=== PATIENT | female | born 1945 | race Caucasian/White ===

== ENCOUNTER 2017-04-23 03:10 | Inpatient (IN) | payer MEDICARE, OTHER ==
[2017-04-23] MEDS ORDERED: Ondansetron 4 MG/2 ML SDV IVPUSH ONE (03:39)
[2017-04-23] MEDS ORDERED: Sodium Chloride 0.9% 10 ML Syringe FLUSH PRN (03:39)
[2017-04-23] MEDS ORDERED: methylPREDNISolone Sodium Succinate 125 MG/2 ML SDV IVPUSH ONE (03:40)
[2017-04-23] MEDS ORDERED: Albuterol/Ipratropium 3.0-0.5 MG/3 ML Neb Soln NEB ONE ×2 (03:40→05:22)
[2017-04-23] MEDS ORDERED: Sodium Chloride 0.9% 1,000 ML IV SCH ×2 (03:45→08:15)
--- NOTE | 2017-04-23 03:45 | EDM.PDOC ---
ED HPI GENERAL MEDICAL PROBLEM - General Chief Complaint: Respiratory Problem Stated Complaint: [facility] Time Seen by Provider: 04/23/17 03:30 Source of Information: Reports: Patient, EMS History Limitations: Reports: No Limitations - History of Present Illness INITIAL COMMENTS - FREE TEXT/NARRATIVE: The patient presents by ambulance for shortness of breath and cough. This has been going on for over a week. She got sick with an upper respiratory infection back in February and then she had some RUQ abdominal pain. She has cholilithiasis. She was going to have surgery but she needed to be medically cleared and they found she had A-fib. She had an echocardiogram and stress test and that all looked good. She has no fever or chills today. She has no sore throat, chest pain, abdominal pain, nausea or vomiting. She had to sleep in a chair last night. She does have COPD. Onset: Gradual Duration: Week(s): (1) Severity: Moderate Improves with: Reports: None Worsens with: Reports: None Associated Symptoms: Reports: Cough, Shortness of Breath. Denies: Chest Pain, Fever/Chills, Nausea/Vomiting - Related Data Allergies Allergy/AdvReac Type Severity Reaction Status Date / Time aspirin AdvReac Nausea Verified 04/23/17 03:16 Home Meds: Home Meds Albuterol [Ventolin HFA] 2 puff INH Q4HR PRN 04/23/17 [History] Aspirin [Low Dose Aspirin EC] 81 mg PO DAILY 04/23/17 [History] B2/Vit A,C & E/Lut/Zeaxanth/Mn [Icaps] 2 tab PO DAILY 04/23/17 [History] Diltiazem HCl [Diltiazem 24Hr ER] 240 mg PO DAILY 04/23/17 [History] LORazepam 0.5 mg PO BID PRN 04/23/17 [History] Metoprolol Succinate [Toprol Xl] 25 mg PO DAILY 04/23/17 [History] [place]-3 Fatty Acids/Fish Oil [Fish Oil 1,200 mg Softgel] 1 each PO DAILY [History] Pravastatin Sodium [Pravastatin Sodium] 20 mg PO DAILY 04/23/17 [History] Psyllium Husk [Psyllium Fiber] 1 tab PO DAILY 04/23/17 [History] Rivaroxaban [Xarelto] 20 mg PO DAILY 04/23/17 [History] Tiotropium [Spiriva Handihaler] 1 cap INH DAILY 04/23/17 [History] Valsartan [Valsartan] 40 mg PO DAILY 04/23/17 [History] Past Medical History Cardiovascular History: Reports: High Cholesterol, Hypertension, [place], SOB on Exertion Respiratory History: Reports: COPD Gastrointestinal History: Reports: Cholelithiasis, Hemorrhoids - Past Surgical History GI Surgical History: Reports: Appendectomy Social & Family History - Tobacco Use Smoking Status *Q: Former Smoker Used Tobacco, but Quit: Yes Month Tobacco Last Used: 2018 ED ROS GENERAL - Review of Systems Review Of Systems: See Below Constitutional: Reports: No Symptoms HEENT: Reports: No Symptoms Respiratory: Reports: Shortness of Breath, Cough Cardiovascular: Reports: No Symptoms Endocrine: Reports: No Symptoms GI/Abdominal: Reports: No Symptoms : Reports: No Symptoms Musculoskeletal: Reports: No Symptoms Skin: Reports: No Symptoms Neurological: Reports: No Symptoms ED EXAM, GENERAL - Physical Exam Exam: See Below Exam Limited By: No Limitations General Appearance: Alert, No Apparent Distress Ears: Normal External Exam Nose: Normal Inspection Head: Atraumatic, Normocephalic Neck: Normal Inspection Respiratory/Chest: No Respiratory Distress, Lungs Clear, Normal Breath Sounds Cardiovascular: No Edema, No Murmur, Irregularly Irregular GI/Abdominal: Soft, Non-Tender, No Organomegaly, No Mass Back Exam: Normal Inspection Extremities: Normal Inspection EKG INTERPRETATION EKG Date: 04/23/17 Time: 03:21 Rhythm: A-Fib Rate (Beats/Min): 101 [place]: Normal QRS: Normal ST-T: Normal QT: Normal EKG Interpretation Comments: PVC Course - Vital Signs Last Recorded V/S: Last Vital Signs Temp 97.5 F 04/23/17 03:16 Pulse 111 H 04/23/17 05:04 Resp 20 04/23/17 05:04 BP 155/92 H 04/23/17 05:03 Pulse Ox 96 04/23/17 05:30 - Orders/Labs/Meds Orders: Active Orders 24 hr Category Date Time Status Cardiac Monitoring [RC] . DIRECTED Care 04/23/17 03:39 Active EKG Documentation Completion [RC] STAT Care 04/23/17 03:40 Active Oxygen Therapy [RC] PRN Care 04/23/17 03:39 Active Peripheral IV Care [RC] . DIRECTED Care 04/23/17 03:40 Active RT Aerosol Therapy [RC] ASDIRECTED Care 04/23/17 03:40 Active RT Aerosol Therapy [RC] ASDIRECTED Care 04/23/17 05:22 Active Chest 1V Frontal [CR] Stat Exams 04/23/17 03:40 Taken Sodium Chloride 0.9% [Normal Saline] 1,000 ml Med 04/23/17 03:45 Active IV ASDIRECTED Sodium Chloride 0.9% [Saline Flush] Med 04/23/17 03:39 Active 10 ml FLUSH ASDIRECTED PRN ED Antiemetic Medication Reflex [OM.PC] Stat Oth 04/23/17 03:39 Ordered Peripheral IV Insertion Adult [OM.PC] Stat Oth 04/23/17 03:39 Ordered Medication Orders Sodium Chloride (Normal Saline) 1,000 mls @ 125 mls/hr IV ASDIRECTED REX Last Admin: 04/23/17 03:50 Dose: 125 mls/hr Sodium Chloride (Saline Flush) 10 ml FLUSH ASDIRECTED PRN PRN Reason: Keep Vein Open Last Admin: 04/23/17 03:53 Dose: 10 ml Labs: Laboratory Tests 04/23/17 04/23/17 04/23/17 Range/Units 03:33 03:33 03:33 WBC 8.72 (3.98-10.04) K/mm3 RBC 4.36 (3.98-5.22) M/mm3 Hgb 12.7 (11.2-15.7) gm/L Hct 38.7 (34.1-44.9) % MCV 88.8 (79.4-94.8) fl MCH 29.1 (25.6-32.2) pg MCHC 32.8 (32.2-35.5) g/dl RDW Std Deviation 46.9 H (36.4-46.3) fL Plt Count 245 (182-369) K/mm3 MPV 10.0 (9.4-12.3) fl Neut % (Auto) 69.5 (34.0-71.1) % Lymph % (Auto) 17.9 L (19.3-51.7) % [place] % (Auto) 7.8 (4.7-12.5) % Eos % (Auto) 4.2 (0.7-5.8) Baso % (Auto) 0.5 (0.1-1.2) % Neut # (Auto) 6.06 (1.56-6.13) K/mm3 Lymph # (Auto) 1.56 (1.18-3.74) K/mm3 [place] # (Auto) 0.68 H (0.24-0.36) K/mm3 Eos # (Auto) 0.37 H (0.04-0.36) K/mm3 Baso # (Auto) 0.04 (0.01-0.08) K/mm3 Sodium 133 L (136-145) mEq/L Potassium 4.2 (3.5-5.1) mEq/L Chloride 96 L (98-107) mEq/L Carbon Dioxide 31 (21-32) mEq/L Anion Gap 10.2 (5-15) BUN 14 (7-18) mg/dL Creatinine 0.7 (0.55-1.02) mg/dL Est Cr Clr Drug Dosing 57.46 mL/min Estimated GFR (MDRD) > 60 (>60) mL/min BUN/Creatinine Ratio 20.0 H (14-18) Glucose 111 (83-115) mg/dL Calcium 8.7 (8.5-10.1) mg/dL Total Bilirubin 0.2 (0.2-1.0) mg/dL AST 45 H (15-37) U/L ALT 74 H (14-59) U/L Alkaline Phosphatase 77 (46-116) U/L Troponin I < 0.017 (0.00-0.056) ng/mL NT-Pro-B Natriuret Pep 1512 H (0-125) pg/mL Total Protein 7.2 (6.4-8.2) g/dl Albumin 3.8 (3.4-5.0) g/dl Globulin 3.4 gm/dL Albumin/Globulin Ratio 1.1 (1-2) Meds: Medications Generic Name Dose Route Start Last Admin Trade Name Freq PRN Reason Stop Dose Admin Sodium Chloride 1,000 mls @ 125 mls/hr 04/23/17 03:45 04/23/17 03:50 Normal Saline IV 125 mls/hr ASDIRECTED REX Administration Sodium Chloride 10 ml 04/23/17 03:39 04/23/17 03:53 Saline Flush FLUSH 10 ml ASDIRECTED PRN Administration Keep Vein Open Discontinued Medications Generic Name Dose Route Start Last Admin Trade Name Mary PRN Reason Stop Dose Admin Albuterol/Ipratropium 3 ml 04/23/17 03:40 04/23/17 03:56 Duoneb 3.0-0.5 Mg/3 Ml NEB 04/23/17 03:41 3 ml ONETIME ONE Administration Albuterol/Ipratropium 3 ml 04/23/17 05:22 04/23/17 05:30 Duoneb 3.0-0.5 Mg/3 Ml NEB 04/23/17 05:23 3 ml ONETIME ONE Administration Methylprednisolone Sodium Succinate 125 mg 04/23/17 03:40 04/23/17 03:53 Solu-Medrol IVPUSH 04/23/17 03:41 125 mg ONETIME ONE Administration Ondansetron HCl 4 mg 04/23/17 03:39 04/23/17 03:51 Zofran IVPUSH 04/23/17 03:40 4 mg ONETIME ONE Administration Ondansetron HCl Confirm 04/23/17 03:53 04/23/17 03:55 Zofran Administered 04/23/17 03:54 Not Given Dose 4 mg .ROUTE .STK-MED ONE - Re-Assessments/Exams Free Text/Narrative Re-Assessment/Exam: 04/23/17 03:47 She was 87% on room air when she arrived. I ordered oxygen, labs, CXR, IV NS at 125mL/hr, duoneb, Solu-medrol 125mg IV and zofran 4mg IV because she said prednisone made her sick. 04/23/17 05:25 Her EKG shows atrial fib with no acute changes. Her CXR shows emphysema but no infiltrates and no congestive changes. Her CBC looks good. Her Na was a little low at 133. Her AST was elevated at 45 and ALT is elevated at 74. Her troponin is negative. Her BNP is elevated at 1512 but her CXR looks good and she has no edema in her legs. She feels much better and she sounds better. She still has some wheezing. I ordered another duoneb and I took her off her oxygen and she went down to 89%. 04/23/17 06:09 After the 2nd treatment I took her off the oxygen and her oxygen saturations dipped down to 79%. I put her back on the oxygen. She feels better but with the low oxygen saturations I cannot send her home. I called Gill Silverio from our hospitalist service and she accepted the patient. Departure - Departure Time of Disposition: 06:10 Disposition: Admitted As Inpatient 65 Condition: Fair Clinical Impression: COPD exacerbation, Hypoxia, Elevated brain natriuretic peptide (BNP) level - Discharge Information Referrals: Alfa Reid MD [Primary Care Provider] - Forms: ED Department Discharge - My Orders Last 24 Hours: My Active Orders 04/23/17 03:39 Cardiac Monitoring [RC] . DIRECTED Oxygen Therapy [RC] PRN Sodium Chloride 0.9% [Saline Flush] 10 ml FLUSH ASDIRECTED PRN ED Antiemetic Medication Reflex [OM.PC] Stat Peripheral IV Insertion Adult [OM.PC] Stat 04/23/17 03:40 EKG Documentation Completion [RC] STAT Peripheral IV Care [RC] . DIRECTED RT Aerosol Therapy [RC] ASDIRECTED Chest 1V Frontal [CR] Stat 04/23/17 03:45 Sodium Chloride 0.9% [Normal Saline] 1,000 ml IV ASDIRECTED 04/23/17 05:22 RT Aerosol Therapy [RC] ASDIRECTED - Assessment/Plan Last 24 Hours: My Active Orders 04/23/17 03:39 Cardiac Monitoring [RC] . DIRECTED Oxygen Therapy [RC] PRN Sodium Chloride 0.9% [Saline Flush] 10 ml FLUSH ASDIRECTED PRN ED Antiemetic Medication Reflex [OM.PC] Stat Peripheral IV Insertion Adult [OM.PC] Stat 04/23/17 03:40 EKG Documentation Completion [RC] STAT Peripheral IV Care [RC] . DIRECTED RT Aerosol Therapy [RC] ASDIRECTED Chest 1V Frontal [CR] Stat 04/23/17 03:45 Sodium Chloride 0.9% [Normal Saline] 1,000 ml IV ASDIRECTED 04/23/17 05:22 RT Aerosol Therapy [RC] ASDIRECTED
[2017-04-23] MEDS ORDERED: Ondansetron 4 MG/2 ML SDV ONE (03:53)
--- NOTE | 2017-04-23 07:32 | CR ---
Chest: Portable view of the chest was obtained. Comparison: No prior chest x-ray. Heart size and mediastinum are normal. Lungs are clear. Bony structures are grossly intact. Impression: 1. Nothing acute is seen on portable chest x-ray. Diagnostic code #1
[2017-04-23] MEDS ORDERED: Diltiazem 25 MG/5 ML SDV IVPUSH ONE (08:08)
[2017-04-23] MEDS ORDERED: Morphine 2 MG/ML Syringe IVPUSH PRN (08:17)
[2017-04-23] MEDS ORDERED: Ondansetron 4 MG/2 ML SDV IVPUSH PRN (08:17)
[2017-04-23] MEDS ORDERED: Ondansetron 4 MG Tab.DIS PO PRN (08:17)
--- NOTE | 2017-04-23 08:20 | PCM.HP ---
H&P History of Present Illness - General Date of Service: 04/23/17 Admit Problem/Dx: Admission Diagnosis/Problem Admission Diagnosis/Problem COPD, Moderate chronic obstructive pulmonary disease Source of Information: Patient, Other (ED notes) History Limitations: Reports: No Limitations - History of Present Illness Initial Comments - Free Text/Narative: Sade is a pleasant, talkative 71yo female admitted early this morning with COPD exacerbation and hypoxia- oxygen saturations at 79% on RA, atrial fibrillation newly diagnosed 2 weeks ago now in RVR. She presented to ED last night with SOB on exertion while at [employer]. She was unable to catch her breath and felt racing heart beats. Denied any c/o CP or dizziness at that time just unable to catch her breath. She gives me a history of not feeling right since early February after a "bad cold". She went into her PCP, Dr. Reid around 3 weeks after developing cough and congestion, was placed on abx, then on "prednisone". Since that time she has not felt good. She also developed RUQ abdominal pain, was found to have gallstones. In preparation for cholecystectomy, EKG was performed and she was found to be in new onset afib , this was around 2 weeks ago. She was started on cardizem then toprol was added for further rate control. She had echocardiogram and stress testing evaluation both which patient states were "normal". Echo results have been requested for review. PMH includes COPD (quit smoking 8 years ago), Hx of AMI at age 49 (angiogram but no intervention or stenting per patient report), HTN, HLD, hemorrhoids, gallstones, anxiety. Patient is Full Code status. PCP is Dr. Reid with [facility] in [place]. - Related Data Allergies/Adverse Reactions: Allergies Allergy/AdvReac Type Severity Reaction Status Date / Time nicotine [From Nicoderm CQ] AdvReac Mild Rash Verified 04/23/17 10:43 metals Allergy Rash Uncoded 04/23/17 08:04 Home Medications: Home Meds Albuterol [Ventolin HFA] 2 puff INH Q4HR PRN 04/23/17 [History] Aspirin [Low Dose Aspirin EC] 81 mg PO DAILY 04/23/17 [History] B2/Vit A,C & E/Lut/Zeaxanth/Mn [Icaps] 2 tab PO DAILY 04/23/17 [History] Diltiazem HCl [Diltiazem 24Hr ER] 240 mg PO DAILY 04/23/17 [History] LORazepam 0.5 mg PO BID PRN 04/23/17 [History] Metoprolol Succinate [Toprol Xl] 25 mg PO DAILY 04/23/17 [History] Nicotine Polacrilex [Nicotine Lozenge] 2 mg BUCCAL DAILY PRN 04/23/17 [History] [place]-3 Fatty Acids/Fish Oil [Fish Oil 1,200 mg Softgel] 1 cap PO DAILY [History] Pravastatin Sodium [Pravastatin Sodium] 20 mg PO DAILY 04/23/17 [History] Psyllium Husk [Psyllium Fiber] 1 cap PO DAILY 04/23/17 [History] Rivaroxaban [Xarelto] 20 mg PO DAILY 04/23/17 [History] Tiotropium [Spiriva Handihaler] 1 cap INH DAILY 04/23/17 [History] Valsartan [Valsartan] 40 mg PO DAILY 04/23/17 [History] Past Medical History Cardiovascular History: Reports: High Cholesterol, Hypertension, [place], SOB on Exertion Respiratory History: Reports: COPD Gastrointestinal History: Reports: Cholelithiasis, Hemorrhoids - Past Surgical History GI Surgical History: Reports: Appendectomy Social & Family History - Tobacco Use Smoking Status *Q: Former Smoker Used Tobacco, but Quit: Yes Month Tobacco Last Used: 2009 - Caffeine Use Caffeine Use: Reports: Other Other Caffeine Use: drinks decaffinated coffee - Recreational Drug Use Recreational Drug Use: No H&P Review of Systems - Review of Systems: Review Of Systems: See Below General: Reports: Malaise, Fatigue. Denies: Fever, Chills, Weakness HEENT: Reports: No Symptoms. Denies: Headaches Pulmonary: Reports: Shortness of Breath, Wheezing, Cough. Denies: Sputum, Hemoptysis Cardiovascular: Reports: Palpitations, Dyspnea on Exertion, Orthopnea, Lightheadedness. Denies: Chest Pain, Edema, Syncope Gastrointestinal: Reports: No Symptoms Genitourinary: Reports: No Symptoms Musculoskeletal: Reports: No Symptoms Psychiatric: Reports: Other (situational depression with multiple losses of family and friends (9 deaths in the past 6 months); states she is handling this "pretty well") Neurological: Reports: No Symptoms. Denies: Confusion, Headache, Numbness, Tingling Hematologic/Lymphatic: Denies: Anemia Exam - Exam Exam: See Below - Vital Signs Vital Signs: Last Vital Signs Temp 97.5 F 04/23/17 03:16 Pulse 111 H 04/23/17 05:04 Resp 20 04/23/17 05:04 BP 155/92 H 04/23/17 05:03 Pulse Ox 96 04/23/17 05:30 Weight: 144 lb 11.2 oz - Exam Quality Assessment: Supplemental Oxygen General: Alert, Oriented, Cooperative, Other (pleasant and talkative) HEENT: Conjunctiva Clear, EOMI, Hearing Intact, Mucosa Moist & [place], Pupils Equal, Pupils Reactive, PERRLA Neck: Supple Lungs: Normal Respiratory Effort, Decreased Breath Sounds, Rhonchi, Wheezing Cardiovascular: Tachycardia GI/Abdominal Exam: Normal Bowel Sounds, Soft, Non-Tender (Female) Exam: Deferred Rectal (Female) Exam: Deferred Back Exam: Normal Inspection Extremities: Normal Inspection, No Pedal Edema, Normal Capillary Refill Peripheral Pulses: 2+: Dorsalis Pedis (L), Dorsalis Pedis (R) Skin: Warm, Dry, Intact Neurological: Cranial Nerves Intact Neuro Extensive - Mental Status: Alert, Oriented x3, Normal Mood/Affect, Normal Cognition, Memory Intact Psychiatric: Alert, Normal Affect - Patient Data Result Diagrams: 04/23/17 03:33 04/23/17 08:23 EKG INTERPRETATION EKG Date: 04/23/17 (822 this morning) Rhythm: A-Fib (with RVR- rate of 150) P-Wave: Absent QRS: Normal EKG Interpretation Comments: A-fib with RVR rate 150's *Q Meaningful Use (ADM) - VTE *Q VTE Criteria *Q: - Stroke *Q Stroke Criteria *Q: - AMI *Q AMI Criteria *Q: - Problem List (1) Atrial fibrillation with RVR SNOMED Code(s): 555535316792718 ICD Code: I48.91 - UNSPECIFIED ATRIAL FIBRILLATION Status: Acute Priority : High Current Visit: Yes (2) COPD exacerbation SNOMED Code(s): 572811932 ICD Code: J44.1 - CHRONIC OBSTRUCTIVE PULMONARY DISEASE W (ACUTE) EXACERBATION Status: Acute Priority: High Current Visit: Yes (3) Elevated brain natriuretic peptide (BNP) level SNOMED Code(s): 604668089 ICD Code: R79.89 - OTHER SPECIFIED ABNORMAL FINDINGS OF BLOOD CHEMISTRY Status: Acute Priority: High Current Visit: Yes (4) Hypoxia SNOMED Code(s): 978096631 ICD Code: R09.02 - HYPOXEMIA Status: Acute Priority: High Current Visit : Yes Problem List Initiated/Reviewed/Updated: Yes Orders Last 24hrs: Active Orders 24 hr Category Date Time Status EKG Documentation Completion [RC] STAT Care 04/23/17 08:09 Ordered RT Incentive Spirometry [RC] Q2HWA Care 04/23/17 08:10 Ordered Smoking Cessation Education [RC] DAILY Care 04/23/17 08:14 Ordered BASIC METABOLIC PANEL,BMP [CHEM] Routine Lab 04/23/17 08:11 Ordered C-REACTIVE PROTEIN [CHEM] Routine Lab 04/23/17 08:11 Ordered MAGNESIUM [CHEM] Routine Lab 04/23/17 08:11 Ordered MYCOPLASMA PNEUMONIAE IGM AB [CHEM] Routine Lab 04/23/17 08:12 Ordered RESPIRATORY PANEL BY PCR [MREF] Routine Lab 04/23/17 08:13 Ordered STREP PNEUMONIAE ANTIGEN [MREF] Routine Lab 04/23/17 08:12 Ordered TROPONIN I [CHEM] Routine Lab 04/23/17 08:11 Ordered Aspirin [Halfprin] Med 04/23/17 09:00 Ordered 81 mg PO DAILY Azithromycin [Zithromax] 500 mg Med 04/23/17 08:15 Ordered Sodium Chloride 0.9% [Normal Saline] 250 ml IV Q24H Diltiazem HCl Med 04/23/17 09:00 Ordered 240 mg PO DAILY Famotidine [Pepcid] Med 04/23/17 09:00 Ordered 20 mg PO BID Metoprolol Succinate [Toprol XL] Med 04/23/17 09:00 Ordered 25 mg PO DAILY Morphine Med 04/23/17 08:17 Ordered 2 mg IVPUSH Q2H PRN Nicotine [Habitrol] Med 04/23/17 09:00 Ordered 21 mg TRDERM DAILY Ondansetron [Zofran ODT] Med 04/23/17 08:17 Ordered 4 mg PO Q4H PRN Ondansetron [Zofran] Med 04/23/17 08:17 Ordered 4 mg IVPUSH Q6H PRN Pravastatin Sodium Med 04/23/17 09:00 Ordered 20 mg PO DAILY Rivaroxaban [Xarelto] Med 04/23/17 09:00 Ordered 20 mg PO DAILY Sodium Chloride 0.9% @ 75 MLS/HR(1000ml Bag) Med 04/23/17 08:15 Ordered Sodium Chloride 0.9% [Normal Saline] 1,000 ml IV ASDIRECTED Tiotropium Med 04/23/17 09:00 Ordered 1 cap INH DAILY Valsartan [Valsartan] Med 04/23/17 09:00 Ordered 40 mg PO DAILY RT Flutter Valve Therapy [RT Acapella] [RESPCARE] Oth 04/23/17 08:10 Ordered Routine Medication Orders Aspirin (Halfprin) 81 mg PO DAILY REX Diltiazem HCl (Dilacor Xr) 240 mg PO DAILY REX Sodium Chloride (Normal Saline) 1,000 mls @ 75 mls/hr IV ASDIRECTED REX Azithromycin 500 mg/ Sodium (Chloride) 250 mls @ 250 mls/hr IV Q24H REX Losartan Potassium (Cozaar) 25 mg PO DAILY REX Metoprolol Succinate (Toprol Xl) 25 mg PO DAILY REX Nicotine (Habitrol) 21 mg TRDERM DAILY [facility] Non-Formulary Medication (Pravastatin Sodium) 20 mg PO DAILY REX Non-Formulary Medication (Rivaroxaban [Xarelto]) 20 mg PO DAILY REX Sodium Chloride (Saline Flush) 10 ml FLUSH ASDIRECTED PRN PRN Reason: Keep Vein Open Last Admin: 04/23/17 03:53 Dose: 10 ml Tiotropium [place] (Spiriva Handihaler) 18 mcg INH DAILY [facility] Assessment/Plan Comment:: I/P: Acute COPD exacerbation with hypoxia -Hx of COPD, remote smoking hx -CXR unremarkable for acute findings in ED-Repeat CXR in am -Influenza negative, obtain resp viral panel, mycoplasma and strep pneumo antigen today -Supplemental oxygen to keep saturations >90% -Solumedrol IVP -Zithromax for antiinflammatory -RT/Nebs/IS/FV Afib with RVR -Newly dx afib 2 weeks ago, was placed on cardizem then added toprol per PCP -Has had workup with echo (requested record) and stress test, both WNL per patient report -Cont xarelto, cardizem---increased toprol dose to 50mg and changed to HS -PRN cardizem IVP for tachycardia- see orders -Obtained repeat EKG this am, confirms afib RVR rate 150's. -Repeat troponin negative -Query sleep apnea- recommend sleep study after discharge/as outpatient Chronic: Anxiety- cont ativan PRN, ? reactive/situational depression with multiple losses in her life over the past 6 months---spiritual care consult. HTN- stable, cont home meds HLD- cont home meds Other: GI prophylax- pepcid DVT prophylax- cont xarelto [employer] consult- heart healthy diet/new onset afib Ambulate, watch HR RT Consult as above Daily labs DC plan: likely DC in 2-3 days pending rate control and weaning from supplemental oxygen Patient is Full Code status PCP is Dr. Reid with [facility]
[2017-04-23] MEDS: Azithromycin 500 MG in Sodium Chloride 0.9% 250 ML IV SCH (08:57)
[2017-04-23] MEDS ORDERED: Metoprolol Succinate 25 MG Tab.ER PO SCH (09:00)
[2017-04-23] MEDS: Rivaroxaban 10 MG Tab PO SCH (09:00)
[2017-04-23] MEDS: Diltiazem 240 MG Cap.ER PO SCH (09:00)
[2017-04-23] MEDS ORDERED: Nicotine 21 MG/24 Hr Patch TRDERM SCH (09:00)
[2017-04-23] MEDS: Losartan 25 MG Tab PO SCH (09:01)
[2017-04-23] MEDS: Aspirin 81 MG Tab.EC PO SCH (09:01)
[2017-04-23] MEDS: Famotidine 20 MG Tab PO SCH ×2 (09:01→20:30)
[2017-04-23] MEDS: Tiotropium Inhaler 18 MCG Inhalation Powder Cap Kit of 5 INH SCH (09:22)
[2017-04-23] MEDS ORDERED: Morphine 4 MG/ML Syringe IVPUSH PRN (13:02)
[2017-04-23] MEDS ORDERED: Nicotine Polacrilex 2 MG Gum BUCCAL PRN (13:07)
[2017-04-23] MEDS ORDERED: Albuterol 0.083% 2.5 MG/3 ML Neb Soln NEB PRN (13:09)
[2017-04-23] MEDS ORDERED: Diltiazem 25 MG/5 ML SDV IVPUSH PRN (13:12)
[2017-04-23] MEDS ORDERED: Docusate Sodium 100 MG Cap PO PRN (13:52)
[2017-04-23] MEDS ORDERED: Magnesium Hydroxide 400 MG/5 ML Susp 30 ML Cup PO PRN (13:52)
[2017-04-23] MEDS ORDERED: Ibuprofen 400 MG Tab PO PRN (13:52)
[2017-04-23] MEDS: Acetaminophen 325 MG Tab PO PRN (13:54)
[2017-04-23] MEDS: Magnesium Oxide 400 MG Tab PO SCH (13:55)
[2017-04-23] MEDS: Albuterol/Ipratropium 3.0-0.5 MG/3 ML Neb Soln NEB SCH ×2 (14:48→20:11)
[2017-04-23] MEDS: Simvastatin 10 MG Tab PO SCH (20:30)
[2017-04-23] MEDS: Metoprolol Succinate 50 MG Tab.ER PO SCH (20:30)
[2017-04-23] MEDS: LORazepam 1 MG Tab PO PRN (22:01)
[2017-04-24] MEDS: Albuterol/Ipratropium 3.0-0.5 MG/3 ML Neb Soln NEB SCH ×4 (03:12→20:57)
--- NOTE | 2017-04-24 08:08 | PCM.PN ---
- General Info Date of Service: 04/24/17 Admission Dx/Problem (Free Text): Admission Diagnosis/Problem Admission Diagnosis/Problem COPD, Moderate chronic obstructive pulmonary disease Doing much better, less SOB. Still coughing, minimal production. Still on 2L/NC supplemental O2. slept well. Functional Status: Reports: Pain Controlled, Tolerating Diet, Ambulating, Urinating, Incentive Spirometry. Denies: New Symptoms - Review of Systems General: Denies: Fever HEENT: Reports: No Symptoms Pulmonary: Reports: Shortness of Breath, Cough. Denies: Pleuritic Chest Pain, Sputum, Hemoptysis, Wheezing Cardiovascular: Reports: Dyspnea on Exertion (chronic). Denies: Chest Pain, Palpitations, Orthopnea, Edema, Lightheadedness Gastrointestinal: Reports: No Symptoms Genitourinary: Reports: No Symptoms Neurological: Reports: No Symptoms - Patient Data Vitals - Most Recent: Last Vital Signs Temp 98.2 F 04/23/17 20:00 Pulse 101 H 04/24/17 03:21 Resp 24 H 04/24/17 03:21 BP 147/78 H 04/24/17 03:21 Pulse Ox 94 L 04/24/17 04:00 Weight - Most Recent: 144 lb 11.2 oz I&O - Last 24 Hours: Intake & Output 04/23/17 04/24/17 04/24/17 22:59 06:59 14:59 Intake Total 2700 1054 Output Total 650 1000 Balance 2050 54 Lab Results Last 24 Hours: Laboratory Results - last 24 hr 04/23/17 04/23/17 04/24/17 Range/Units 08:23 09:50 06:45 WBC 10.62 H (3.98-10.04) K/mm3 RBC 4.14 (3.98-5.22) M/mm3 Hgb 11.7 (11.2-15.7) gm/L Hct 37.9 (34.1-44.9) % MCV 91.5 (79.4-94.8) fl MCH 28.3 (25.6-32.2) pg MCHC 30.9 L (32.2-35.5) g/dl RDW Std Deviation 49.0 H (36.4-46.3) fL Plt Count 246 (182-369) K/mm3 MPV 10.2 (9.4-12.3) fl Neut % (Auto) 82.6 H (34.0-71.1) % Lymph % (Auto) 10.8 L (19.3-51.7) % [place] % (Auto) 6.5 (4.7-12.5) % Eos % (Auto) 0 L (0.7-5.8) Baso % (Auto) 0.0 L (0.1-1.2) % Neut # (Auto) 8.77 H (1.56-6.13) K/mm3 Lymph # (Auto) 1.15 L (1.18-3.74) K/mm3 [place] # (Auto) 0.69 H (0.24-0.36) K/mm3 Eos # (Auto) 0.00 L (0.04-0.36) K/mm3 Baso # (Auto) 0.00 L (0.01-0.08) K/mm3 Sodium 133 L (136-145) mEq/L Potassium 4.2 (3.5-5.1) mEq/L Chloride 96 L (98-107) mEq/L Carbon Dioxide 30 (21-32) mEq/L Anion Gap 11.2 (5-15) BUN 12 (7-18) mg/dL Creatinine 0.8 (0.55-1.02) mg/dL Est Cr Clr Drug Dosing 50.27 mL/min Estimated GFR (MDRD) > 60 (>60) mL/min BUN/Creatinine Ratio 15.0 (14-18) Glucose 144 H (83-115) mg/dL Calcium 8.3 L (8.5-10.1) mg/dL Magnesium 1.7 L (1.8-2.4) mg/dl Troponin I < 0.017 (0.00-0.056) ng/mL C-Reactive Protein 0.7 (<1.0) mg/dL Urine Color Yellow (Yellow) Urine Appearance Clear (Clear) Urine pH 6.0 (5.0-8.0) Ur Specific [place] 1.025 (1.005-1.030) Urine Protein 1+ H (Negative) Urine Glucose (UA) Negative (Negative) Urine Ketones Negative (Negative) Urine Occult Blood Negative (Negative) Urine Nitrite Negative (Negative) Urine Bilirubin Negative (Negative) Urine Urobilinogen 0.2 (0.2-1.0) Ur Leukocyte Esterase Negative (Negative) Urine RBC Not seen (0-5) /hpf Urine WBC 0-5 (0-5) /hpf Ur Epithelial Cells 0-5 (0-5) /hpf Urine Bacteria Not seen (FEW) /hpf Urine Mucus Few (FEW) /hpf Mycoplasma pneumon IgM Negative (NEGATIVE) 04/24/17 Range/Units 06:45 WBC (3.98-10.04) K/mm3 RBC (3.98-5.22) M/mm3 Hgb (11.2-15.7) gm/L Hct (34.1-44.9) % MCV (79.4-94.8) fl MCH (25.6-32.2) pg MCHC (32.2-35.5) g/dl RDW Std Deviation (36.4-46.3) fL Plt Count (182-369) K/mm3 MPV (9.4-12.3) fl Neut % (Auto) (34.0-71.1) % Lymph % (Auto) (19.3-51.7) % [place] % (Auto) (4.7-12.5) % Eos % (Auto) (0.7-5.8) Baso % (Auto) (0.1-1.2) % Neut # (Auto) (1.56-6.13) K/mm3 Lymph # (Auto) (1.18-3.74) K/mm3 [place] # (Auto) (0.24-0.36) K/mm3 Eos # (Auto) (0.04-0.36) K/mm3 Baso # (Auto) (0.01-0.08) K/mm3 Sodium 133 L (136-145) mEq/L Potassium 4.9 (3.5-5.1) mEq/L Chloride 99 (98-107) mEq/L Carbon Dioxide 29 (21-32) mEq/L Anion Gap 9.9 (5-15) BUN 14 (7-18) mg/dL Creatinine 0.8 (0.55-1.02) mg/dL Est Cr Clr Drug Dosing 50.27 mL/min Estimated GFR (MDRD) > 60 (>60) mL/min BUN/Creatinine Ratio 17.5 (14-18) Glucose 124 H (83-115) mg/dL Calcium 8.7 (8.5-10.1) mg/dL Magnesium 2.0 (1.8-2.4) mg/dl Troponin I (0.00-0.056) ng/mL C-Reactive Protein < 0.2 (<1.0) mg/dL Urine Color (Yellow) Urine Appearance (Clear) Urine pH (5.0-8.0) Ur Specific [place] (1.005-1.030) Urine Protein (Negative) Urine Glucose (UA) (Negative) Urine Ketones (Negative) Urine Occult Blood (Negative) Urine Nitrite (Negative) Urine Bilirubin (Negative) Urine Urobilinogen (0.2-1.0) Ur Leukocyte Esterase (Negative) Urine RBC (0-5) /hpf Urine WBC (0-5) /hpf Ur Epithelial Cells (0-5) /hpf Urine Bacteria (FEW) /hpf Urine Mucus (FEW) /hpf Mycoplasma pneumon IgM (NEGATIVE) Med Orders - Current: Current Medications Acetaminophen (Tylenol) 650 mg PO Q4H PRN PRN Reason: Pain Last Admin: 04/23/17 13:54 Dose: 650 mg Albuterol (Proventil Neb Soln) 2.5 mg NEB Q2H PRN PRN Reason: SOB/Wheezing Albuterol/Ipratropium (Duoneb 3.0-0.5 Mg/3 Ml) 3 ml NEB Q6HRRT [facility] Last Admin: 04/24/17 03:12 Dose: 3 ml Aspirin (Halfprin) 81 mg PO DAILY [facility] Last Admin: 04/23/17 09:01 Dose: 81 mg Diltiazem HCl (Dilacor Xr) 240 mg PO DAILY [facility] Last Admin: 04/23/17 09:00 Dose: 240 mg Diltiazem HCl (Diltiazem) 20 mg IVPUSH Q4H PRN PRN Reason: HR >140bpm Last Admin: 04/23/17 17:49 Dose: 20 mg Docusate Sodium (Colace) 100 mg PO BID PRN PRN Reason: Constipation Famotidine (Pepcid) 20 mg PO BID [facility] Last Admin: 04/23/17 20:30 Dose: 20 mg Furosemide (Lasix) 20 mg PO DAILY [facility] Azithromycin 500 mg/ Sodium (Chloride) 250 mls @ 250 mls/hr IV Q24H [facility] Last Admin: 04/23/17 08:57 Dose: 250 mls/hr Ibuprofen (Motrin) 400 mg PO Q6H PRN PRN Reason: Pain (mild 1-3) Lorazepam (Ativan) 0.5 mg PO BID PRN PRN Reason: Anxiety Last Admin: 04/23/17 22:01 Dose: 0.5 mg Losartan Potassium (Cozaar) 25 mg PO DAILY [facility] Last Admin: 04/23/17 09:01 Dose: 25 mg Magnesium Hydroxide (Milk Of Magnesia) 30 ml PO Q12H PRN PRN Reason: Constipation Magnesium Oxide (Magnesium Oxide) 400 mg PO DAILY [facility] Last Admin: 04/23/17 13:55 Dose: 400 mg Methylprednisolone Sodium Succinate (Solu-Medrol) 80 mg IVPUSH Q12H [facility] Metoprolol Succinate (Toprol Xl) 50 mg PO BEDTIME [facility] Last Admin: 04/23/17 20:30 Dose: 50 mg Morphine Sulfate (Morphine) 2 mg IVPUSH Q2H PRN PRN Reason: pain/SOB Nicotine Polacrilex (Nicorelief) 2 mg BUCCAL DAILY PRN PRN Reason: Withdrawal Symptoms Ondansetron HCl (Zofran Odt) 4 mg PO Q4H PRN PRN Reason: Nausea/Vomiting Ondansetron HCl (Zofran) 4 mg IVPUSH Q6H PRN PRN Reason: Nausea Psyllium Husk (Metamucil Sugar Free) 1 packet PO DAILY [facility] Rivaroxaban (Xarelto) 20 mg PO DAILY [facility] Last Admin: 04/23/17 09:00 Dose: 20 mg Simvastatin (Zocor) 10 mg PO BEDTIME [facility] Last Admin: 04/23/17 20:30 Dose: 10 mg Sodium Chloride (Saline Flush) 10 ml FLUSH ASDIRECTED PRN PRN Reason: Keep Vein Open Last Admin: 04/23/17 03:53 Dose: 10 ml Tiotropium Nicasio (Spiriva Handihaler) 18 mcg INH DAILY [facility] Last Admin: 04/23/17 09:22 Dose: 1 cap Discontinued Medications Albuterol/Ipratropium (Duoneb 3.0-0.5 Mg/3 Ml) 3 ml NEB ONETIME ONE Stop: 04/23/17 03:41 Last Admin: 04/23/17 03:56 Dose: 3 ml Albuterol/Ipratropium (Duoneb 3.0-0.5 Mg/3 Ml) 3 ml NEB ONETIME ONE Stop: 04/23/17 05:23 Last Admin: 04/23/17 05:30 Dose: 3 ml Diltiazem HCl (Diltiazem) 20 mg IVPUSH ONETIME ONE Stop: 04/23/17 08:09 Last Admin: 04/23/17 08:52 Dose: 20 mg Sodium Chloride (Normal Saline) 1,000 mls @ 125 mls/hr IV ASDIRECTED [facility] Last Admin: 04/23/17 03:50 Dose: 125 mls/hr Sodium Chloride (Normal Saline) 1,000 mls @ 75 mls/hr IV ASDIRECTED [facility] Stop: 04/24/17 03:15 Last Admin: 04/23/17 13:55 Dose: 75 mls/hr Methylprednisolone Sodium Succinate (Solu-Medrol) 125 mg IVPUSH ONETIME ONE Stop: 04/23/17 03:41 Last Admin: 04/23/17 03:53 Dose: 125 mg Metoprolol Succinate (Toprol Xl) 25 mg PO DAILY [facility] Last Admin: 04/23/17 09:01 Dose: 25 mg Miscellaneous Information (Remove Patch) 1 ea TRDERM DAILY [facility] Morphine Sulfate (Morphine) 2 mg IVPUSH Q2H PRN PRN Reason: pain/SOB Nicotine (Habitrol) 21 mg TRDERM DAILY [facility] Last Admin: 04/23/17 09:04 Dose: Not Given Ondansetron HCl (Zofran) 4 mg IVPUSH ONETIME ONE Stop: 04/23/17 03:40 Last Admin: 04/23/17 03:51 Dose: 4 mg Ondansetron HCl (Zofran) Confirm Administered Dose 4 mg .ROUTE .STK-MED ONE Stop: 04/23/17 03:54 Last Admin: 04/23/17 03:55 Dose: Not Given - Exam Quality Assessment: Supplemental Oxygen, DVT Prophylaxis General: Alert, Oriented, Cooperative, No Acute Distress HEENT: Pupils Equal, EOMI, Mucous Membr. Moist/[place] Neck: Supple Lungs: Normal Respiratory Effort, Decreased Breath Sounds, Rhonchi (improved from yesterday) Cardiovascular: Irregular Rhythm GI/Abdominal Exam: Normal Bowel Sounds, Soft, Non-Tender (Female) Exam: Deferred Back Exam: Normal Inspection Extremities: No Pedal Edema, Normal Capillary Refill Peripheral Pulses: 1+: Dorsalis Pedis (L), Dorsalis Pedis (R) Neurological: No New Focal Deficit Psy/Mental Status: Alert, Normal Affect, Normal Mood - Problem List & Annotations (1) Atrial fibrillation with RVR SNOMED Code(s): 684127504254825 Code(s): I48.91 - UNSPECIFIED ATRIAL FIBRILLATION Status: Acute Priority : High Current Visit: Yes (2) COPD exacerbation SNOMED Code(s): 620625404 Code(s): J44.1 - CHRONIC OBSTRUCTIVE PULMONARY DISEASE W (ACUTE) EXACERBATION Status: Acute Priority: High Current Visit: Yes (3) Elevated brain natriuretic peptide (BNP) level SNOMED Code(s): 707257197 Code(s): R79.89 - OTHER SPECIFIED ABNORMAL FINDINGS OF BLOOD CHEMISTRY Status: Acute Priority: High Current Visit: Yes (4) Hypoxia SNOMED Code(s): 406388323 Code(s): R09.02 - HYPOXEMIA Status: Acute Priority: High Current Visit : Yes - Problem List Review Problem List Initiated/Reviewed/Updated: Yes - My Orders Last 24 Hours: My Active Orders 04/23/17 08:10 RT Incentive Spirometry [RC] Q2HWA RT Flutter Valve Therapy [RT Acapella] [RESPCARE] Routine 04/23/17 08:14 Smoking Cessation Education [RC] DAILY 04/23/17 08:17 Ondansetron [Zofran ODT] 4 mg PO Q4H PRN Ondansetron [Zofran] 4 mg IVPUSH Q6H PRN 04/23/17 08:30 Azithromycin [Zithromax] 500 mg Sodium Chloride 0.9% [Normal Saline] 250 ml IV Q24H 04/23/17 09:00 Aspirin [Halfprin] 81 mg PO DAILY Diltiazem [Dilacor XR] 240 mg PO DAILY Famotidine [Pepcid] 20 mg PO BID Losartan [Cozaar] 25 mg PO DAILY Rivaroxaban [Xarelto] 20 mg PO DAILY Tiotropium [Spiriva HandiHaler] 18 mcg INH DAILY 04/23/17 09:46 RESPIRATORY PANEL BY PCR [MREF] Routine 04/23/17 09:50 STREP PNEUMONIAE ANTIGEN [MREF] Routine 04/23/17 13:02 Morphine 2 mg IVPUSH Q2H PRN 04/23/17 13:07 LORazepam [Ativan] 0.5 mg PO BID PRN Nicotine Polacrilex [Nicorelief] 2 mg BUCCAL DAILY PRN 04/23/17 13:09 Albuterol [Proventil Neb Soln] 2.5 mg NEB Q2H PRN 04/23/17 13:10 RT Aerosol Therapy [RC] ASDIRECTED 04/23/17 13:11 Ambulate [RC] QID 04/23/17 13:12 Diltiazem 20 mg IVPUSH Q4H PRN 04/23/17 13:15 Magnesium Oxide 400 mg PO DAILY 04/23/17 13:16 Consult to Marine Pipe[employer] [CONS] Routine 04/23/17 13:45 Acetaminophen [Tylenol] 650 mg PO Q4H PRN 04/23/17 13:52 Patient Status [ADT] Routine Height and Weight [RC] DAILY Oxygen Therapy [RC] PRN Up to Chair [RC] ASDIRECTED VTE/DVT Education [RC] PER UNIT ROUTINE Vital Signs [RC] Q4H Consult to Spiritual Care [CONS] Routine Docusate Sodium [Colace] 100 mg PO BID PRN Ibuprofen [Motrin] 400 mg PO Q6H PRN Magnesium Hydroxide [Milk of Magnesia] 30 ml PO Q12H PRN 04/23/17 13:53 Intake and Output [RC] 04,16 04/23/17 15:00 Albuterol/Ipratropium [DuoNeb 3.0-0.5 MG/3 ML] 3 ml NEB Q6HRRT 04/23/17 21:00 Metoprolol Succinate [Toprol XL] 50 mg PO BEDTIME Simvastatin [Zocor] 10 mg PO BEDTIME 04/24/17 05:11 Chest 2V [CR] AM 04/24/17 08:00 methylPREDNISolone Sod Succ [Solu-MEDROL] 80 mg IVPUSH Q12H 04/24/17 08:04 A1C [GLYCOSYLATED HEMOGLOBIN,HGBA1C] [CHEM] Routine 04/24/17 09:00 Furosemide [Lasix] 20 mg PO DAILY Psyllium Husk/Aspartame [Metamucil Sugar Free] 1 packet PO DAILY 04/25/17 05:11 BASIC METABOLIC PANEL,BMP [CHEM] AM C-REACTIVE PROTEIN [CHEM] AM CBC WITH AUTO DIFF [HEME] AM MAGNESIUM [CHEM] AM 04/26/17 05:11 BASIC METABOLIC PANEL,BMP [CHEM] AM C-REACTIVE PROTEIN [CHEM] AM CBC WITH AUTO DIFF [HEME] AM MAGNESIUM [CHEM] AM 04/27/17 05:11 BASIC METABOLIC PANEL,BMP [CHEM] AM C-REACTIVE PROTEIN [CHEM] AM CBC WITH AUTO DIFF [HEME] AM MAGNESIUM [CHEM] AM - Plan Plan:: I/P: Acute COPD exacerbation with hypoxia -Hx of COPD, remote smoking hx -CXR unremarkable for acute findings in ED-Repeat CXR this morning unchanged by my review---await radilogist final interp. -Influenza negative, obtain resp viral panel, mycoplasma and strep pneumo antigen today---negative mycoplasma and flu, awaiting other results. -Supplemental oxygen to keep saturations >90% -Solumedrol IVP -Zithromax for antiinflammatory -RT/Nebs/IS/FV Afib with RVR--rate controlled now at 100 or less. -Newly dx afib 2 weeks ago, was placed on cardizem then added toprol per PCP -Has had workup with echo (requested record) and stress test, both WNL per patient report---echo with 55-60% EF records rec'd and reviewed -Cont xarelmaia cardizem---increased toprol dose to 50mg and changed to HS -PRN cardizem IVP for tachycardia- see orders -Obtained repeat EKG, confirms afib RVR rate 150's upon arrival to floor from ED---rates now 100 or less -Repeat troponin negative -Query sleep apnea- recommend sleep study after discharge/as outpatient Chronic: Anxiety- cont ativan PRN, ? reactive/situational depression with multiple losses in her life over the past 6 months---spiritual care consult. HTN- stable, cont home meds HLD- cont home meds Other: GI prophylax- pepcid DVT prophylax- cont xarelto [employer] P[employer] consult- heart healthy diet/new onset afib Ambulate, watch HR RT Consult as above Daily labs Blood sugars mildly elevated--suspect from IV steroids, will check A1C-- 5.9 DC plan: likely DC in 1-2 days pending rate control and weaning from supplemental oxygen Patient is Full Code status PCP is Dr. Reid with [facility]
[2017-04-24] MEDS: Tiotropium Inhaler 18 MCG Inhalation Powder Cap Kit of 5 INH SCH (08:29)
--- NOTE | 2017-04-24 08:35 | CR ---
Chest: Two views of the chest are obtained. Comparison: Prior chest x-ray of 04/23/17. Heart size at the upper limits of normal. Tortuous thoracic aorta is seen. Lungs are hyperinflated compatible with emphysematous change. No acute parenchymal densities are seen. Questionable upper lobe pulmonary vascular redistribution is present. Bony structures are unremarkable for the patient's age. Impression: 1. Heart size at the upper limits of normal. 2. Questionable upper lobe pulmonary vascular redistribution. 3. Emphysematous change. Diagnostic code #3
[2017-04-24] MEDS: methylPREDNISolone Sodium Succinate 40 MG/1 ML SDV IVPUSH SCH ×2 (08:58→19:54)
[2017-04-24] MEDS: Azithromycin 500 MG in Sodium Chloride 0.9% 250 ML IV SCH (09:02)
[2017-04-24] MEDS: Magnesium Oxide 400 MG Tab PO SCH (09:04)
[2017-04-24] MEDS: Rivaroxaban 10 MG Tab PO SCH (09:04)
[2017-04-24] MEDS: Famotidine 20 MG Tab PO SCH ×3 (09:05→20:08)
[2017-04-24] MEDS: Aspirin 81 MG Tab.EC PO SCH (09:05)
[2017-04-24] MEDS: Diltiazem 240 MG Cap.ER PO SCH (09:05)
[2017-04-24] MEDS: Losartan 25 MG Tab PO SCH (09:05)
[2017-04-24] MEDS: Furosemide 20 MG Tab PO SCH (09:05)
[2017-04-24] MEDS: Psyllium Husk Powder Sugar Free 3.4 GM Packet PO SCH (09:18)
[2017-04-24] MEDS ORDERED: Metoprolol Tartrate 5 MG/5 ML SDV IVPUSH PRN (19:43)
[2017-04-24] MEDS: Metoprolol Succinate 50 MG Tab.ER PO SCH ×2 (19:55→20:08)
[2017-04-24] MEDS: Simvastatin 10 MG Tab PO SCH (19:59)
[2017-04-24] MEDS: LORazepam 1 MG Tab PO PRN (23:12)
[2017-04-25] MEDS: Albuterol/Ipratropium 3.0-0.5 MG/3 ML Neb Soln NEB SCH ×4 (02:00→22:23)
[2017-04-25] MEDS: Azithromycin 500 MG in Sodium Chloride 0.9% 250 ML IV SCH (08:03)
[2017-04-25] MEDS: methylPREDNISolone Sodium Succinate 40 MG/1 ML SDV IVPUSH SCH (08:03)
[2017-04-25] MEDS: Aspirin 81 MG Tab.EC PO SCH (08:07)
[2017-04-25] MEDS: Diltiazem 240 MG Cap.ER PO SCH (08:07)
[2017-04-25] MEDS: Rivaroxaban 10 MG Tab PO SCH (08:08)
[2017-04-25] MEDS: Losartan 25 MG Tab PO SCH (08:08)
[2017-04-25] MEDS: Psyllium Husk Powder Sugar Free 3.4 GM Packet PO SCH (08:09)
[2017-04-25] MEDS: Furosemide 20 MG Tab PO SCH (08:09)
[2017-04-25] MEDS: Magnesium Oxide 400 MG Tab PO SCH (08:09)
[2017-04-25] MEDS: Famotidine 20 MG Tab PO SCH ×2 (08:09→20:54)
[2017-04-25] MEDS: LORazepam 1 MG Tab PO PRN ×2 (08:19→22:41)
[2017-04-25] MEDS: Tiotropium Inhaler 18 MCG Inhalation Powder Cap Kit of 5 INH SCH (09:33)
[2017-04-25] MEDS: Metoprolol Tartrate 50 MG Tab PO SCH ×2 (12:13→20:56)
[2017-04-25] MEDS ORDERED: Metoprolol Tartrate 25 MG Tab PO SCH (13:00)
[2017-04-25] MEDS: Acetaminophen 325 MG Tab PO PRN (16:42)
--- NOTE | 2017-04-25 17:17 | PCM.PN ---
- General Info Date of Service: 04/25/17 Subjective Update: Continues to have anxiety, but improving; will DC 24-48 hours. Functional Status: Reports: Tolerating Diet, Ambulating, Urinating - Review of Systems General: Reports: No Symptoms HEENT: Reports: No Symptoms Pulmonary: Reports: Shortness of Breath Cardiovascular: Reports: No Symptoms Gastrointestinal: Reports: No Symptoms Genitourinary: Reports: No Symptoms Musculoskeletal: Reports: No Symptoms Skin: Reports: No Symptoms Neurological: Reports: No Symptoms Psychiatric: Reports: No Symptoms - Patient Data Vitals - Most Recent: Last Vital Signs Temp 37.0 C 04/25/17 07:43 Pulse 90 04/25/17 15:54 Resp 20 04/25/17 15:54 BP 152/93 H 04/25/17 15:54 Pulse Ox 95 04/25/17 15:54 Weight - Most Recent: 67.721 kg I&O - Last 24 Hours: Intake & Output 04/25/17 04/25/17 04/25/17 06:59 14:59 22:59 Intake Total 600 1505 Output Total 800 700 Balance -200 805 Lab Results Last 24 Hours: Laboratory Results - last 24 hr 04/25/17 04/25/17 Range/Units 06:04 06:04 WBC 13.06 H (3.98-10.04) K/mm3 RBC 4.31 (3.98-5.22) M/mm3 Hgb 12.4 (11.2-15.7) gm/L Hct 38.8 (34.1-44.9) % MCV 90.0 (79.4-94.8) fl MCH 28.8 (25.6-32.2) pg MCHC 32.0 L (32.2-35.5) g/dl RDW Std Deviation 48.2 H (36.4-46.3) fL Plt Count 258 (182-369) K/mm3 MPV 10.5 (9.4-12.3) fl Neut % (Auto) 90.0 H (34.0-71.1) % Lymph % (Auto) 7.7 L (19.3-51.7) % [place] % (Auto) 2.1 L (4.7-12.5) % Eos % (Auto) 0 L (0.7-5.8) Baso % (Auto) 0.0 L (0.1-1.2) % Neut # (Auto) 11.77 H (1.56-6.13) K/mm3 Lymph # (Auto) 1.00 L (1.18-3.74) K/mm3 [place] # (Auto) 0.27 (0.24-0.36) K/mm3 Eos # (Auto) 0.00 L (0.04-0.36) K/mm3 Baso # (Auto) 0.00 L (0.01-0.08) K/mm3 Manual Slide Review Normal smear Sodium 132 L (136-145) mEq/L Potassium 4.5 (3.5-5.1) mEq/L Chloride 95 L (98-107) mEq/L Carbon Dioxide 30 (21-32) mEq/L Anion Gap 11.5 (5-15) BUN 17 (7-18) mg/dL Creatinine 0.7 (0.55-1.02) mg/dL Est Cr Clr Drug Dosing 57.46 mL/min Estimated GFR (MDRD) > 60 (>60) mL/min BUN/Creatinine Ratio 24.3 H (14-18) Glucose 143 H (83-115) mg/dL Calcium 8.8 (8.5-10.1) mg/dL Magnesium 2.1 (1.8-2.4) mg/dl C-Reactive Protein < 0.2 (<1.0) mg/dL Med Orders - Current: Current Medications Acetaminophen (Tylenol) 650 mg PO Q4H PRN PRN Reason: Pain Last Admin: 04/25/17 16:42 Dose: 325 mg Albuterol (Proventil Neb Soln) 2.5 mg NEB Q2H PRN PRN Reason: SOB/Wheezing Albuterol/Ipratropium (Duoneb 3.0-0.5 Mg/3 Ml) 3 ml NEB Q6HRRT [facility] Last Admin: 04/25/17 15:35 Dose: 3 ml Aspirin (Halfprin) 81 mg PO DAILY [facility] Last Admin: 04/25/17 08:07 Dose: 81 mg Diltiazem HCl (Dilacor Xr) 240 mg PO DAILY [facility] Last Admin: 04/25/17 08:07 Dose: 240 mg Diltiazem HCl (Diltiazem) 20 mg IVPUSH Q4H PRN PRN Reason: HR >140bpm Last Admin: 04/23/17 17:49 Dose: 20 mg Docusate Sodium (Colace) 100 mg PO BID PRN PRN Reason: Constipation Famotidine (Pepcid) 20 mg PO BID [facility] Last Admin: 04/25/17 08:09 Dose: 20 mg Furosemide (Lasix) 20 mg PO DAILY [facility] Last Admin: 04/25/17 08:09 Dose: 20 mg Azithromycin 500 mg/ Sodium (Chloride) 250 mls @ 250 mls/hr IV Q24H [facility] Last Admin: 04/25/17 08:03 Dose: 250 mls/hr Ibuprofen (Motrin) 400 mg PO Q6H PRN PRN Reason: Pain (mild 1-3) Lorazepam (Ativan) 0.5 mg PO BID PRN PRN Reason: Anxiety Last Admin: 04/25/17 08:19 Dose: 0.5 mg Losartan Potassium (Cozaar) 25 mg PO DAILY [facility] Last Admin: 04/25/17 08:08 Dose: 25 mg Magnesium Hydroxide (Milk Of Magnesia) 30 ml PO Q12H PRN PRN Reason: Constipation Magnesium Oxide (Magnesium Oxide) 400 mg PO DAILY [facility] Last Admin: 04/25/17 08:09 Dose: 400 mg Methylprednisolone Sodium Succinate (Solu-Medrol) 40 mg IVPUSH Q12H [facility] Metoprolol Tartrate (Lopressor) 5 mg IVPUSH Q6H PRN PRN Reason: HR>120 Last Admin: 04/24/17 20:25 Dose: 5 mg Metoprolol Tartrate (Lopressor) 50 mg PO Q12HR [facility] Last Admin: 04/25/17 12:13 Dose: 50 mg Morphine Sulfate (Morphine) 2 mg IVPUSH Q2H PRN PRN Reason: pain/SOB Nicotine Polacrilex (Nicorelief) 2 mg BUCCAL DAILY PRN PRN Reason: Withdrawal Symptoms Ondansetron HCl (Zofran Odt) 4 mg PO Q4H PRN PRN Reason: Nausea/Vomiting Ondansetron HCl (Zofran) 4 mg IVPUSH Q6H PRN PRN Reason: Nausea Psyllium Husk (Metamucil Sugar Free) 1 packet PO DAILY [facility] Last Admin: 04/25/17 08:09 Dose: 1 packet Rivaroxaban (Xarelto) 20 mg PO DAILY [facility] Last Admin: 04/25/17 08:08 Dose: 20 mg Simvastatin (Zocor) 10 mg PO BEDTIME [facility] Last Admin: 04/24/17 19:59 Dose: 10 mg Sodium Chloride (Saline Flush) 10 ml FLUSH ASDIRECTED PRN PRN Reason: Keep Vein Open Last Admin: 04/23/17 03:53 Dose: 10 ml Tiotropium [place] (Spiriva Handihaler) 18 mcg INH DAILY [facility] Last Admin: 04/25/17 09:33 Dose: 1 cap Discontinued Medications Albuterol/Ipratropium (Duoneb 3.0-0.5 Mg/3 Ml) 3 ml NEB ONETIME ONE Stop: 04/23/17 03:41 Last Admin: 04/23/17 03:56 Dose: 3 ml Albuterol/Ipratropium (Duoneb 3.0-0.5 Mg/3 Ml) 3 ml NEB ONETIME ONE Stop: 04/23/17 05:23 Last Admin: 04/23/17 05:30 Dose: 3 ml Diltiazem HCl (Diltiazem) 20 mg IVPUSH ONETIME ONE Stop: 04/23/17 08:09 Last Admin: 04/23/17 08:52 Dose: 20 mg Sodium Chloride (Normal Saline) 1,000 mls @ 125 mls/hr IV ASDIRECTED [facility] Last Admin: 04/23/17 03:50 Dose: 125 mls/hr Sodium Chloride (Normal Saline) 1,000 mls @ 75 mls/hr IV ASDIRECTED [facility] Stop: 04/24/17 03:15 Last Admin: 04/23/17 13:55 Dose: 75 mls/hr Methylprednisolone Sodium Succinate (Solu-Medrol) 125 mg IVPUSH ONETIME ONE Stop: 04/23/17 03:41 Last Admin: 04/23/17 03:53 Dose: 125 mg Methylprednisolone Sodium Succinate (Solu-Medrol) 80 mg IVPUSH Q12H [facility] Last Admin: 04/25/17 08:03 Dose: 80 mg Metoprolol Succinate (Toprol Xl) 25 mg PO DAILY [facility] Last Admin: 04/23/17 09:01 Dose: 25 mg Metoprolol Succinate (Toprol Xl) 50 mg PO BEDTIME [facility] Last Admin: 04/24/17 20:08 Dose: Not Given Metoprolol Tartrate (Lopressor) 25 mg PO Q12HR [facility] Miscellaneous Information (Remove Patch) 1 ea TRDERM DAILY [facility] Morphine Sulfate (Morphine) 2 mg IVPUSH Q2H PRN PRN Reason: pain/SOB Nicotine (Habitrol) 21 mg TRDERM DAILY [facility] Last Admin: 04/23/17 09:04 Dose: Not Given Ondansetron HCl (Zofran) 4 mg IVPUSH ONETIME ONE Stop: 04/23/17 03:40 Last Admin: 04/23/17 03:51 Dose: 4 mg Ondansetron HCl (Zofran) Confirm Administered Dose 4 mg .ROUTE .STK-MED ONE Stop: 04/23/17 03:54 Last Admin: 04/23/17 03:55 Dose: Not Given - Exam Quality Assessment: Supplemental Oxygen, DVT Prophylaxis General: Alert, Oriented, Cooperative, No Acute Distress HEENT: Pupils Equal, Pupils Reactive, EOMI Neck: Supple, Trachea Midline, No JVD Lungs: Normal Respiratory Effort, Decreased Breath Sounds Cardiovascular: Regular Rate, Regular Rhythm GI/Abdominal Exam: Normal Bowel Sounds, Soft, Non-Tender, No Organomegaly, No Distention (Female) Exam: Deferred Back Exam: Normal Inspection Extremities: Normal Inspection, Normal Range of Motion, Non-Tender Skin: Warm Neurological: No New Focal Deficit, Normal Gait, Normal Speech Psy/Mental Status: Alert, Normal Affect, Normal Mood - Problem List Review Problem List Initiated/Reviewed/Updated: Yes - My Orders Last 24 Hours: My Active Orders 04/24/17 19:43 Metoprolol Tartrate [Lopressor] 5 mg IVPUSH Q6H PRN 04/25/17 11:33 Metoprolol Tartrate [Lopressor] 50 mg PO Q12HR 04/25/17 20:00 methylPREDNISolone Sod Succ [Solu-MEDROL] 40 mg IVPUSH Q12H - Plan Plan:: I/P: Acute COPD exacerbation with hypoxia -Hx of COPD, remote smoking hx -CXR unremarkable for acute findings in ED-Repeat CXR this morning unchanged by my review---await radilogist final interp. -Influenza negative, obtain resp viral panel, mycoplasma and strep pneumo antigen today---negative mycoplasma and flu, awaiting other results. -Supplemental oxygen to keep saturations >90% -Solumedrol--->prednisone -Zithromax for antiinflammatory -RT/Nebs/IS/FV Afib with RVR--rate controlled now at 100 or less. -Newly dx afib 2 weeks ago, was placed on cardizem then added toprol per PCP -Has had workup with echo (requested record) and stress test, both WNL per patient report---echo with 55-60% EF records rec'd and reviewed -Cont xarelto, cardizem---increased toprol dose to 50mg and changed to HS -PRN cardizem IVP for tachycardia- see orders -Obtained repeat EKG, confirms afib RVR rate 150's upon arrival to floor from ED---rates now 100 or less -Repeat troponin negative -Query sleep apnea- recommend sleep study after discharge/as outpatient Chronic: Anxiety- cont ativan PRN, ? reactive/situational depression with multiple losses in her life over the past 6 months---spiritual care consult. HTN- stable, cont home meds HLD- cont home meds Other: GI prophylax- pepcid DVT prophylax- cont xarelto [employer] consult- heart healthy diet/new onset afib Ambulate, watch HR RT Consult as above Daily labs Blood sugars mildly elevated--suspect from IV steroids, will check A1C-- 5.9 DC plan: likely DC in 1-2 days pending rate control and weaning from supplemental oxygen Patient is Full Code status PCP is Dr. Reid with [facility]
[2017-04-25] MEDS ORDERED: methylPREDNISolone Sodium Succinate 40 MG/1 ML SDV IVPUSH SCH (20:00)
[2017-04-25] MEDS: Simvastatin 10 MG Tab PO SCH (20:55)
[2017-04-26] MEDS: Albuterol/Ipratropium 3.0-0.5 MG/3 ML Neb Soln NEB SCH ×4 (03:50→20:56)
[2017-04-26] MEDS: Psyllium Husk Powder Sugar Free 3.4 GM Packet PO SCH (08:46)
[2017-04-26] MEDS: Magnesium Oxide 400 MG Tab PO SCH (08:46)
[2017-04-26] MEDS: predniSONE 20 MG Tab PO SCH (08:46)
[2017-04-26] MEDS: Losartan 25 MG Tab PO SCH (08:46)
[2017-04-26] MEDS: Rivaroxaban 10 MG Tab PO SCH (08:47)
[2017-04-26] MEDS: Famotidine 20 MG Tab PO SCH ×2 (08:47→20:09)
[2017-04-26] MEDS: Aspirin 81 MG Tab.EC PO SCH (08:47)
[2017-04-26] MEDS: Furosemide 20 MG Tab PO SCH (08:47)
[2017-04-26] MEDS: Metoprolol Tartrate 50 MG Tab PO SCH ×2 (08:47→20:08)
[2017-04-26] MEDS: Diltiazem 240 MG Cap.ER PO SCH (08:47)
[2017-04-26] MEDS: Azithromycin 500 MG in Sodium Chloride 0.9% 250 ML IV SCH (08:48)
[2017-04-26] MEDS: Tiotropium Inhaler 18 MCG Inhalation Powder Cap Kit of 5 INH SCH (10:24)
--- NOTE | 2017-04-26 15:51 | PCM.PN ---
- General Info Date of Service: 04/26/17 Functional Status: Reports: Tolerating Diet, Ambulating, Urinating - Review of Systems General: Reports: No Symptoms HEENT: Reports: No Symptoms Pulmonary: Reports: No Symptoms Cardiovascular: Reports: No Symptoms Gastrointestinal: Reports: No Symptoms Genitourinary: Reports: No Symptoms Musculoskeletal: Reports: No Symptoms Skin: Reports: No Symptoms Neurological: Reports: No Symptoms Psychiatric: Reports: No Symptoms - Patient Data Vitals - Most Recent: Last Vital Signs Temp 36.7 C 04/26/17 14:44 Pulse 91 04/26/17 14:44 Resp 24 H 04/26/17 14:44 BP 122/73 04/26/17 14:44 Pulse Ox 86 L 04/26/17 14:44 Weight - Most Recent: 67.903 kg I&O - Last 24 Hours: Intake & Output 04/26/17 04/26/17 04/26/17 06:59 14:59 22:59 Intake Total 300 650 Output Total 1600 Balance 300 -950 Lab Results Last 24 Hours: Laboratory Results - last 24 hr 04/26/17 04/26/17 Range/Units 06:03 06:03 WBC 11.53 H (3.98-10.04) K/mm3 RBC 4.28 (3.98-5.22) M/mm3 Hgb 12.3 (11.2-15.7) gm/L Hct 38.3 (34.1-44.9) % MCV 89.5 (79.4-94.8) fl MCH 28.7 (25.6-32.2) pg MCHC 32.1 L (32.2-35.5) g/dl RDW Std Deviation 48.2 H (36.4-46.3) fL Plt Count 256 (182-369) K/mm3 MPV 10.1 (9.4-12.3) fl Neut % (Auto) 89.2 H (34.0-71.1) % Lymph % (Auto) 8.2 L (19.3-51.7) % [place] % (Auto) 2.4 L (4.7-12.5) % Eos % (Auto) 0 L (0.7-5.8) Baso % (Auto) 0.0 L (0.1-1.2) % Neut # (Auto) 10.29 H (1.56-6.13) K/mm3 Lymph # (Auto) 0.94 L (1.18-3.74) K/mm3 [place] # (Auto) 0.28 (0.24-0.36) K/mm3 Eos # (Auto) 0.00 L (0.04-0.36) K/mm3 Baso # (Auto) 0.00 L (0.01-0.08) K/mm3 Manual Slide Review Normal smear Sodium 132 L (136-145) mEq/L Potassium 4.4 (3.5-5.1) mEq/L Chloride 94 L (98-107) mEq/L Carbon Dioxide 34 H (21-32) mEq/L Anion Gap 8.4 (5-15) BUN 17 (7-18) mg/dL Creatinine 0.8 (0.55-1.02) mg/dL Est Cr Clr Drug Dosing 50.27 mL/min Estimated GFR (MDRD) > 60 (>60) mL/min BUN/Creatinine Ratio 21.3 H (14-18) Glucose 135 H (83-115) mg/dL Calcium 8.7 (8.5-10.1) mg/dL Magnesium 2.3 (1.8-2.4) mg/dl C-Reactive Protein < 0.2 (<1.0) mg/dL Med Orders - Current: Current Medications Acetaminophen (Tylenol) 650 mg PO Q4H PRN PRN Reason: Pain Last Admin: 04/25/17 16:42 Dose: 325 mg Albuterol (Proventil Neb Soln) 2.5 mg NEB Q2H PRN PRN Reason: SOB/Wheezing Last Admin: 04/26/17 06:24 Dose: 2.5 mg Albuterol/Ipratropium (Duoneb 3.0-0.5 Mg/3 Ml) 3 ml NEB Q6HRRT [facility] Last Admin: 04/26/17 10:24 Dose: 3 ml Aspirin (Halfprin) 81 mg PO DAILY [facility] Last Admin: 04/26/17 08:47 Dose: 81 mg Diltiazem HCl (Dilacor Xr) 240 mg PO DAILY [facility] Last Admin: 04/26/17 08:47 Dose: 240 mg Diltiazem HCl (Diltiazem) 20 mg IVPUSH Q4H PRN PRN Reason: HR >140bpm Last Admin: 04/23/17 17:49 Dose: 20 mg Docusate Sodium (Colace) 100 mg PO BID PRN PRN Reason: Constipation Famotidine (Pepcid) 20 mg PO BID [facility] Last Admin: 04/26/17 08:47 Dose: 20 mg Furosemide (Lasix) 20 mg PO DAILY [facility] Last Admin: 04/26/17 08:47 Dose: 20 mg Azithromycin 500 mg/ Sodium (Chloride) 250 mls @ 250 mls/hr IV Q24H [facility] Last Admin: 04/26/17 08:48 Dose: 250 mls/hr Ibuprofen (Motrin) 400 mg PO Q6H PRN PRN Reason: Pain (mild 1-3) Lorazepam (Ativan) 0.5 mg PO BID PRN PRN Reason: Anxiety Last Admin: 04/25/17 22:41 Dose: 0.5 mg Losartan Potassium (Cozaar) 25 mg PO DAILY [facility] Last Admin: 04/26/17 08:46 Dose: 25 mg Magnesium Hydroxide (Milk Of Magnesia) 30 ml PO Q12H PRN PRN Reason: Constipation Magnesium Oxide (Magnesium Oxide) 400 mg PO DAILY [facility] Last Admin: 04/26/17 08:46 Dose: 400 mg Metoprolol Tartrate (Lopressor) 5 mg IVPUSH Q6H PRN PRN Reason: HR>120 Last Admin: 04/24/17 20:25 Dose: 5 mg Metoprolol Tartrate (Lopressor) 50 mg PO Q12HR [facility] Last Admin: 04/26/17 08:47 Dose: 50 mg Morphine Sulfate (Morphine) 2 mg IVPUSH Q2H PRN PRN Reason: pain/SOB Nicotine Polacrilex (Nicorelief) 2 mg BUCCAL DAILY PRN PRN Reason: Withdrawal Symptoms Ondansetron HCl (Zofran Odt) 4 mg PO Q4H PRN PRN Reason: Nausea/Vomiting Ondansetron HCl (Zofran) 4 mg IVPUSH Q6H PRN PRN Reason: Nausea Prednisone (Prednisone) 40 mg PO DAILY [facility] Stop: 04/28/17 09:01 Last Admin: 04/26/17 08:46 Dose: 40 mg Prednisone (Prednisone) 30 mg PO DAILY [facility] Stop: 05/01/17 09:01 Prednisone (Prednisone) 20 mg PO DAILY [facility] Stop: 05/04/17 09:01 Prednisone (Prednisone) 10 mg PO DAILY [facility] Stop: 05/07/17 09:01 Psyllium Husk (Metamucil Sugar Free) 1 packet PO DAILY [facility] Last Admin: 04/26/17 08:46 Dose: Not Given Rivaroxaban (Xarelto) 20 mg PO DAILY [facility] Last Admin: 04/26/17 08:47 Dose: 20 mg Simvastatin (Zocor) 10 mg PO BEDTIME [facility] Last Admin: 04/25/17 20:55 Dose: 10 mg Sodium Chloride (Saline Flush) 10 ml FLUSH ASDIRECTED PRN PRN Reason: Keep Vein Open Last Admin: 04/23/17 03:53 Dose: 10 ml Tiotropium [place] (Spiriva Handihaler) 18 mcg INH DAILY [facility] Last Admin: 04/26/17 10:24 Dose: 1 cap Discontinued Medications Albuterol/Ipratropium (Duoneb 3.0-0.5 Mg/3 Ml) 3 ml NEB ONETIME ONE Stop: 04/23/17 03:41 Last Admin: 04/23/17 03:56 Dose: 3 ml Albuterol/Ipratropium (Duoneb 3.0-0.5 Mg/3 Ml) 3 ml NEB ONETIME ONE Stop: 04/23/17 05:23 Last Admin: 04/23/17 05:30 Dose: 3 ml Diltiazem HCl (Diltiazem) 20 mg IVPUSH ONETIME ONE Stop: 04/23/17 08:09 Last Admin: 04/23/17 08:52 Dose: 20 mg Sodium Chloride (Normal Saline) 1,000 mls @ 125 mls/hr IV ASDIRECTED [facility] Last Admin: 04/23/17 03:50 Dose: 125 mls/hr Sodium Chloride (Normal Saline) 1,000 mls @ 75 mls/hr IV ASDIRECTED [facility] Stop: 04/24/17 03:15 Last Admin: 04/23/17 13:55 Dose: 75 mls/hr Methylprednisolone Sodium Succinate (Solu-Medrol) 125 mg IVPUSH ONETIME ONE Stop: 04/23/17 03:41 Last Admin: 04/23/17 03:53 Dose: 125 mg Methylprednisolone Sodium Succinate (Solu-Medrol) 80 mg IVPUSH Q12H [facility] Last Admin: 04/25/17 08:03 Dose: 80 mg Methylprednisolone Sodium Succinate (Solu-Medrol) 40 mg IVPUSH Q12H [facility] Stop: 04/25/17 20:01 Last Admin: 04/25/17 20:54 Dose: 40 mg Metoprolol Succinate (Toprol Xl) 25 mg PO DAILY [facility] Last Admin: 04/23/17 09:01 Dose: 25 mg Metoprolol Succinate (Toprol Xl) 50 mg PO BEDTIME [facility] Last Admin: 04/24/17 20:08 Dose: Not Given Metoprolol Tartrate (Lopressor) 25 mg PO Q12HR [facility] Miscellaneous Information (Remove Patch) 1 ea TRDERM DAILY [facility] Morphine Sulfate (Morphine) 2 mg IVPUSH Q2H PRN PRN Reason: pain/SOB Nicotine (Habitrol) 21 mg TRDERM DAILY [facility] Last Admin: 04/23/17 09:04 Dose: Not Given Ondansetron HCl (Zofran) 4 mg IVPUSH ONETIME ONE Stop: 04/23/17 03:40 Last Admin: 04/23/17 03:51 Dose: 4 mg Ondansetron HCl (Zofran) Confirm Administered Dose 4 mg .ROUTE .STK-MED ONE Stop: 04/23/17 03:54 Last Admin: 04/23/17 03:55 Dose: Not Given - Exam Quality Assessment: Supplemental Oxygen, DVT Prophylaxis General: Alert, Oriented, Cooperative, No Acute Distress HEENT: Pupils Equal, Pupils Reactive, EOMI Neck: Trachea Midline, No JVD Lungs: Normal Respiratory Effort Cardiovascular: Regular Rate, Regular Rhythm GI/Abdominal Exam: Normal Bowel Sounds, Soft, Non-Tender, No Organomegaly, No Distention (Female) Exam: Deferred Back Exam: Normal Inspection Extremities: Normal Inspection Skin: Warm Neurological: No New Focal Deficit Psy/Mental Status: Alert, Normal Affect, Normal Mood - Problem List Review Problem List Initiated/Reviewed/Updated: Yes - My Orders Last 24 Hours: My Active Orders 04/26/17 09:00 predniSONE 40 mg PO DAILY 04/29/17 09:00 predniSONE 30 mg PO DAILY 05/02/17 09:00 predniSONE 20 mg PO DAILY 05/05/17 09:00 predniSONE 10 mg PO DAILY - Plan Plan:: I/P: Acute COPD exacerbation with hypoxia (clarify O2 need pre DC) -Hx of COPD, remote smoking hx -CXR unremarkable for acute findings in ED-Repeat CXR this morning unchanged by my review---await radilogist final interp. -Influenza negative, obtain resp viral panel, mycoplasma and strep pneumo antigen today---negative mycoplasma and flu, awaiting other results. -Supplemental oxygen to keep saturations >90% -Solumedrol--->prednisone taper -Zithromax for antiinflammatory -RT/Nebs/IS/FV Afib with RVR--rate controlled now at 100 or less. -Newly dx afib 2 weeks ago, was placed on cardizem then added toprol per PCP -Has had workup with echo (requested record) and stress test, both WNL per patient report---echo with 55-60% EF records rec'd and reviewed -Cont xarelto, cardizem---increased toprol dose to 50mg and changed to HS -PRN cardizem IVP for tachycardia- see orders -Obtained repeat EKG, confirms afib RVR rate 150's upon arrival to floor from ED---rates now 100 or less -Repeat troponin negative -Query sleep apnea- recommend sleep study after discharge/as outpatient Chronic: Anxiety- cont ativan PRN, ? reactive/situational depression with multiple losses in her life over the past 6 months---spiritual care consult. HTN- stable, cont home meds HLD- cont home meds Other: GI prophylax- pepcid DVT prophylax- cont xarelto [employer] consult- heart healthy diet/new onset afib Ambulate, watch HR RT Consult as above Daily labs Blood sugars mildly elevated--suspect from IV steroids, will check A1C-- 5.9 DC plan: likely DC in 1-2 days pending rate control and weaning from supplemental oxygen; LOS>96 hours as COPD/A Fib needs are addressed. Patient is Full Code status PCP is Dr. Reid with [facility]
[2017-04-26] MEDS: LORazepam 1 MG Tab PO PRN (16:31)
[2017-04-26] MEDS: Simvastatin 10 MG Tab PO SCH (20:09)
[2017-04-27] MEDS: LORazepam 1 MG Tab PO PRN (03:04)
[2017-04-27] MEDS: Albuterol/Ipratropium 3.0-0.5 MG/3 ML Neb Soln NEB SCH ×2 (03:16→08:52)
[2017-04-27] MEDS: Rivaroxaban 10 MG Tab PO SCH (08:41)
[2017-04-27] MEDS: Diltiazem 240 MG Cap.ER PO SCH (08:41)
[2017-04-27] MEDS: predniSONE 20 MG Tab PO SCH (08:41)
[2017-04-27] MEDS: Famotidine 20 MG Tab PO SCH (08:41)
[2017-04-27] MEDS: Azithromycin 500 MG in Sodium Chloride 0.9% 250 ML IV SCH (08:41)
[2017-04-27] MEDS: Magnesium Oxide 400 MG Tab PO SCH (08:41)
[2017-04-27] MEDS: Furosemide 20 MG Tab PO SCH (08:41)
[2017-04-27] MEDS: Aspirin 81 MG Tab.EC PO SCH (08:42)
[2017-04-27] MEDS: Losartan 25 MG Tab PO SCH (08:42)
[2017-04-27] MEDS: Metoprolol Tartrate 50 MG Tab PO SCH (08:48)
[2017-04-27] MEDS: Psyllium Husk Powder Sugar Free 3.4 GM Packet PO SCH (08:50)
[2017-04-27] MEDS: Tiotropium Inhaler 18 MCG Inhalation Powder Cap Kit of 5 INH SCH (08:53)
[2017-04-27] MEDS ORDERED: Furosemide 40 MG/4 ML VIAL IVPUSH ONE (09:00)
[2017-04-27] MEDS ORDERED: Benzocaine/Cetylpyridinium/Menthol Lozenge MUCMEM PRN (09:01)
--- NOTE | 2017-04-27 09:04 | PCM.PN ---
- General Info Date of Service: 04/27/17 Admission Dx/Problem (Free Text): Admission Diagnosis/Problem Admission Diagnosis/Problem COPD, Moderate chronic obstructive pulmonary disease Functional Status: Reports: Pain Controlled, Tolerating Diet, Ambulating, Urinating, Incentive Spirometry - Review of Systems General: Denies: Weakness, Fatigue HEENT: Reports: No Symptoms Pulmonary: Reports: Shortness of Breath, Cough, Sputum Cardiovascular: Reports: No Symptoms. Denies: Chest Pain, Palpitations, Dyspnea on Exertion Gastrointestinal: Reports: No Symptoms Genitourinary: Reports: No Symptoms Neurological: Reports: No Symptoms Psychiatric: Reports: Anxiety - Patient Data Vitals - Most Recent: Last Vital Signs Temp 98.1 F 04/27/17 05:21 Pulse 97 04/27/17 08:48 Resp 14 04/27/17 05:21 BP 179/92 H 04/27/17 08:48 Pulse Ox 93 L 04/27/17 08:53 Weight - Most Recent: 150 lb 8 oz I&O - Last 24 Hours: Intake & Output 04/26/17 04/27/17 04/27/17 22:59 06:59 14:59 Intake Total 890 400 Output Total 1600 400 Balance -710 0 Lab Results Last 24 Hours: Laboratory Results - last 24 hr 04/27/17 04/27/17 Range/Units 06:50 06:50 WBC 14.01 H (3.98-10.04) K/mm3 RBC 4.40 (3.98-5.22) M/mm3 Hgb 12.6 (11.2-15.7) gm/L Hct 38.7 (34.1-44.9) % MCV 88.0 (79.4-94.8) fl MCH 28.6 (25.6-32.2) pg MCHC 32.6 (32.2-35.5) g/dl RDW Std Deviation 46.9 H (36.4-46.3) fL Plt Count 254 (182-369) K/mm3 MPV 10.0 (9.4-12.3) fl Neut % (Auto) 75.4 H (34.0-71.1) % Lymph % (Auto) 16.6 L (19.3-51.7) % [place] % (Auto) 7.8 (4.7-12.5) % Eos % (Auto) 0 L (0.7-5.8) Baso % (Auto) 0.0 L (0.1-1.2) % Neut # (Auto) 10.57 H (1.56-6.13) K/mm3 Lymph # (Auto) 2.32 (1.18-3.74) K/mm3 [place] # (Auto) 1.09 H (0.24-0.36) K/mm3 Eos # (Auto) 0.00 L (0.04-0.36) K/mm3 Baso # (Auto) 0.00 L (0.01-0.08) K/mm3 Sodium 133 L (136-145) mEq/L Potassium 3.7 (3.5-5.1) mEq/L Chloride 94 L (98-107) mEq/L Carbon Dioxide 33 H (21-32) mEq/L Anion Gap 9.7 (5-15) BUN 21 H (7-18) mg/dL Creatinine 0.9 (0.55-1.02) mg/dL Est Cr Clr Drug Dosing 44.69 mL/min Estimated GFR (MDRD) > 60 (>60) mL/min BUN/Creatinine Ratio 23.3 H (14-18) Glucose 103 (83-115) mg/dL Calcium 8.3 L (8.5-10.1) mg/dL Magnesium 2.3 (1.8-2.4) mg/dl C-Reactive Protein < 0.2 (<1.0) mg/dL Med Orders - Current: Current Medications Acetaminophen (Tylenol) 650 mg PO Q4H PRN PRN Reason: Pain Last Admin: 04/25/17 16:42 Dose: 325 mg Albuterol (Proventil Neb Soln) 2.5 mg NEB Q2H PRN PRN Reason: SOB/Wheezing Last Admin: 04/26/17 06:24 Dose: 2.5 mg Albuterol/Ipratropium (Duoneb 3.0-0.5 Mg/3 Ml) 3 ml NEB Q6HRRT [facility] Last Admin: 04/27/17 08:52 Dose: 3 ml Aspirin (Halfprin) 81 mg PO DAILY [facility] Last Admin: 04/27/17 08:42 Dose: 81 mg Diltiazem HCl (Dilacor Xr) 240 mg PO DAILY [facility] Last Admin: 04/27/17 08:41 Dose: 240 mg Diltiazem HCl (Diltiazem) 20 mg IVPUSH Q4H PRN PRN Reason: HR >140bpm Last Admin: 04/23/17 17:49 Dose: 20 mg Docusate Sodium (Colace) 100 mg PO BID PRN PRN Reason: Constipation Famotidine (Pepcid) 20 mg PO BID [facility] Last Admin: 04/27/17 08:41 Dose: 20 mg Furosemide (Lasix) 20 mg PO DAILY [facility] Last Admin: 04/27/17 08:41 Dose: 20 mg Furosemide (Lasix) 40 mg IVPUSH NOW ONE Stop: 04/27/17 09:01 Guaifenesin (Mucinex) 1,200 mg PO BID [facility] Azithromycin 500 mg/ Sodium (Chloride) 250 mls @ 250 mls/hr IV Q24H [facility] Last Admin: 04/27/17 08:41 Dose: 250 mls/hr Ibuprofen (Motrin) 400 mg PO Q6H PRN PRN Reason: Pain (mild 1-3) Lorazepam (Ativan) 0.5 mg PO BID PRN PRN Reason: Anxiety Last Admin: 04/27/17 03:04 Dose: 0.5 mg Losartan Potassium (Cozaar) 25 mg PO DAILY [facility] Last Admin: 04/27/17 08:42 Dose: 25 mg Magnesium Hydroxide (Milk Of Magnesia) 30 ml PO Q12H PRN PRN Reason: Constipation Magnesium Oxide (Magnesium Oxide) 400 mg PO DAILY [facility] Last Admin: 04/27/17 08:41 Dose: 400 mg Metoprolol Tartrate (Lopressor) 5 mg IVPUSH Q6H PRN PRN Reason: HR>120 Last Admin: 04/24/17 20:25 Dose: 5 mg Metoprolol Tartrate (Lopressor) 50 mg PO Q12HR [facility] Last Admin: 04/27/17 08:48 Dose: 50 mg Morphine Sulfate (Morphine) 2 mg IVPUSH Q2H PRN PRN Reason: pain/SOB Nicotine Polacrilex (Nicorelief) 2 mg BUCCAL DAILY PRN PRN Reason: Withdrawal Symptoms Ondansetron HCl (Zofran Odt) 4 mg PO Q4H PRN PRN Reason: Nausea/Vomiting Ondansetron HCl (Zofran) 4 mg IVPUSH Q6H PRN PRN Reason: Nausea Prednisone (Prednisone) 40 mg PO DAILY [facility] Stop: 04/28/17 09:01 Last Admin: 04/27/17 08:41 Dose: 40 mg Prednisone (Prednisone) 30 mg PO DAILY [facility] Stop: 05/01/17 09:01 Prednisone (Prednisone) 20 mg PO DAILY [facility] Stop: 05/04/17 09:01 Prednisone (Prednisone) 10 mg PO DAILY [facility] Stop: 05/07/17 09:01 Psyllium Husk (Metamucil Sugar Free) 1 packet PO DAILY [facility] Last Admin: 04/27/17 08:50 Dose: Not Given Rivaroxaban (Xarelto) 20 mg PO DAILY [facility] Last Admin: 04/27/17 08:41 Dose: 20 mg Simvastatin (Zocor) 10 mg PO BEDTIME [facility] Last Admin: 04/26/17 20:09 Dose: 10 mg Sodium Chloride (Saline Flush) 10 ml FLUSH ASDIRECTED PRN PRN Reason: Keep Vein Open Last Admin: 04/23/17 03:53 Dose: 10 ml Tiotropium [place] (Spiriva Handihaler) 18 mcg INH DAILY [facility] Last Admin: 04/27/17 08:53 Dose: 1 cap Discontinued Medications Albuterol/Ipratropium (Duoneb 3.0-0.5 Mg/3 Ml) 3 ml NEB ONETIME ONE Stop: 04/23/17 03:41 Last Admin: 04/23/17 03:56 Dose: 3 ml Albuterol/Ipratropium (Duoneb 3.0-0.5 Mg/3 Ml) 3 ml NEB ONETIME ONE Stop: 04/23/17 05:23 Last Admin: 04/23/17 05:30 Dose: 3 ml Diltiazem HCl (Diltiazem) 20 mg IVPUSH ONETIME ONE Stop: 04/23/17 08:09 Last Admin: 04/23/17 08:52 Dose: 20 mg Sodium Chloride (Normal Saline) 1,000 mls @ 125 mls/hr IV ASDIRECTED [facility] Last Admin: 04/23/17 03:50 Dose: 125 mls/hr Sodium Chloride (Normal Saline) 1,000 mls @ 75 mls/hr IV ASDIRECTED [facility] Stop: 04/24/17 03:15 Last Admin: 04/23/17 13:55 Dose: 75 mls/hr Methylprednisolone Sodium Succinate (Solu-Medrol) 125 mg IVPUSH ONETIME ONE Stop: 04/23/17 03:41 Last Admin: 04/23/17 03:53 Dose: 125 mg Methylprednisolone Sodium Succinate (Solu-Medrol) 80 mg IVPUSH Q12H [facility] Last Admin: 04/25/17 08:03 Dose: 80 mg Methylprednisolone Sodium Succinate (Solu-Medrol) 40 mg IVPUSH Q12H [facility] Stop: 04/25/17 20:01 Last Admin: 04/25/17 20:54 Dose: 40 mg Metoprolol Succinate (Toprol Xl) 25 mg PO DAILY [facility] Last Admin: 04/23/17 09:01 Dose: 25 mg Metoprolol Succinate (Toprol Xl) 50 mg PO BEDTIME [facility] Last Admin: 04/24/17 20:08 Dose: Not Given Metoprolol Tartrate (Lopressor) 25 mg PO Q12HR [facility] Miscellaneous Information (Remove Patch) 1 ea TRDERM DAILY [facility] Morphine Sulfate (Morphine) 2 mg IVPUSH Q2H PRN PRN Reason: pain/SOB Nicotine (Habitrol) 21 mg TRDERM DAILY [facility] Last Admin: 04/23/17 09:04 Dose: Not Given Ondansetron HCl (Zofran) 4 mg IVPUSH ONETIME ONE Stop: 04/23/17 03:40 Last Admin: 04/23/17 03:51 Dose: 4 mg Ondansetron HCl (Zofran) Confirm Administered Dose 4 mg .ROUTE .STK-MED ONE Stop: 04/23/17 03:54 Last Admin: 04/23/17 03:55 Dose: Not Given - Exam Quality Assessment: Supplemental Oxygen, DVT Prophylaxis General: Alert, Oriented, Cooperative, No Acute Distress HEENT: Pupils Equal, EOMI, Mucous Membr. Moist/[place] Neck: Supple Lungs: Normal Respiratory Effort, Decreased Breath Sounds, Wheezing Cardiovascular: Irregular Rhythm GI/Abdominal Exam: Normal Bowel Sounds, Soft, Non-Tender (Female) Exam: Deferred Extremities: Normal Capillary Refill, Pedal Edema (trace to 1+ to LE bilat ) Peripheral Pulses: 2+: Dorsalis Pedis (L), Dorsalis Pedis (R) Neurological: No New Focal Deficit Psy/Mental Status: Alert, Normal Mood, Anxious - Problem List & Annotations (1) Atrial fibrillation with RVR SNOMED Code(s): 867940170151457 Code(s): I48.91 - UNSPECIFIED ATRIAL FIBRILLATION Status: Acute Priority : High Current Visit: Yes (2) COPD exacerbation SNOMED Code(s): 217943837 Code(s): J44.1 - CHRONIC OBSTRUCTIVE PULMONARY DISEASE W (ACUTE) EXACERBATION Status: Acute Priority: High Current Visit: Yes (3) Elevated brain natriuretic peptide (BNP) level SNOMED Code(s): 096112695 Code(s): R79.89 - OTHER SPECIFIED ABNORMAL FINDINGS OF BLOOD CHEMISTRY Status: Acute Priority: High Current Visit: Yes (4) Hypoxia SNOMED Code(s): 826140730 Code(s): R09.02 - HYPOXEMIA Status: Acute Priority: High Current Visit : Yes - Problem List Review Problem List Initiated/Reviewed/Updated: Yes - My Orders Last 24 Hours: My Active Orders 04/27/17 09:00 Furosemide [Lasix] 40 mg IVPUSH NOW ONE 04/27/17 09:01 Benzocaine/Cetylpyrd/Menthol [Cepacol Sore Throat] 1 lozenge MUCMEM Q4HR PRN 04/27/17 09:15 guaiFENesin [Mucinex] 1,200 mg PO BID - Plan Plan:: I/P: Acute COPD exacerbation with hypoxia (clarify O2 need pre DC) -Hx of COPD, remote smoking hx -CXR unremarkable for acute findings in ED-Repeat CXR this morning unchanged by my review---await radilogist final interp. -Influenza negative, obtain resp viral panel, mycoplasma and strep pneumo antigen today---negative mycoplasma and flu, awaiting other results. -Supplemental oxygen to keep saturations >90% -Solumedrol--->prednisone taper -Zithromax for antiinflammatory -RT/Nebs/IS/FV Afib with RVR--rate controlled now at 100 or less. -Newly dx afib 2 weeks ago, was placed on cardizem then added toprol per PCP -Has had workup with echo (requested record) and stress test, both WNL per patient report---echo with 55-60% EF records rec'd and reviewed -Cont xarelto, cardizem---increased toprol dose to 50mg and changed to HS -PRN cardizem IVP for tachycardia- see orders -Obtained repeat EKG, confirms afib RVR rate 150's upon arrival to floor from ED---rates now 100 or less -Repeat troponin negative -Query sleep apnea- recommend sleep study after discharge/as outpatient Chronic: Anxiety- cont ativan PRN, ? reactive/situational depression with multiple losses in her life over the past 6 months---spiritual care consult. 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 Patient is Full Code status PCP is Dr. Reid with [facility]
[2017-04-27] MEDS ORDERED: guaiFENesin 600 MG Tab.ER PO SCH (09:15)
[2017-04-27] MEDS ORDERED: Citalopram 10 MG Tab PO SCH (11:30)
--- NOTE | 2017-04-27 11:46 | PCM.DCSUM1 ---
Discharge Summary - Hospital Course Free Text/Narrative:: Sade is a pleasant, talkative 71yo female admitted early this morning with COPD exacerbation and hypoxia- oxygen saturations at 79% on RA, atrial fibrillation newly diagnosed 2 weeks ago now in RVR. She presented to ED last night with SOB on exertion while at [employer]. She was unable to catch her breath and felt racing heart beats. Denied any c/o CP or dizziness at that time just unable to catch her breath. She gives me a history of not feeling right since early February after a "bad cold". She went into her PCP, Dr. Reid around 3 weeks after developing cough and congestion, was placed on abx, then on "prednisone". Since that time she has not felt good. She also developed RUQ abdominal pain, was found to have gallstones. In preparation for cholecystectomy, EKG was performed and she was found to be in new onset afib , this was around 2 weeks ago. She was started on cardizem then toprol was added for further rate control. She had echocardiogram and stress testing evaluation both which patient states were "normal". Echo results have been requested for review. PMH includes COPD (quit smoking 8 years ago), Hx of AMI at age 49 (angiogram but no intervention or stenting per patient report), HTN, HLD, hemorrhoids, gallstones, anxiety. Patient is Full Code status. PCP is Dr. Reid with [facility] in [place]. - Discharge Data Discharge Date: 04/27/17 (admit date 04/23/17) Discharge Disposition: Home, Self-Care 01 Condition: Good - Discharge Diagnosis/Problem(s) (1) Atrial fibrillation with RVR SNOMED Code(s): 062471728748930 ICD Code: I48.91 - UNSPECIFIED ATRIAL FIBRILLATION Status: Resolved Priority: High Current Visit: Yes (2) COPD exacerbation SNOMED Code(s): 717681375 ICD Code: J44.1 - CHRONIC OBSTRUCTIVE PULMONARY DISEASE W (ACUTE) EXACERBATION Status: Acute Priority: High Current Visit: Yes (3) Elevated brain natriuretic peptide (BNP) level SNOMED Code(s): 404718231 ICD Code: R79.89 - OTHER SPECIFIED ABNORMAL FINDINGS OF BLOOD CHEMISTRY Status: Acute Priority: High Current Visit: Yes (4) Hypoxia SNOMED Code(s): 704980755 ICD Code: R09.02 - HYPOXEMIA Status: Acute Priority: High Current Visit : Yes (5) Anxiety and depression SNOMED Code(s): 591553455 ICD Code: F41.8 - OTHER SPECIFIED ANXIETY DISORDERS Status: Chronic Priority: Medium Current Visit: Yes - Patient Summary/Data Operative Procedure(s) Performed: None Complications: None Consults: Consultations 04/23/17 13:16 Consult to Faculty Research Assistant [CONS] Routine 04/23/17 13:52 Consult to Spiritual Care [CONS] Routine 04/27/17 11:22 Consult to Pulmonary Rehabilitation [CONS] Routine Labs Pending at D/C: None Recommended Follow-up Testing/Procedures: Referral to Outpatient to Pulmonary Rehabilitation Home oxygen at 1-2L/NC Ambulate 3 times daily Follow up with Cardiology as scheduled next week Follow up with Dr. Reid, PCP within 5-7 days -COPD exacerbation, A-Fib with RVR- medications adjusted -Started Citalopram for anxiety/depression also Consider Pulmonology Consult Planned Operative Procedure(s) after DC: None Hospital Course: I/P: Acute COPD exacerbation with hypoxia ---Will need home O2 at discharge -Hx of COPD, remote smoking hx -CXR unremarkable for acute findings in ED-Repeat CXR unchanged and without acute findings. -Influenza, resp viral panel, mycoplasma and s.pneumo all negative. -Supplemental oxygen to keep saturations >90% -Solumedrol--->prednisone taper- PO on DC -Zithromax for antiinflammatory--completed 5 day course during hospital stay -RT/Nebs/IS/FV Afib with RVR--rate controlled now at 100 or less. -Newly dx afib 2 weeks ago, was placed on cardizem then added toprol per PCP -Has had workup with echo (requested record) and stress test, both WNL per patient report---echo with 55-60% EF records rec'd and reviewed -Cont xarelto, cardizem---increased metoprolol to 50mg BID now with rate controlled -PRN cardizem IVP for tachycardia- see orders -Obtained repeat EKG, confirms afib RVR rate 150's upon arrival to floor from ED---rates now 100 or less -Repeat troponin negative -Query sleep apnea- recommend sleep study after discharge/as outpatient Chronic: Anxiety- cont ativan PRN, ? reactive/situational depression with multiple losses in her life over the past 6 months---spiritual care consult. Did start on citalopram will recommend recheck at hospital follow up HTN- stable, cont home meds HLD- cont home meds Other: GI prophylax- pepcid DVT prophylax- cont xarelto Faculty Research Assistant consult- heart healthy diet/new onset afib Ambulate, watch HR RT Consult as above Daily labs Blood sugars mildly elevated--suspect from IV steroids, will check A1C-- 5.9 DC plan: likely DC in 1-2 days pending rate control and weaning from supplemental oxygen; LOS>96 hours as COPD/A Fib needs are addressed. Patient is Full Code status PCP is Dr. Reid with [facility] - Patient Instructions Diet: Heart Healthy Diet Activity: As Tolerated Showering/Bathing: May Shower Notify Provider of: Fever, Increased Pain, Swelling and Redness, Nausea and/or Vomiting - Discharge Plan Prescriptions/Med Rec: Metoprolol Tartrate [Lopressor] 50 mg PO Q12HR #60 tablet Albuterol [IJD: Albuterol] 2.5 mg NEB Q2H PRN #1 box PRN Reason: SOB/Wheezing Albuterol/Ipratropium [DuoNeb 3.0-0.5 MG/3 ML] 3 ml NEB QID #1 box Famotidine [Pepcid] 20 mg PO DAILY #30 tablet guaiFENesin [Mucinex] 1,200 mg PO BID #60 tab.er LORazepam [Ativan] 0.5 mg PO TID PRN #60 tablet PRN Reason: Anxiety Magnesium Oxide 400 mg PO DAILY #30 tablet Prednisone [IJD: predniSONE] 20 mg PO DAILY #3 tablet predniSONE 10 mg PO DAILY #3 tablet Home Medications: Home Meds Albuterol [Ventolin HFA] 2 puff INH Q4HR PRN 04/23/17 [History] Aspirin [Low Dose Aspirin EC] 81 mg PO DAILY 04/23/17 [History] B2/Vit A,C & E/Lut/Zeaxanth/Mn [Icaps] 2 tab PO DAILY 04/23/17 [History] Diltiazem HCl [Diltiazem 24Hr ER] 240 mg PO DAILY 04/23/17 [History] LORazepam 0.5 mg PO BID PRN 04/23/17 [History] Nicotine Polacrilex [Nicotine Lozenge] 2 mg BUCCAL DAILY PRN 04/23/17 [History] [place]-3 Fatty Acids/Fish Oil [Fish Oil 1,200 mg Softgel] 1 cap PO DAILY [History] Pravastatin Sodium 20 mg PO DAILY 04/23/17 [History] Psyllium Husk [Psyllium Fiber] 1 cap PO DAILY 04/23/17 [History] Rivaroxaban [Xarelto] 20 mg PO DAILY 04/23/17 [History] Tiotropium [Spiriva Handihaler] 1 cap INH DAILY 04/23/17 [History] Valsartan 40 mg PO DAILY 04/23/17 [History] Albuterol [IJD: Albuterol] 2.5 mg NEB Q2H PRN #1 box 04/27/17 [Rx] Albuterol/Ipratropium [DuoNeb 3.0-0.5 MG/3 ML] 3 ml NEB QID #1 box 04/27/17 [Rx] Famotidine [Pepcid] 20 mg PO DAILY #30 tablet 04/27/17 [Rx] LORazepam [Ativan] 0.5 mg PO TID PRN #60 tablet 04/27/17 [Rx] Magnesium Oxide 400 mg PO DAILY #30 tablet 04/27/17 [Rx] Metoprolol Tartrate [Lopressor] 50 mg PO Q12HR #60 tablet 04/27/17 [Rx] Prednisone [IJD: predniSONE] 20 mg PO DAILY #3 tablet 04/27/17 [Rx] guaiFENesin [Mucinex] 1,200 mg PO BID #60 tab.er 04/27/17 [Rx] predniSONE 10 mg PO DAILY #3 tablet 04/27/17 [Rx] Patient Handouts: Chronic Obstructive Pulmonary Disease, Rivaroxaban oral tablets, Panic Attacks, [id number], Atrial Fibrillation, [id number] Referrals: Alfa Reid MD [Primary Care Provider] - - Discharge Summary/Plan Comment DC Time >30 min.: Yes (40min) - General Info Date of Service: 04/27/17 Admission Dx/Problem (Free Text: Admission Diagnosis/Problem Admission Diagnosis/Problem COPD, Moderate chronic obstructive pulmonary disease Doing well, breathing easier. Did have "panic attack" this morning as she couldn 't get mucous plug up while doing FV- will add mucinex. Was off of supplemental O2 for a period last night but back on this am as saturations in the mid 80's. Is anxious and ready for DC home today with home oxygen. Feels anxious at times. Discussed adding daily antianxiety/antidepressant and she is in agreement to this- will start Lexapro once daily. She has edema to LE that is bothering her/causing increased anxiety. She is on lasix 20mg here- increase to 40mg today only. She is concerned about discharge on diuretic. Recommend cont x 1 wk and f/up with PCP to determine if needs diuretic daily or can be dc'd. She will be dc'd on prednisone also. Is in agreement to Pulmonary Rehab as outpatient, is not fond of idea of seeing Pulmonology- will defer to PCP for now. Functional Status: Reports: Pain Controlled, Tolerating Diet, Ambulating, Urinating, Incentive Spirometry. Denies: New Symptoms - Review of Systems General: Reports: No Symptoms. Denies: Weakness (resolved), Fatigue (resolved) HEENT: Reports: No Symptoms Pulmonary: Reports: Shortness of Breath (improved), Cough (improved), Sputum ( unable to cough up), Wheezing Cardiovascular: Reports: No Symptoms. Denies: Chest Pain, Palpitations Gastrointestinal: Reports: No Symptoms Genitourinary: Reports: No Symptoms Neurological: Reports: No Symptoms Psychiatric: Reports: No Symptoms - Patient Data Vitals - Most Recent: Last Vital Signs Temp 97.7 F 04/27/17 08:45 Pulse 97 04/27/17 08:48 Resp 20 04/27/17 08:45 BP 119/62 04/27/17 09:00 Pulse Ox 93 L 04/27/17 08:53 Weight - Most Recent: 150 lb 8 oz I&O - Last 24 hours: Intake & Output 04/26/17 04/27/17 04/27/17 22:59 06:59 14:59 Intake Total 890 400 180 Output Total 1600 400 Balance -710 0 180 Lab Results - Last 24 hrs: Laboratory Results - last 24 hr 04/27/17 04/27/17 04/27/17 Range/Units 06:50 06:50 06:50 WBC 14.01 H (3.98-10.04) K/mm3 RBC 4.40 (3.98-5.22) M/mm3 Hgb 12.6 (11.2-15.7) gm/L Hct 38.7 (34.1-44.9) % MCV 88.0 (79.4-94.8) fl MCH 28.6 (25.6-32.2) pg MCHC 32.6 (32.2-35.5) g/dl RDW Std Deviation 46.9 H (36.4-46.3) fL Plt Count 254 (182-369) K/mm3 MPV 10.0 (9.4-12.3) fl Neut % (Auto) 75.4 H (34.0-71.1) % Lymph % (Auto) 16.6 L (19.3-51.7) % [place] % (Auto) 7.8 (4.7-12.5) % Eos % (Auto) 0 L (0.7-5.8) Baso % (Auto) 0.0 L (0.1-1.2) % Neut # (Auto) 10.57 H (1.56-6.13) K/mm3 Lymph # (Auto) 2.32 (1.18-3.74) K/mm3 [place] # (Auto) 1.09 H (0.24-0.36) K/mm3 Eos # (Auto) 0.00 L (0.04-0.36) K/mm3 Baso # (Auto) 0.00 L (0.01-0.08) K/mm3 Sodium 133 L (136-145) mEq/L Potassium 3.7 (3.5-5.1) mEq/L Chloride 94 L (98-107) mEq/L Carbon Dioxide 33 H (21-32) mEq/L Anion Gap 9.7 (5-15) BUN 21 H (7-18) mg/dL Creatinine 0.9 (0.55-1.02) mg/dL Est Cr Clr Drug Dosing 44.69 mL/min Estimated GFR (MDRD) > 60 (>60) mL/min BUN/Creatinine Ratio 23.3 H (14-18) Glucose 103 (83-115) mg/dL Calcium 8.3 L (8.5-10.1) mg/dL Magnesium 2.3 (1.8-2.4) mg/dl C-Reactive Protein < 0.2 (<1.0) mg/dL NT-Pro-B Natriuret Pep 3128 H (0-125) pg/mL Med Orders - Current: Current Medications Acetaminophen (Tylenol) 650 mg PO Q4H PRN PRN Reason: Pain Last Admin: 04/25/17 16:42 Dose: 325 mg Albuterol (Proventil Neb Soln) 2.5 mg NEB Q2H PRN PRN Reason: SOB/Wheezing Last Admin: 04/26/17 06:24 Dose: 2.5 mg Albuterol/Ipratropium (Duoneb 3.0-0.5 Mg/3 Ml) 3 ml NEB Q6HRRT [facility] Last Admin: 04/27/17 08:52 Dose: 3 ml Aspirin (Halfprin) 81 mg PO DAILY [facility] Last Admin: 04/27/17 08:42 Dose: 81 mg Benzocaine/Menthol (Cepacol Sore Throat) 1 lozenge MUCMEM Q4H PRN PRN Reason: Sore Throat Last Admin: 04/27/17 09:25 Dose: 1 lozenge Citalopram Hydrobromide (Celexa) 10 mg PO DAILY [facility] Diltiazem HCl (Dilacor Xr) 240 mg PO DAILY [facility] Last Admin: 04/27/17 08:41 Dose: 240 mg Diltiazem HCl (Diltiazem) 20 mg IVPUSH Q4H PRN PRN Reason: HR >140bpm Last Admin: 04/23/17 17:49 Dose: 20 mg Docusate Sodium (Colace) 100 mg PO BID PRN PRN Reason: Constipation Famotidine (Pepcid) 20 mg PO BID [facility] Last Admin: 04/27/17 08:41 Dose: 20 mg Furosemide (Lasix) 20 mg PO DAILY [facility] Last Admin: 04/27/17 08:41 Dose: 20 mg Guaifenesin (Mucinex) 1,200 mg PO BID [facility] Last Admin: 04/27/17 09:24 Dose: 1,200 mg Azithromycin 500 mg/ Sodium (Chloride) 250 mls @ 250 mls/hr IV Q24H [facility] Last Admin: 04/27/17 08:41 Dose: 250 mls/hr Ibuprofen (Motrin) 400 mg PO Q6H PRN PRN Reason: Pain (mild 1-3) Lorazepam (Ativan) 0.5 mg PO BID PRN PRN Reason: Anxiety Last Admin: 04/27/17 03:04 Dose: 0.5 mg Losartan Potassium (Cozaar) 25 mg PO DAILY [facility] Last Admin: 04/27/17 08:42 Dose: 25 mg Magnesium Hydroxide (Milk Of Magnesia) 30 ml PO Q12H PRN PRN Reason: Constipation Magnesium Oxide (Magnesium Oxide) 400 mg PO DAILY [facility] Last Admin: 04/27/17 08:41 Dose: 400 mg Metoprolol Tartrate (Lopressor) 5 mg IVPUSH Q6H PRN PRN Reason: HR>120 Last Admin: 04/24/17 20:25 Dose: 5 mg Metoprolol Tartrate (Lopressor) 50 mg PO Q12HR [facility] Last Admin: 04/27/17 08:48 Dose: 50 mg Morphine Sulfate (Morphine) 2 mg IVPUSH Q2H PRN PRN Reason: pain/SOB Nicotine Polacrilex (Nicorelief) 2 mg BUCCAL DAILY PRN PRN Reason: Withdrawal Symptoms Ondansetron HCl (Zofran Odt) 4 mg PO Q4H PRN PRN Reason: Nausea/Vomiting Ondansetron HCl (Zofran) 4 mg IVPUSH Q6H PRN PRN Reason: Nausea Prednisone (Prednisone) 40 mg PO DAILY [facility] Stop: 04/28/17 09:01 Last Admin: 04/27/17 08:41 Dose: 40 mg Prednisone (Prednisone) 30 mg PO DAILY [facility] Stop: 05/01/17 09:01 Prednisone (Prednisone) 20 mg PO DAILY [facility] Stop: 05/04/17 09:01 Prednisone (Prednisone) 10 mg PO DAILY [facility] Stop: 05/07/17 09:01 Psyllium Husk (Metamucil Sugar Free) 1 packet PO DAILY [facility] Last Admin: 04/27/17 08:50 Dose: Not Given Rivaroxaban (Xarelto) 20 mg PO DAILY [facility] Last Admin: 04/27/17 08:41 Dose: 20 mg Simvastatin (Zocor) 10 mg PO BEDTIME [facility] Last Admin: 04/26/17 20:09 Dose: 10 mg Sodium Chloride (Saline Flush) 10 ml FLUSH ASDIRECTED PRN PRN Reason: Keep Vein Open Last Admin: 04/23/17 03:53 Dose: 10 ml Tiotropium [place] (Spiriva Handihaler) 18 mcg INH DAILY [facility] Last Admin: 04/27/17 08:53 Dose: 1 cap Discontinued Medications Albuterol/Ipratropium (Duoneb 3.0-0.5 Mg/3 Ml) 3 ml NEB ONETIME ONE Stop: 04/23/17 03:41 Last Admin: 04/23/17 03:56 Dose: 3 ml Albuterol/Ipratropium (Duoneb 3.0-0.5 Mg/3 Ml) 3 ml NEB ONETIME ONE Stop: 04/23/17 05:23 Last Admin: 04/23/17 05:30 Dose: 3 ml Diltiazem HCl (Diltiazem) 20 mg IVPUSH ONETIME ONE Stop: 04/23/17 08:09 Last Admin: 04/23/17 08:52 Dose: 20 mg Furosemide (Lasix) 40 mg IVPUSH NOW ONE Stop: 04/27/17 09:01 Last Admin: 04/27/17 09:25 Dose: 40 mg Sodium Chloride (Normal Saline) 1,000 mls @ 125 mls/hr IV ASDIRECTED [facility] Last Admin: 04/23/17 03:50 Dose: 125 mls/hr Sodium Chloride (Normal Saline) 1,000 mls @ 75 mls/hr IV ASDIRECTED [facility] Stop: 04/24/17 03:15 Last Admin: 04/23/17 13:55 Dose: 75 mls/hr Methylprednisolone Sodium Succinate (Solu-Medrol) 125 mg IVPUSH ONETIME ONE Stop: 04/23/17 03:41 Last Admin: 04/23/17 03:53 Dose: 125 mg Methylprednisolone Sodium Succinate (Solu-Medrol) 80 mg IVPUSH Q12H [facility] Last Admin: 04/25/17 08:03 Dose: 80 mg Methylprednisolone Sodium Succinate (Solu-Medrol) 40 mg IVPUSH Q12H [facility] Stop: 04/25/17 20:01 Last Admin: 04/25/17 20:54 Dose: 40 mg Metoprolol Succinate (Toprol Xl) 25 mg PO DAILY [facility] Last Admin: 04/23/17 09:01 Dose: 25 mg Metoprolol Succinate (Toprol Xl) 50 mg PO BEDTIME [facility] Last Admin: 04/24/17 20:08 Dose: Not Given Metoprolol Tartrate (Lopressor) 25 mg PO Q12HR [facility] Miscellaneous Information (Remove Patch) 1 ea TRDERM DAILY [facility] Morphine Sulfate (Morphine) 2 mg IVPUSH Q2H PRN PRN Reason: pain/SOB Nicotine (Habitrol) 21 mg TRDERM DAILY [facility] Last Admin: 04/23/17 09:04 Dose: Not Given Ondansetron HCl (Zofran) 4 mg IVPUSH ONETIME ONE Stop: 04/23/17 03:40 Last Admin: 04/23/17 03:51 Dose: 4 mg Ondansetron HCl (Zofran) Confirm Administered Dose 4 mg .ROUTE .STK-MED ONE Stop: 04/23/17 03:54 Last Admin: 04/23/17 03:55 Dose: Not Given - Exam Quality Assessment: Reports: Supplemental Oxygen (1L/NC), DVT Prophylaxis General: Reports: Alert, Oriented, Cooperative, No Acute Distress HEENT: Reports: Pupils Equal, EOMI, Mucous Membr. Moist/[place] Neck: Reports: Supple Lungs: Reports: Normal Respiratory Effort, Decreased Breath Sounds, Wheezing Cardiovascular: Reports: Irregular Rhythm GI/Abdominal Exam: Normal Bowel Sounds, Soft, Non-Tender (Female) Exam: Deferred Rectal (Female) Exam: Deferred Back Exam: Reports: Normal Inspection Extremities: Normal Capillary Refill, Pedal Edema (trace to 1+ bilat to ankles today) Neurological: Reports: No New Focal Deficit Psy/Mental Status: Reports: Alert, Normal Affect, Normal Mood *Q Meaningful Use (DIS) - VTE *Q VTE Criteria *Q: - Stroke *Q Stroke Criteria *Q: - AMI *Q AMI Criteria *Q:
[2017-04-29] MEDS ORDERED: predniSONE 10 MG Tab PO SCH (09:00)
[2017-05-02] MEDS ORDERED: predniSONE 20 MG Tab PO SCH (09:00)
[2017-05-05] MEDS ORDERED: predniSONE 10 MG Tab PO SCH (09:00)
== END 2017-04-27 14:55 | disposition home or self-care (01) | DRG 192 ==
LOC: JD.ED 03:10 → SUPCPDRO 03:10 → JD.MS 06:48
PROVIDERS: ADMIT Internal Medicine Cardiovascular Disease; ATTEND Internal Medicine Cardiovascular Disease
DX: J44.1 Chronic obstructive pulmonary disease with (acute) exacerbation (principal); R09.02 Hypoxemia; Z87.891 Personal history of nicotine dependence; I48.91 Unspecified atrial fibrillation; I25.2 Old myocardial infarction; K80.20 Calculus of gallbladder without cholecystitis without obstruction; E78.5 Hyperlipidemia, unspecified; E78.00 Pure hypercholesterolemia, unspecified; F41.9 Anxiety disorder, unspecified; I10 Essential (primary) hypertension; R79.89 Other specified abnormal findings of blood chemistry; Z88.8 Allergy status to other drugs, medicaments and biological substances; Z79.82 Long term (current) use of aspirin; Z79.899 Other long term (current) drug therapy
CPT/HCPCS: 36415; 71045; 80053; 83880; 84484; 85025; 87804 ×2; 93005; 94640 ×2; 96361; 96374; 96375; 99285; J2405; J2930; J7040; J7050; 71046; 71046-26; 80048; 81001; 83036; 83735; 86140; 86738; 87486; 87581; 87633; 87798; 87899; 93010; 94664; 94667; 94668; 94761; A9270; A9270-GY; J0456; J1940; J2920; J3490

== ENCOUNTER 2017-05-24 11:41 | Emergency (ER) | payer MEDICARE, OTHER ==
[2017-05-24] MEDS ORDERED: Sodium Chloride 0.9% 10 ML Syringe FLUSH PRN (12:17)
[2017-05-24] MEDS ORDERED: Albuterol/Ipratropium 3.0-0.5 MG/3 ML Neb Soln NEB ONE (12:17)
[2017-05-24] MEDS ORDERED: methylPREDNISolone Sodium Succinate 125 MG/2 ML SDV IVPUSH ONE (12:18)
[2017-05-24] MEDS ORDERED: Ondansetron 4 MG/2 ML SDV IVPUSH ONE (12:19)
--- NOTE | 2017-05-24 12:27 | EDM.PDOC ---
ED HPI GENERAL MEDICAL PROBLEM - General Chief Complaint: Cardiovascular Problem Stated Complaint: SOB Time Seen by Provider: 05/24/17 12:21 Source of Information: Reports: Patient, Old Records (recent hospitalization) History Limitations: Reports: No Limitations - History of Present Illness INITIAL COMMENTS - FREE TEXT/NARRATIVE: 71-year-old female presents for evaluation and treatment of cough and shortness of breath. Patient reports her symptoms worsened on Thursday. She has a history of COPD. Since Thursday she has been having to use oxygen that she has at home. She reports a productive cough and sputum production. She also admits to shortness of breath and orthopnea. She is also preceded worsening edema in her lower legs. No chest pain, fevers, chills, nausea or vomiting. She has also appreciated a sore throat and some right ear discomfort. She has been taking Coricidin which is helped with the cough. Primary care provider is Dr. Bryson. She contacted him this week and he instructed to increase her Lasix to 20 mg twice a day, she is not appreciating any difference in her edema with this increase in Lasix. Patient's records show that she was hospitalized beginning of April for COPD exacerbation. She had a stress test and an echocardiogram done which were unremarkable. Patient was sent home with steroids and oxygen. She is not currently on any steroids. States she has not been using her oxygen at home other than when she recently became ill on Thursday. Aside from COPD the patient also has a past medical history of [place] and A. fib. Duration: Day(s): (3) - Related Data Allergies Allergy/AdvReac Type Severity Reaction Status Date / Time nicotine [From Nicoderm CQ] AdvReac Mild Rash Verified 04/23/17 10:43 metals Allergy Rash Uncoded 04/23/17 08:04 Home Meds: Home Meds Albuterol [Ventolin HFA] 2 puff INH Q4HR PRN 04/23/17 [History] Aspirin [Low Dose Aspirin EC] 81 mg PO DAILY 04/23/17 [History] B2/Vit A,C & E/Lut/Zeaxanth/Mn [Icaps] 2 tab PO DAILY 04/23/17 [History] Diltiazem HCl [Diltiazem 24Hr ER] 240 mg PO DAILY 04/23/17 [History] LORazepam 0.5 mg PO BID PRN 04/23/17 [History] Nicotine Polacrilex [Nicotine Lozenge] 2 mg BUCCAL DAILY PRN 04/23/17 [History] [place]-3 Fatty Acids/Fish Oil [Fish Oil 1,200 mg Softgel] 1 cap PO DAILY [History] Pravastatin Sodium 20 mg PO DAILY 04/23/17 [History] Psyllium Husk [Psyllium Fiber] 1 cap PO DAILY 04/23/17 [History] Rivaroxaban [Xarelto] 20 mg PO DAILY 04/23/17 [History] Tiotropium [Spiriva Handihaler] 1 cap INH DAILY 04/23/17 [History] Valsartan 40 mg PO DAILY 04/23/17 [History] Albuterol [IJD: Albuterol] 2.5 mg NEB Q2H PRN #1 box 04/27/17 [Rx] Albuterol/Ipratropium [DuoNeb 3.0-0.5 MG/3 ML] 3 ml NEB QID #1 box 04/27/17 [Rx] Citalopram Hydrobromide [Celexa] 10 mg PO DAILY 04/27/17 [History] Famotidine [Pepcid] 20 mg PO DAILY #30 tablet 04/27/17 [Rx] Furosemide [Lasix] 20 mg PO DAILY 04/27/17 [History] LORazepam [Ativan] 0.5 mg PO TID PRN #60 tablet 04/27/17 [Rx] Magnesium Oxide 400 mg PO DAILY #30 tablet 04/27/17 [Rx] Metoprolol Tartrate [Lopressor] 50 mg PO Q12HR #60 tablet 04/27/17 [Rx] Prednisone [IJD: predniSONE] 20 mg PO DAILY #3 tablet 04/27/17 [Rx] guaiFENesin [Mucinex] 1,200 mg PO BID #60 tab.er 04/27/17 [Rx] predniSONE 10 mg PO DAILY #3 tablet 04/27/17 [Rx] Azithromycin [IJP: Azithromycin] 250 mg PO DAILY #6 tab 05/24/17 [Rx] Prednisone [IJD: predniSONE] 20 mg PO BID #10 tab 05/24/17 [Rx] Past Medical History HEENT History: Reports: Impaired Vision, Macular Degeneration, Other (See Below) Other HEENT History: wears glasses Cardiovascular History: Reports: Heart Failure, High Cholesterol, Hypertension, [place], SOB on Exertion Other Cardiovascular History: blood clot caused heart attack Respiratory History: Reports: COPD, Pneumonia, Recurrent Gastrointestinal History: Reports: Cholelithiasis, Hemorrhoids Genitourinary History: Reports: None ROUTER TENDER History: Reports: None Musculoskeletal History: Reports: Arthritis Neurological History: Reports: Vertigo Psychiatric History: Reports: Anxiety Endocrine/Metabolic History: Reports: None Hematologic History: Reports: None Immunologic History: Reports: None Oncologic (Cancer) History: Reports: None Dermatologic History: Reports: None - Past Surgical History HEENT Surgical History: Reports: Cataract Surgery GI Surgical History: Reports: Appendectomy Female Surgical History: Reports: Tubal Ligation Endocrine Surgical History: Reports: None Neurological Surgical History: Reports: None Musculoskeletal Surgical History: Reports: Other (See Below) Other Musculoskeletal Surgeries/Procedures:: partial left knee replacement Oncologic Surgical History: Reports: None Dermatological Surgical History: Reports: None Social & Family History - Family History Family Medical History: Noncontributory - Tobacco Use Smoking Status *Q: Former Smoker Used Tobacco, but Quit: Yes Month/Year Tobacco Last Used: 8 yrs - Caffeine Use Caffeine Use: Reports: Coffee, Soda Other Caffeine Use: drinks decaffinated coffee - Recreational Drug Use Recreational Drug Use: No ED ROS GENERAL - Review of Systems Review Of Systems: See Below Constitutional: Denies: Fever, Chills HEENT: Reports: Ear Pain (right), Throat Pain Respiratory: Reports: Shortness of Breath, Cough, Sputum Cardiovascular: Reports: Edema, Orthopnea. Denies: Chest Pain GI/Abdominal: Denies: Nausea, Vomiting ED EXAM, GENERAL - Physical Exam Exam: See Below Exam Limited By: No Limitations General Appearance: Alert, WD/WN, Mild Distress, Obese Ears: Normal External Exam, Normal Canal, Hearing Grossly Normal, Normal TMs Nose: Normal Inspection Throat/Mouth: Normal Inspection, Normal Lips, Normal Voice, No Airway Compromise Neck: Normal Inspection Respiratory/Chest: No Respiratory Distress, Decreased Breath Sounds, Rhonchi ( left lung base), Wheezing (diffuse exiratory) Cardiovascular: No Murmur, Irregularly Irregular Extremities: Normal Inspection, Pedal Edema (1+ nonpitting edema) Neurological: Alert, Oriented, Normal Cognition Psychiatric: Normal Affect, Normal Mood Skin Exam: Warm, Dry, Normal Color EKG INTERPRETATION EKG Date: 05/24/17 Time: 13:10 Rhythm: A-Fib Rate (Beats/Min): 85 [place]: Normal P-Wave: Present QRS: Normal ST-T: Normal QT: Prolonged EKG Interpretation Comments: a.fib with a rate of 85 bpm. Prolonged Qt interval . Reviewed by myself and Dr. Khan. Course - Vital Signs Last Recorded V/S: Last Vital Signs Temp 36.7 C 05/24/17 11:52 Pulse 92 05/24/17 11:52 Resp 19 05/24/17 11:52 BP 158/90 H 05/24/17 11:52 Pulse Ox 93 L 05/24/17 13:02 - Orders/Labs/Meds Orders: Active Orders 24 hr Category Date Time Status EKG 12 Lead [EKG Documentation Completion] [RC] STAT Care 05/24/17 12:18 Active Peripheral IV Care [RC] . DIRECTED Care 05/24/17 12:17 Active RT Aerosol Therapy [RC] ASDIRECTED Care 05/24/17 12:17 Active CULTURE STREP A CONFIRMATION [] Stat Lab 05/24/17 12:40 Results INFLUENZA A+B AG SCREEN [] Stat Lab 05/24/17 12:40 Ordered STREP SCRN A RAPID W CULT CONF [] Stat Lab 05/24/17 12:40 Ordered Peripheral IV Insertion Adult [OM.PC] Routine Oth 05/24/17 12:16 Ordered Labs: Laboratory Tests 05/24/17 05/24/17 05/24/17 Range/Units 12:45 12:45 12:45 WBC 8.37 (3.98-10.04) K/mm3 RBC 4.46 (3.98-5.22) M/mm3 Hgb 12.8 (11.2-15.7) gm/L Hct 40.3 (34.1-44.9) % MCV 90.4 (79.4-94.8) fl MCH 28.7 (25.6-32.2) pg MCHC 31.8 L (32.2-35.5) g/dl RDW Std Deviation 47.1 H (36.4-46.3) fL Plt Count 291 (182-369) K/mm3 MPV 9.8 (9.4-12.3) fl Neutrophils % (Manual) 78 H (40-60) % Band Neutrophils % 0 (0-10) % Lymphocytes % (Manual) 18 L (20-40) % Atypical Lymphs % 0 % Monocytes % (Manual) 2 (2-10) % Eosinophils % (Manual) 2 (0.7-5.8) % Basophils % (Manual) 0 L (0.1-1.2) Platelet Estimate Adequate RBC Morph Comment Normal Sodium 136 (136-145) mEq/L Potassium 4.2 (3.5-5.1) mEq/L Chloride 95 L (98-107) mEq/L Carbon Dioxide 34 H (21-32) mEq/L Anion Gap 11.2 (5-15) BUN 12 (7-18) mg/dL Creatinine 0.7 (0.55-1.02) mg/dL Est Cr Clr Drug Dosing 57.46 mL/min Estimated GFR (MDRD) > 60 (>60) mL/min BUN/Creatinine Ratio 17.1 (14-18) Glucose 114 (83-115) mg/dL Calcium 8.8 (8.5-10.1) mg/dL Magnesium 1.8 (1.8-2.4) mg/dl Total Bilirubin 0.5 (0.2-1.0) mg/dL AST 18 (15-37) U/L ALT 24 (14-59) U/L Alkaline Phosphatase 69 (46-116) U/L Troponin I < 0.017 (0.00-0.056) ng/mL NT-Pro-B Natriuret Pep 1839 H (0-125) pg/mL Total Protein 6.6 (6.4-8.2) g/dl Albumin 3.8 (3.4-5.0) g/dl Globulin 2.8 gm/dL Albumin/Globulin Ratio 1.4 (1-2) Meds: Medications Discontinued Medications Generic Name Dose Route Start Last Admin Trade Name Freq PRN Reason Stop Dose Admin Albuterol/Ipratropium 3 ml 05/24/17 12:17 05/24/17 13:02 Duoneb 3.0-0.5 Mg/3 Ml NEB 05/24/17 12:18 3 ml ONETIME ONE Administration Methylprednisolone Sodium Succinate 125 mg 05/24/17 12:18 05/24/17 12:49 Solu-Medrol IVPUSH 05/24/17 12:19 125 mg ONETIME ONE Administration Ondansetron HCl 4 mg 05/24/17 12:19 05/24/17 12:48 Zofran IVPUSH 05/24/17 12:20 4 mg ONETIME ONE Administration Sodium Chloride 10 ml 05/24/17 12:17 05/24/17 12:49 Saline Flush FLUSH 10 ml ASDIRECTED PRN Administration Keep Vein Open - Radiology Interpretation Free Text/Narrative:: Chest: Two views of the chest were obtained. Comparison: Prior chest x-ray of 04/24/17. Heart size is slightly enlarged. Tortuous aorta is noted. Lungs are clear. Lungs are hyperinflated compatible with emphysematous change. Bony structures appear within normal limits for the patient's age. Impression: 1. Emphysematous change. Other incidental findings. Nothing acute is otherwise seen on two-view chest x-ray. - Re-Assessments/Exams Free Text/Narrative Re-Assessment/Exam: 05/24/17 14:11 I checked on the patient. She is sleeping at this time. After the DuoNeb and Solu-Medrol her oxygen sats are now in the 97% area. Plan will be to discharge her home a Z-Jim short prednisone burst and continue with her nebulizers as prescribed. She should also increase her Lasix as prescribed. I will let her rest a short while longer and check on her again shortly. 05/24/17 15:10 I reviewed the labs, EKG and chest x-ray with the patient. Her rapid strep is negative. Her rapid flu is negative. I feel she is having a mild COPD exacerbation. She feels greatly improved after the DuoNeb in the IV Solu-Medrol. I Do not feel she is to be admitted today. we can send her home with close follow-up. I'll also prescribe her azithromycin and prednisone. I do feel given that she's had a second COPD exacerbation within the last month that should benefit from a pulmonology consult. I did give the names of some [facility] leader in [place] that she is to follow-up with. She states she has follow-up with cardiology scheduled this week. Discharge instructions as documented. Departure - Departure Time of Disposition: 15:18 Disposition: Home, Self-Care 01 Condition: Fair Clinical Impression: COPD exacerbation Prescriptions: Azithromycin [IJP: Azithromycin] 250 mg PO DAILY #6 tab Prednisone [IJD: predniSONE] 20 mg PO BID #10 tab Instructions: Chronic Obstructive Pulmonary Disease Exacerbation, [id number] Referrals: Alfa Reid MD [Primary Care Provider] - Vick Murphy MD [Ordering Only Provider] - Forms: ED Department Discharge Additional Instructions: Azithromycin 2 tabs on day 1 followed by 1 Days 2 through 5 for 5 Days of Antibiotics Total. Take the Prednisone As Prescribed. Start This Tomorrow. 1 Tab Twice a Day for 5 Days. Follow-Up with Your Primary Care Provider for Recheck of your Symptoms This Week. Recommend Seeing pulmonology for Consultation. Call [phone] to schedule with the powder [facility] primer canning leader at [facility] in [place]. Recommend Dr. Murphy or or Dr. Lucas. Continue her compression socks. check your weight daily. Watch your salt intake. Please return to the ER if your symptoms change or worsen. - My Orders Last 24 Hours: My Active Orders 05/24/17 12:16 Peripheral IV Insertion Adult [OM.PC] Routine 05/24/17 12:17 Peripheral IV Care [RC] . DIRECTED RT Aerosol Therapy [RC] ASDIRECTED 05/24/17 12:18 EKG 12 Lead [EKG Documentation Completion] [RC] STAT 05/24/17 12:40 CULTURE STREP A CONFIRMATION [RM] Stat INFLUENZA A+B AG SCREEN [RM] Stat STREP SCRN A RAPID W CULT CONF [RM] Stat - Assessment/Plan Last 24 Hours: My Active Orders 05/24/17 12:16 Peripheral IV Insertion Adult [OM.PC] Routine 05/24/17 12:17 Peripheral IV Care [RC] . DIRECTED RT Aerosol Therapy [RC] ASDIRECTED 05/24/17 12:18 EKG 12 Lead [EKG Documentation Completion] [RC] STAT 05/24/17 12:40 CULTURE STREP A CONFIRMATION [RM] Stat INFLUENZA A+B AG SCREEN [RM] Stat STREP SCRN A RAPID W CULT CONF [RM] Stat
--- NOTE | 2017-05-24 17:52 | CR ---
Chest: Two views of the chest were obtained. Comparison: Prior chest x-ray of 04/24/17. Heart size is slightly enlarged. Tortuous aorta is noted. Lungs are clear. Lungs are hyperinflated compatible with emphysematous change. Bony structures appear within normal limits for the patient's age. Impression: 1. Emphysematous change. Other incidental findings. Nothing acute is otherwise seen on two-view chest x-ray. Diagnostic code #2
== END 2017-05-24 15:50 | disposition home or self-care (01) ==
LOC: JD.ED 11:41
DX: J44.1 Chronic obstructive pulmonary disease with (acute) exacerbation (principal); I11.0 Hypertensive heart disease with heart failure; I50.9 Heart failure, unspecified; I25.2 Old myocardial infarction; E78.00 Pure hypercholesterolemia, unspecified; Z88.8 Allergy status to other drugs, medicaments and biological substances; Z91.048 Other nonmedicinal substance allergy status; Z79.82 Long term (current) use of aspirin; Z79.899 Other long term (current) drug therapy; Z87.891 Personal history of nicotine dependence
CPT/HCPCS: 36415; 71046; 80053; 83735; 83880; 84484; 85025; 87081; 87430; 87804; 93005; 94640; 96374; 96375; 99285; J2405; J2930; J7050; 93010; 99284

== ENCOUNTER 2017-07-01 00:46 | Inpatient (IN) | payer MEDICARE, OTHER ==
[~2017-07-01 00:46] MED LIST: Adenosine 12 MG/4 ML SDV ONE
[2017-07-01] MEDS ORDERED: Diltiazem 25 MG/5 ML SDV IVPUSH ONE (00:53)
[2017-07-01] MEDS ORDERED: Furosemide 40 MG/4 ML VIAL IVPUSH ONE ×2 (00:57→16:46)
[2017-07-01] MEDS ORDERED: Sodium Chloride 0.9% 10 ML Syringe FLUSH PRN (00:58)
--- NOTE | 2017-07-01 00:59 | EDM.PDOC ---
ED HPI GENERAL MEDICAL PROBLEM - General Chief Complaint: Cardiovascular Problem Stated Complaint: [facility] Time Seen by Provider: 07/01/17 00:46 Source of Information: Reports: Patient, EMS Notes Reviewed History Limitations: Reports: No Limitations - History of Present Illness INITIAL COMMENTS - FREE TEXT/NARRATIVE: 71-year-old female brought to the ED per ambulance. She reports that she's noticed increased fluttering and elevated heart rate for the last few days. She was particularly noted Thursday Mother's Day. Tonight things became really bad about 2200 hrs. She became so short of breath with associated central chest discomfort that she was forced to call the ambulance. she uses oxygen usually at 1 21-1/2 L at nighttime. She had been using a 1-1/2 most of last weekend.Paramedics came her 6 mg of a dental card IV per phone instructions as her heart rate was up to 2 21/m looking like an SVT. This letter down to around 156 and you can see that she was an underlying atrial fibrillation. The history suggests she has chronic A. fib and is on Xarelto. she states she has had intermittent previous similar bouts where the heart will take off and go very fast. She denies missing any of her medications or recent changes to her medications. She presents in respiratory distress cool clammy able to speak in about 2-3 word sentences. He prefers to sit up straight to get her breath. Plan will be to immediately start her on Cardizem drip andnitroglycerin drip for congestive failure. Initial BP is 205 systolic.paramedics gave her 324 mg aspirin en route as well as one albuterol treatment in the 6 mg of the data card as mentioned above intravenously. Onset: Gradual (history suggests gradually worsening dyspnea and rapid heart rate.) Onset Date: 06/30/17 Duration: Day(s): (diane a period of 3 or 4 days however.) Location: Reports: Chest (increase troubles breathing and increased shortness of breateased coughand increased palpitations.) Quality: Reports: Other Severity: Severe (alpitations with increased shortness of breath and central chest discomfort.became severe about 2200 hrs. last evening) Improves with: Reports: None Worsens with: Reports: None Context: Reports: Other (history of chronic atrial fibrillation.). Denies: Activity, Exercise, Lifting, Sick Contact, Trauma Associated Symptoms: Reports: Chest Pain, Cough, cough w sputum, Malaise, Shortness of Breath, Weakness. 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: Reports: Other (see below) (cannot walk on her own.paramedics gave versus 324 mg of aspirin albuterol treatment and 6 mg of it and occurred IV.) - Related Data Allergies Allergy/AdvReac Type Severity Reaction Status Date / Time [facility] AdvReac Mild Rash Verified 07/01/17 00:48 metals Allergy Rash Uncoded 07/01/17 00:48 Home Meds: Home Meds Albuterol [Ventolin HFA] 2 puff INH Q4HR PRN 04/23/17 [History] Aspirin [Low Dose Aspirin EC] 81 mg PO DAILY 04/23/17 [History] LORazepam 0.5 mg PO BID PRN 04/23/17 [History] [place]-3 Fatty Acids/Fish Oil [Fish Oil 1,200 mg Softgel] 1 cap PO DAILY [History] Pravastatin Sodium 20 mg PO DAILY 04/23/17 [History] Psyllium Husk [Psyllium Fiber] 0.52 gm PO DAILY 04/23/17 [History] Rivaroxaban [Xarelto] 20 mg PO DAILY 04/23/17 [History] Tiotropium [Spiriva Handihaler] 1 cap INH DAILY 04/23/17 [History] Valsartan 40 mg PO DAILY 04/23/17 [History] Albuterol/Ipratropium [DuoNeb 3.0-0.5 MG/3 ML] 3 ml NEB QID #1 box 04/27/17 [Rx] Citalopram Hydrobromide [Celexa] 10 mg PO DAILY 04/27/17 [History] Furosemide [Lasix] 20 mg PO DAILY 04/27/17 [History] Metoprolol Tartrate [Lopressor] 50 mg PO Q12HR #60 tablet 04/27/17 [Rx] guaiFENesin [Mucinex] 1,200 mg PO BID #60 tab.er 04/27/17 [Rx] Prednisone [IJD: predniSONE] 20 mg PO BID #10 tab 05/24/17 [Rx] Albuterol [IJD: Albuterol] 2.5 mg NEB QID PRN 07/01/17 [History] B2/Vit A,C & E/Lut/Zeaxanth/Mn [Icaps] 2 cap PO DAILY 07/01/17 [History] Digoxin 125 mcg PO DAILY 07/01/17 [History] Past Medical History HEENT History: Reports: Impaired Vision, Macular Degeneration, Other (See Below) Other HEENT History: wears glasses Cardiovascular History: Reports: Afib (chronically it's unclear whether this his paroxysmal atrial fibrillation or chronic A. fib with aroxysmal worsening.) , Heart Failure, High Cholesterol, Hypertension, DC, SOB on Exertion Other Cardiovascular History: blood clot caused heart attack Respiratory History: Reports: COPD (sually on oxygen at 1 L/m during the nighttime and sometimes during the day.), Pneumonia, Recurrent Gastrointestinal History: Reports: Cholelithiasis, Hemorrhoids Genitourinary History: Reports: None [employer] History: Reports: None Musculoskeletal History: Reports: Arthritis Neurological History: Reports: Vertigo Psychiatric History: Reports: Anxiety Endocrine/Metabolic History: Reports: None Hematologic History: Reports: None Immunologic History: Reports: None Oncologic (Cancer) History: Reports: None Dermatologic History: Reports: None - Past Surgical History HEENT Surgical History: Reports: Cataract Surgery GI Surgical History: Reports: Appendectomy Female Surgical History: Reports: Tubal Ligation Endocrine Surgical History: Reports: None Neurological Surgical History: Reports: None Musculoskeletal Surgical History: Reports: Other (See Below) Other Musculoskeletal Surgeries/Procedures:: partial left knee replacement Oncologic Surgical History: Reports: None Dermatological Surgical History: Reports: None Social & Family History - Family History Family Medical History: Noncontributory - Caffeine Use Caffeine Use: Reports: Coffee, Soda Other Caffeine Use: drinks decaffinated coffee - Living Situation & Occupation Living situation: Reports: Occupation: Retired ED ROS GENERAL - Review of Systems Review Of Systems: See Below Constitutional: Reports: Malaise, Weakness, Fatigue, Decreased Appetite. Denies : Fever, Chills HEENT: Reports: Glasses Respiratory: Reports: Shortness of Breath, Wheezing, Cough, Sputum (clear sputum ). Denies: Pleuritic Chest Pain, Hemoptysis Cardiovascular: Reports: Chest Pain (central chest heaviness), Blood Pressure Problem, Edema (occasional mild dependent edema she reports worsens after she takes a course of prednisone.). Denies: Claudication, Lightheadedness, Orthopnea Endocrine: Reports: Fatigue GI/Abdominal: Reports: Constipation : Reports: Incontinence (some urge and stress components) Musculoskeletal: Reports: Back Pain, Joint Pain (knees hips back and neck at times) Skin: Reports: Bruising (uses easily as she is on Xarelto.) Neurological: Reports: No Symptoms Psychiatric: Reports: No Symptoms ED EXAM, GENERAL - Physical Exam Exam: See Below Exam Limited By: Respiratory Distress (presents in severe respiratory distress. Can talk in 2 or 3 word sentences. Prefers to sit up) General Appearance: Alert ( and get her breath.), Severe Distress (severe respiratory distress.) Eye Exam: Bilateral Eye: Normal Inspection Throat/Mouth: Normal Inspection, Normal Oropharynx, Other Head: Atraumatic, Normocephalic (ongue is mildly dry and coated) Neck: Normal Inspection, Supple, Non-Tender, Full Range of Motion. No: Carotid Bruit, Lymphadenopathy (L), Lymphadenopathy (R) Respiratory/Chest: Respiratory Distress (severe tachypnea 30-36/m.), Decreased Breath Sounds, Crackles (diffuse wheezing from all lung webster.few crackles both bases.), Wheezing (breath sounds are diminished to the lower 30% of lung webster bilaterally.), Accessory Muscle Use (moderate) Cardiovascular: Irregularly Irregular (trial fibrillation on the monitor in the 170s.). No: Normal Peripheral Pulses Peripheral Pulses: 1+: Posterior Tibial (L), Posterior Tibial (R) (weak pulses to her feet), Dorsalis Pedis (L), Dorsalis Pedis (R) GI/Abdominal: Normal Bowel Sounds, Soft, Non-Tender, No Organomegaly, Distended (h aerophagia.) Extremities: Normal Inspection, Normal Range of Motion, Non-Tender, Pedal Edema Neurological: Alert (trace pedal edema at the feet.), Oriented, CN II-XII Intact , Normal Cognition Psychiatric: Anxious Skin Exam: Cool (cool and clammy.), Diaphoretic EKG INTERPRETATION EKG Date: 07/01/17 Time: 00:50 Rhythm: A-Fib (with a rate of 85-225/m.) Rate (Beats/Min): 158 (left atrial hypertrophy pattern.) Penelope: Normal P-Wave: Absent QRS: Other (here are Q waves V1 to V3 compatible with an old anteroseptal myocardial infarction. also Q-wave in aVL which by itself is insignificant.) ST-T: Depressed (there is ST depression V4 V6 123 and aVF compatible with global ischemia.) QT: Normal EKG Interpretation Comments: bnormal ECG Course - Vital Signs Last Recorded V/S: Last Vital Signs Temp 36.1 C 07/01/17 00:48 Pulse 147 H 07/01/17 00:48 Resp 29 H 07/01/17 00:48 BP 205/149 H 07/01/17 00:48 Pulse Ox 100 07/01/17 00:48 - Orders/Labs/Meds Orders: Active Orders 24 hr Category Date Time Status EKG Documentation Completion [RC] STAT Care 07/01/17 00:58 Active EKG Documentation Completion [RC] STAT Care 07/01/17 01:49 Active Peripheral IV Care [RC] . DIRECTED Care 07/01/17 00:59 Active Chest 1V Frontal [CR] Stat Exams 07/01/17 00:58 Taken CBC WITH MANUAL DIFF [HEME] Stat Lab 07/01/17 00:50 Results DIGOXIN [CHEM] Stat Lab 07/01/17 02:04 Ordered T4 FREE [CHEM] Stat Lab 07/01/17 02:04 Ordered TSH [CHEM] Stat Lab 07/01/17 02:04 Ordered Albuterol Med 07/01/17 02:03 Ordered 2.5 mg NEB QID PRN Albuterol/Ipratropium [DuoNeb 3.0-0.5 MG/3 ML] Med 07/01/17 09:00 Ordered 3 ml NEB QID Aspirin [Halfprin] Med 07/01/17 09:00 Ordered 81 mg PO DAILY B2/Vit A,C & E/Lut/Zeaxanth/Mn [Icaps] Med 07/01/17 09:00 Ordered 2 cap PO DAILY Citalopram [Celexa] Med 07/01/17 09:00 Ordered 10 mg PO DAILY Digoxin [Lanoxin] Med 07/01/17 09:00 Ordered 125 mcg PO DAILY Diltiazem 125 mg Med 07/01/17 01:00 Active Sodium Chloride 0.9% [Normal Saline] 100 ml IV ASDIRECTED Furosemide [Lasix] Med 07/01/17 09:00 Ordered 20 mg PO DAILY LORazepam [Ativan] Med 07/01/17 02:00 Ordered 0.5 mg PO BID PRN Metoprolol Tartrate [Lopressor] Med 07/01/17 09:00 Ordered 50 mg PO Q12HR Nitroglycerin/D5W [Nitroglycerin 25 MG/D5W 250 ML] Med 07/01/17 01:00 Active 25 mg in 250 ml IV ASDIRECTED [place]-3 Fatty Acids/Fish Oil [Fish Oil 1,200 mg Softgel Med 07/01/17 09:00 Ordered ] 1 cap PO DAILY Pravastatin Med 07/01/17 09:00 Ordered 20 mg PO DAILY Rivaroxaban [Xarelto] Med 07/01/17 09:00 Ordered 20 mg PO DAILY Sodium Chloride 0.9% [Saline Flush] Med 07/01/17 00:58 Active 10 ml FLUSH ASDIRECTED PRN Tiotropium Med 07/01/17 09:00 Ordered 1 cap INH DAILY Valsartan [Valsartan] Med 07/01/17 09:00 Ordered 40 mg PO DAILY guaiFENesin [Mucinex] Med 07/01/17 09:00 Ordered 1,200 mg PO BID predniSONE Med 07/01/17 09:00 Ordered 20 mg PO BID Peripheral IV Insertion Adult [OM.PC] Stat Oth 07/01/17 00:58 Ordered Medication Orders Albuterol/Ipratropium (Duoneb 3.0-0.5 Mg/3 Ml) 3 ml NEB QID [facility] Aspirin (Halfprin) 81 mg PO DAILY [facility] Citalopram Hydrobromide (Celexa) 10 mg PO DAILY [facility] Digoxin (Lanoxin) 125 mcg PO DAILY [facility] Furosemide (Lasix) 20 mg PO DAILY [facility] Guaifenesin (Mucinex) 1,200 mg PO BID [facility] Diltiazem HCl 125 mg/ Sodium (Chloride) 125 mls @ 10 mls/hr IV ASDIRECTED [facility] Last Admin: 07/01/17 01:06 Dose: 10 mg/hr, 10 mls/hr Nitroglycerin/Dextrose (Nitroglycerin 25 Mg/D5w 250 Ml) 25 mg in 250 mls @ 6 mls/hr IV ASDIRECTED [facility] Last Admin: 07/01/17 01:23 Dose: 10 mcg/min, 6 mls/hr Lorazepam (Ativan) 0.5 mg PO BID PRN PRN Reason: Anxiety Metoprolol Tartrate (Lopressor) 50 mg PO Q12HR [facility] Non-Formulary Medication (Albuterol) 2.5 mg NEB QID PRN PRN Reason: SOB/Wheezing Non-Formulary Medication (B2/Vit A,C & E/Lut/Zeaxanth/Mn [Icaps]) 2 cap PO DAILY [facility] Non-Formulary Medication ([place]-3 Fatty Acids/Fish Oil [Fish Oil 1,200 Mg Softgel]) 1 cap PO DAILY [facility] Non-Formulary Medication (Pravastatin) 20 mg PO DAILY [facility] Non-Formulary Medication (Prednisone) 20 mg PO BID [facility] Non-Formulary Medication (Rivaroxaban [Xarelto]) 20 mg PO DAILY [facility] Non-Formulary Medication (Tiotropium) 1 cap INH DAILY [facility] Non-Formulary Medication (Valsartan [Valsartan]) 40 mg PO DAILY [facility] Sodium Chloride (Saline Flush) 10 ml FLUSH ASDIRECTED PRN PRN Reason: Keep Vein Open Last Admin: 07/01/17 01:46 Dose: 10 ml Labs: Laboratory Tests 07/01/17 07/01/17 07/01/17 Range/Units 00:50 00:50 00:50 WBC 18.61 H (3.98-10.04) K/mm3 RBC 4.88 (3.98-5.22) M/mm3 Hgb 13.8 (11.2-15.7) gm/L Hct 43.9 (34.1-44.9) % MCV 90.0 (79.4-94.8) fl MCH 28.3 (25.6-32.2) pg MCHC 31.4 L (32.2-35.5) g/dl RDW Std Deviation 50.7 H (36.4-46.3) fL Plt Count 294 (182-369) K/mm3 MPV 10.4 (9.4-12.3) fl PT 12.5 H (9.5-12.1) SECONDS INR 1.15 Sodium 136 (136-145) mEq/L Potassium 3.9 (3.5-5.1) mEq/L Chloride 97 L (98-107) mEq/L Carbon Dioxide 32 (21-32) mEq/L Anion Gap 10.9 (5-15) BUN 17 (7-18) mg/dL Creatinine 1.1 H (0.55-1.02) mg/dL Est Cr Clr Drug Dosing 36.56 mL/min Estimated GFR (MDRD) 49 (>60) mL/min BUN/Creatinine Ratio 15.5 (14-18) Glucose 142 H (83-115) mg/dL Calcium 8.8 (8.5-10.1) mg/dL Magnesium 1.7 L (1.8-2.4) mg/dl Total Bilirubin 0.4 (0.2-1.0) mg/dL AST 42 H (15-37) U/L ALT 66 H (14-59) U/L Alkaline Phosphatase 84 (46-116) U/L CK-MB (CK-2) 2.4 (0-3.6) ng/ml Troponin I < 0.017 (0.00-0.056) ng/mL C-Reactive Protein 2.3 H* (<1.0) mg/dL NT-Pro-B Natriuret Pep (0-125) pg/mL Total Protein 7.3 (6.4-8.2) g/dl Albumin 3.8 (3.4-5.0) g/dl Globulin 3.5 gm/dL Albumin/Globulin Ratio 1.1 (1-2) 18 Range/Units 00:50 WBC (3.98-10.04) K/mm3 RBC (3.98-5.22) M/mm3 Hgb (11.2-15.7) gm/L Hct (34.1-44.9) % MCV (79.4-94.8) fl MCH (25.6-32.2) pg MCHC (32.2-35.5) g/dl RDW Std Deviation (36.4-46.3) fL Plt Count (182-369) K/mm3 MPV (9.4-12.3) fl PT (9.5-12.1) SECONDS INR Sodium (136-145) mEq/L Potassium (3.5-5.1) mEq/L Chloride (98-107) mEq/L Carbon Dioxide (21-32) mEq/L Anion Gap (5-15) BUN (7-18) mg/dL Creatinine (0.55-1.02) mg/dL Est Cr Clr Drug Dosing mL/min Estimated GFR (MDRD) (>60) mL/min BUN/Creatinine Ratio (14-18) Glucose (83-115) mg/dL Calcium (8.5-10.1) mg/dL Magnesium (1.8-2.4) mg/dl Total Bilirubin (0.2-1.0) mg/dL AST (15-37) U/L ALT (14-59) U/L Alkaline Phosphatase (46-116) U/L CK-MB (CK-2) (0-3.6) ng/ml Troponin I (0.00-0.056) ng/mL C-Reactive Protein (<1.0) mg/dL NT-Pro-B Natriuret Pep 3923 H (0-125) pg/mL Total Protein (6.4-8.2) g/dl Albumin (3.4-5.0) g/dl Globulin gm/dL Albumin/Globulin Ratio (1-2) Meds: Medications Generic Name Dose Route Start Last Admin Trade Name Freq PRN Reason Stop Dose Admin Albuterol/Ipratropium 3 ml 07/01/17 09:00 Duoneb 3.0-0.5 Mg/3 Ml NEB QID [facility] Aspirin 81 mg 07/01/17 09:00 Halfprin PO DAILY [facility] Citalopram Hydrobromide 10 mg 07/01/17 09:00 Celexa PO DAILY [facility] Digoxin 125 mcg 07/01/17 09:00 Lanoxin PO DAILY [facility] Furosemide 20 mg 07/01/17 09:00 Lasix PO DAILY [facility] Guaifenesin 1,200 mg 07/01/17 09:00 Mucinex PO BID [facility] Diltiazem HCl 125 mg/ Sodium 125 mls @ 10 mls/hr 07/01/17 01:00 07/01/17 01: 06 Chloride IV 10 mg/hr ASDIRECTED [facility]EX 10 mls/hr Administration 10 MG/HR Nitroglycerin/Dextrose 25 mg in 250 mls @ 6 mls/hr 07/01/17 01:00 07/01/17 01 :23 Nitroglycerin 25 Mg/D5w 250 Ml IV 10 mcg/min ASDIRECTED [facility]EX 6 mls/hr Administration 10 MCG/MIN Lorazepam 0.5 mg 07/01/17 02:00 Ativan PO BID PRN Anxiety Metoprolol Tartrate 50 mg 07/01/17 09:00 Lopressor PO Q12HR [facility]EX Non-Formulary Medication 2.5 mg 07/01/17 02:03 Albuterol NEB QID PRN SOB/Wheezing Non-Formulary Medication 2 cap 07/01/17 09:00 B2/Vit A,C & E/Lut/Zeaxanth/Mn [Icaps] PO DAILY [facility] Non-Formulary Medication 1 cap 07/01/17 09:00 [place]-3 Fatty Acids/Fish Oil [Fish Oil 1,200 Mg Softgel] PO DAILY [facility] Non-Formulary Medication 20 mg 07/01/17 09:00 Pravastatin PO DAILY [facility] Non-Formulary Medication 20 mg 07/01/17 09:00 Prednisone PO BID [facility] Non-Formulary Medication 20 mg 07/01/17 09:00 Rivaroxaban [Xarelto] PO DAILY [facility] Non-Formulary Medication 1 cap 07/01/17 09:00 Tiotropium INH DAILY [facility] Non-Formulary Medication 40 mg 07/01/17 09:00 Valsartan [Valsartan] PO DAILY [facility] Sodium Chloride 10 ml 07/01/17 00:58 07/01/17 01:46 Saline Flush FLUSH 10 ml ASDIRECTED PRN Administration Keep Vein Open Discontinued Medications Generic Name Dose Route Start Last Admin Trade Name Freq PRN Reason Stop Dose Admin Acetaminophen 975 mg 07/01/17 01:26 07/01/17 01:46 Tylenol PO 07/01/17 01:27 975 mg NOW ONE Administration Diltiazem HCl 10 mg 07/01/17 00:53 07/01/17 00:56 Diltiazem IVPUSH 07/01/17 00:54 10 mg ONETIME ONE Administration Furosemide 40 mg 07/01/17 00:57 07/01/17 01:10 Lasix IVPUSH 07/01/17 00:58 40 mg NOW ONE Administration - Radiology Interpretation Free Text/Narrative:: 71-year-old female presents to the ED with acute respiratory distress. Patient reports things got much worse at about 2200 hrs. last night buhe's been struggling with her breathing and palpitations over the last 3-4 days. No associated fever or chills. She is appreciatedorthopnea the last 3 nights. She has a history of chronic atrial fibrillation and is on Xarelto.when the paramedics arrived her heart rate would go as high as 221/m and looked like SVT. She was given 6 mg of the data card IV as per my phone instructions and they can identify her heart rate went down to 156 with underlying rhythm of atrial fibrillation. They arrived here shortly after this. She was thus started immediately a Cardizem drip 10 mg IV bolus then 10 mg per hour. Clinically she is in acute congestive failure and likely pulmonary edema. Given Lasix 40 mg IV will also be started on nitroglycerin drip 10 mcg/m to help lower her blood pressure and improve her respiratory distress by dropping her afterload and preload. Oxygen will be 4 L/m by nasal cannula. Routine labs to be done including cardiac markers magnesium and BNP. One view chest x-ray to be done. - Re-Assessments/Exams Free Text/Narrative Re-Assessment/Exam: 07/01/17 01:28 hest x-ray done portably reveals mild cardiomegaly. Diffuse central vascular congestion with compatible with acute pulmonary edema. 07/01/17 01:45 Heart rate is down to around 110 remaining in atrial fibrillation. BP is now 1:30 09/16/02. O2 sats 93% on 4 L. 07/01/17 02:11 Labs reveal an elevated white count at 18.61. Differentials not yet available. Hemoglobin is 13.8 with hematocrit of 43.9. PT is 12.5 with an INR of 1.15. Sodium 136 with a potassium of 3.9. Chloride 97 with a bicarbonate of 32. I.e. CO2 retainer. Anion gap is 10.9. BUN is 17 with a creatinine of 1.1. EGFR is 49. Glucose is 142. Calcium is normal at 8.8. Magnesium slightly low at 1.7. Bilirubin is 0.4. AST is 42. I.e. ALT is 66. Alk phosphatase is 84. CK-MB fraction is normal at 2.4 troponin I is less than 0.017. C-reactive protein is 2.3. BNP is 3923.patient is now able to speak in near complete sentences. She is still working fairly hard to breathe with a respiratory rate of 28/m. BP is maintained at 146/68. Heart rate remains in atrial fibrillation around 1 10/m. O2 sats 96% on 4 L. Case is been discussed with Dr. Betancourt- container shop welder hospitalist and he will attend her in the intensive care unit. Departure - Departure Time of Disposition: 02:06 Disposition: Admitted As Inpatient 65 Condition: Fair Clinical Impression: Acute pulmonary edema, Paroxysmal atrial fibrillation with RVR, Abnormal ECG Referrals: PCP,None [Primary Care Provider] - Forms: ED Department Discharge - My Orders Last 24 Hours: My Active Orders 07/01/17 00:50 CBC WITH MANUAL DIFF [HEME] Stat 07/01/17 00:58 EKG Documentation Completion [RC] STAT Chest 1V Frontal [CR] Stat Sodium Chloride 0.9% [Saline Flush] 10 ml FLUSH ASDIRECTED PRN Peripheral IV Insertion Adult [OM.PC] Stat 07/01/17 00:59 Peripheral IV Care [RC] . DIRECTED 07/01/17 01:00 Diltiazem 125 mg Sodium Chloride 0.9% [Normal Saline] 100 ml IV ASDIRECTED Nitroglycerin/D5W [Nitroglycerin 25 MG/D5W 250 ML] 25 mg in 250 ml IV ASDIRECTED 07/01/17 01:49 EKG Documentation Completion [RC] STAT - Assessment/Plan Last 24 Hours: My Active Orders 07/01/17 00:50 CBC WITH MANUAL DIFF [HEME] Stat 07/01/17 00:58 EKG Documentation Completion [RC] STAT Chest 1V Frontal [CR] Stat Sodium Chloride 0.9% [Saline Flush] 10 ml FLUSH ASDIRECTED PRN Peripheral IV Insertion Adult [OM.PC] Stat 07/01/17 00:59 Peripheral IV Care [RC] . DIRECTED 07/01/17 01:00 Diltiazem 125 mg Sodium Chloride 0.9% [Normal Saline] 100 ml IV ASDIRECTED Nitroglycerin/D5W [Nitroglycerin 25 MG/D5W 250 ML] 25 mg in 250 ml IV ASDIRECTED 07/01/17 01:49 EKG Documentation Completion [RC] STAT
[2017-07-01] MEDS ORDERED: Nitroglycerin/D5W 25 MG/250 ML BOTTLE IV SCH (01:00)
[2017-07-01] MEDS ORDERED: Diltiazem 125 MG in Sodium Chloride 0.9% 100 ML IV SCH (01:00)
[2017-07-01] MEDS ORDERED: Acetaminophen 325 MG Tab PO ONE (01:26)
[2017-07-01] MEDS ORDERED: LORazepam 0.5 MG Tab PO PRN (02:00)
[2017-07-01] MEDS ORDERED: Albuterol 0.083% 2.5 MG/3 ML Neb Soln NEB PRN (02:03)
[2017-07-01] MEDS ORDERED: LORazepam 2 MG/ML SDV IVPUSH PRN (02:06)
[2017-07-01] MEDS ORDERED: Promethazine 12.5 MG in Sodium Chloride 0.9% 50 ML IV PRN (02:06)
[2017-07-01] MEDS ORDERED: Acetaminophen/HYDROcodone 325-5 MG Tab PO PRN (02:06)
[2017-07-01] MEDS ORDERED: Docusate Sodium 100 MG Cap PO PRN (02:06)
[2017-07-01] MEDS ORDERED: Ondansetron 4 MG/2 ML SDV IV PRN (02:06)
[2017-07-01] MEDS ORDERED: Metoprolol Tartrate 5 MG/5 ML SDV IVPUSH PRN (02:06)
[2017-07-01] MEDS ORDERED: Polyethylene Glycol 3350 Powder 17 GM Packet PO PRN (02:06)
[2017-07-01] MEDS ORDERED: Bisacodyl 5 MG Tab PO PRN (02:06)
[2017-07-01] MEDS ORDERED: Temazepam 7.5 MG Cap PO PRN (02:06)
[2017-07-01] MEDS ORDERED: Magnesium Sulfate/Water 2 GM in Premix Bag 1 BAG IV ONE (02:12)
[2017-07-01] MEDS ORDERED: Sodium Chloride 0.9% 1,000 ML IV SCH (02:15)
--- NOTE | 2017-07-01 02:23 | PCM.HP ---
H&P History of Present Illness - General Date of Service: 07/01/17 Admit Problem/Dx: Admission Diagnosis/Problem Admission Diagnosis/Problem Acute pulmonary edema Source of Information: Patient, Old Records, Provider, RN Notes Reviewed History Limitations: Reports: Respiratory Distress - History of Present Illness Initial Comments - Free Text/Narative: This is a 71-year-old white female with past medical history of impaired vision , chronic atrial fibrillation on xarelto, heart failure with unknown EF, hyperlipidemia, hypertension, history of MD, dyspnea on exertion, COPD on 1 L nasal cannula, history of recurrent pneumonia, osteoarthritis, chronic vertigo, anxiety, who comes in for worsening heart palpitation for the last few days particularly this past Thursday. Her symptom was associated with shortness of breath with chest discomfort that prompted her to call for ambulance. When paramedics arrived, her heart rate was in the 220s appearing look like SVT therefore she received an adenosine and her heart rate came down to the 150s. Upon presentation to the emergency department, the patient was immediately put on Cardizem with nitroglycerin drip. She also received aspirin along with albuterol treatment before she was sent to the unit for further treatment Her initial workup in emergency department shows a CBC remarkable for WBC of 18.61, MCHC of 31.4, RDW of 20.7, neutrophils of 77%, and lymphocytes of 12%. Her chemistry is remarkable for chloride of 97, creatinine of 1.1, glucose of 142, magnesium 1.7, AST of 42, ALT of 66, CRP of 2.3, proBNP of 3923, and digoxin level of 0.8. Her chest x-ray shows emphysematous change and no acute abnormalities appreciated. Patient is being admitted for COPD exacerbation and atrial fibrillation with RVR. She is full code. - Related Data Allergies/Adverse Reactions: Allergies Allergy/AdvReac Type Severity Reaction Status Date / Time nicotine [From Nicoderm CQ] AdvReac Mild Rash Verified 07/01/17 00:48 metals Allergy Rash Uncoded 07/01/17 00:48 Home Medications: Home Meds Albuterol [Ventolin HFA] 2 puff INH Q4HR PRN 04/23/17 [History] Aspirin [Low Dose Aspirin EC] 81 mg PO DAILY 04/23/17 [History] LORazepam 0.5 mg PO BID PRN 04/23/17 [History] Norman-3 Fatty Acids/Fish Oil [Fish Oil 1,200 mg Softgel] 1 cap PO DAILY [History] Pravastatin Sodium 20 mg PO DAILY 04/23/17 [History] Psyllium Husk [Psyllium Fiber] 0.52 gm PO DAILY 04/23/17 [History] Rivaroxaban [Xarelto] 20 mg PO DAILY 04/23/17 [History] Tiotropium [Spiriva Handihaler] 1 cap INH DAILY 04/23/17 [History] Valsartan 40 mg PO DAILY 04/23/17 [History] Albuterol/Ipratropium [DuoNeb 3.0-0.5 MG/3 ML] 3 ml NEB QID #1 box 04/27/17 [Rx] Citalopram Hydrobromide [Celexa] 10 mg PO DAILY 04/27/17 [History] Furosemide [Lasix] 20 mg PO DAILY 04/27/17 [History] Metoprolol Tartrate [Lopressor] 50 mg PO Q12HR #60 tablet 04/27/17 [Rx] guaiFENesin [Mucinex] 1,200 mg PO BID #60 tab.er 04/27/17 [Rx] Prednisone [IJD: predniSONE] 20 mg PO BID #10 tab 05/24/17 [Rx] Albuterol [IJD: Albuterol] 2.5 mg NEB QID PRN 07/01/17 [History] B2/Vit A,C & E/Lut/Zeaxanth/Mn [Icaps] 2 cap PO DAILY 07/01/17 [History] Digoxin 125 mcg PO DAILY 07/01/17 [History] Past Medical History HEENT History: Reports: Impaired Vision, Macular Degeneration, Other (See Below) Other HEENT History: wears glasses Cardiovascular History: Reports: Afib (chronically it's unclear whether this his paroxysmal atrial fibrillation or chronic A. fib with aroxysmal worsening.) , Heart Failure, High Cholesterol, Hypertension, MD, SOB on Exertion Other Cardiovascular History: blood clot caused heart attack Respiratory History: Reports: COPD (sually on oxygen at 1 L/m during the nighttime and sometimes during the day.), Pneumonia, Recurrent Gastrointestinal History: Reports: Cholelithiasis, Hemorrhoids Genitourinary History: Reports: None SLATE PICKER History: Reports: None Musculoskeletal History: Reports: Arthritis Neurological History: Reports: Vertigo Psychiatric History: Reports: Anxiety Endocrine/Metabolic History: Reports: None Hematologic History: Reports: None Immunologic History: Reports: None Oncologic (Cancer) History: Reports: None Dermatologic History: Reports: None - Past Surgical History HEENT Surgical History: Reports: Cataract Surgery GI Surgical History: Reports: Appendectomy Female Surgical History: Reports: Tubal Ligation Endocrine Surgical History: Reports: None Neurological Surgical History: Reports: None Musculoskeletal Surgical History: Reports: Other (See Below) Other Musculoskeletal Surgeries/Procedures:: partial left knee replacement Oncologic Surgical History: Reports: None Dermatological Surgical History: Reports: None Social & Family History - Family History Family Medical History: Noncontributory - Tobacco Use Smoking Status *Q: Former Smoker Used Tobacco, but Quit: Yes Month/Year Tobacco Last Used: 2008 - Caffeine Use Caffeine Use: Reports: Coffee, Soda Other Caffeine Use: drinks decaffinated coffee - Recreational Drug Use Recreational Drug Use: No - Living Situation & Occupation Living situation: Reports: Occupation: Retired H&P Review of Systems - Review of Systems: Review Of Systems: See Below General: Reports: Malaise, Weakness, Fatigue, Decreased Appetite. Denies: Fever , Chills HEENT: Reports: No Symptoms Pulmonary: Reports: Shortness of Breath, Cough, Sputum Cardiovascular: Reports: Chest Pain, Palpitations, Dyspnea on Exertion. Denies : Orthopnea, Lightheadedness, Syncope, Blood Pressure Problem Gastrointestinal: Reports: Constipation. Denies: Abdominal Pain, Nausea, Vomiting Genitourinary: Reports: Incontinence Musculoskeletal: Reports: Back Pain, Joint Pain. Denies: Muscle Stiffness Skin: Reports: Bruising. Denies: Cyanosis, Mottled, Pallor, Diaphoresis Psychiatric: Reports: Anxiety. Denies: Confusion, Depression, Mood Lability, Agitation, Hallucinations Neurological: Reports: Difficulty Walking. Denies: Dizziness, Headache, Syncope , Weakness, Gait Disturbance Hematologic/Lymphatic: Reports: No Symptoms Immunologic: Reports: No Symptoms Exam - Exam Exam: See Below - Vital Signs Vital Signs: Last Vital Signs Temp 36.1 C 07/01/17 00:48 Pulse 147 H 07/01/17 00:48 Resp 29 H 07/01/17 00:48 BP 205/149 H 07/01/17 00:48 Pulse Ox 100 07/01/17 00:48 Weight: 64.41 kg - Exam General: Alert, Cooperative, Severe Distress HEENT: Conjunctiva Clear, EACs Clear, Hearing Intact, Mucosa Moist & Chicken, Nares Patent, Normal Nasal Septum, Pupils Equal, Pupils Reactive Neck: Supple, Trachea Midline, +2 Carotid Pulse wo Bruit Lungs: Normal Respiratory Effort, Crackles, Rales, Rhonchi, Wheezing Cardiovascular: Irregular Rhythm, Other (Irregular Rate) GI/Abdominal Exam: Normal Bowel Sounds, Soft, Non-Tender, No Organomegaly, No Distention, No Abnormal Bruit (Female) Exam: Deferred Rectal (Female) Exam: Deferred Back Exam: Normal Inspection, Decreased Range of Motion Extremities: Normal Inspection, Normal Range of Motion, Non-Tender, No Pedal Edema, Normal Capillary Refill Peripheral Pulses: 2+: Posterior Tibial (L), Posterior Tibial (R), Dorsalis Pedis (L), Dorsalis Pedis (R) Skin: Warm, Cool, Other (cyanotic distal extremities) Neuro Extensive - Mental Status: Oriented x3, Normal Cognition, Memory Intact Neuro Extensive - Motor, Sensory, Reflexes: Other (deferred) Psychiatric: Normal Affect, Anxious. No: Suicidal Ideation, Withdrawal Symptoms - Patient Data Lab Results Last 24 hrs: Laboratory Results - last 24 hr 07/01/17 07/01/17 07/01/17 Range/Units 00:50 00:50 00:50 WBC 18.61 H (3.98-10.04) K/mm3 RBC 4.88 (3.98-5.22) M/mm3 Hgb 13.8 (11.2-15.7) gm/L Hct 43.9 (34.1-44.9) % MCV 90.0 (79.4-94.8) fl MCH 28.3 (25.6-32.2) pg MCHC 31.4 L (32.2-35.5) g/dl RDW Std Deviation 50.7 H (36.4-46.3) fL Plt Count 294 (182-369) K/mm3 MPV 10.4 (9.4-12.3) fl PT 12.5 H (9.5-12.1) SECONDS INR 1.15 Sodium 136 (136-145) mEq/L Potassium 3.9 (3.5-5.1) mEq/L Chloride 97 L (98-107) mEq/L Carbon Dioxide 32 (21-32) mEq/L Anion Gap 10.9 (5-15) BUN 17 (7-18) mg/dL Creatinine 1.1 H (0.55-1.02) mg/dL Est Cr Clr Drug Dosing 36.56 mL/min Estimated GFR (MDRD) 49 (>60) mL/min BUN/Creatinine Ratio 15.5 (14-18) Glucose 142 H (83-115) mg/dL Calcium 8.8 (8.5-10.1) mg/dL Magnesium 1.7 L (1.8-2.4) mg/dl Total Bilirubin 0.4 (0.2-1.0) mg/dL AST 42 H (15-37) U/L ALT 66 H (14-59) U/L Alkaline Phosphatase 84 (46-116) U/L CK-MB (CK-2) 2.4 (0-3.6) ng/ml Troponin I < 0.017 (0.00-0.056) ng/mL C-Reactive Protein 2.3 H* (<1.0) mg/dL NT-Pro-B Natriuret Pep (0-125) pg/mL Total Protein 7.3 (6.4-8.2) g/dl Albumin 3.8 (3.4-5.0) g/dl Globulin 3.5 gm/dL Albumin/Globulin Ratio 1.1 (1-2) 18 Range/Units 00:50 WBC (3.98-10.04) K/mm3 RBC (3.98-5.22) M/mm3 Hgb (11.2-15.7) gm/L Hct (34.1-44.9) % MCV (79.4-94.8) fl MCH (25.6-32.2) pg MCHC (32.2-35.5) g/dl RDW Std Deviation (36.4-46.3) fL Plt Count (182-369) K/mm3 MPV (9.4-12.3) fl PT (9.5-12.1) SECONDS INR Sodium (136-145) mEq/L Potassium (3.5-5.1) mEq/L Chloride (98-107) mEq/L Carbon Dioxide (21-32) mEq/L Anion Gap (5-15) BUN (7-18) mg/dL Creatinine (0.55-1.02) mg/dL Est Cr Clr Drug Dosing mL/min Estimated GFR (MDRD) (>60) mL/min BUN/Creatinine Ratio (14-18) Glucose (83-115) mg/dL Calcium (8.5-10.1) mg/dL Magnesium (1.8-2.4) mg/dl Total Bilirubin (0.2-1.0) mg/dL AST (15-37) U/L ALT (14-59) U/L Alkaline Phosphatase (46-116) U/L CK-MB (CK-2) (0-3.6) ng/ml Troponin I (0.00-0.056) ng/mL C-Reactive Protein (<1.0) mg/dL NT-Pro-B Natriuret Pep 3923 H (0-125) pg/mL Total Protein (6.4-8.2) g/dl Albumin (3.4-5.0) g/dl Globulin gm/dL Albumin/Globulin Ratio (1-2) Result Diagrams: 07/02/17 07:20 07/02/17 07:20 EKG INTERPRETATION EKG Date: 07/01/17 Time: 00:50 Rhythm: A-Fib Rate (Beats/Min): 158 [place]: Normal P-Wave: Absent QRS: Other ST-T: Depressed QT: Normal Problem List Initiated/Reviewed/Updated: Yes Orders Last 24hrs: Active Orders 24 hr Category Date Time Status Patient Status [ADT] Routine ADT 07/01/17 02:07 Active Cardiac Monitoring [RC] CONTINUOUS Care 07/01/17 02:07 Active EKG Documentation Completion [RC] STAT Care 07/01/17 00:58 Active EKG Documentation Completion [RC] STAT Care 07/01/17 01:49 Active Height and Weight [RC] DAILY Care 07/01/17 02:06 Active Intake and Output [RC] QSHIFT Care 07/01/17 02:07 Active Oxygen Therapy [RC] PRN Care 07/01/17 02:06 Active Peripheral IV Care [RC] . DIRECTED Care 07/01/17 00:59 Active Pulse Oximetry [RC] PRN Care 07/01/17 02:07 Active Up With Assistance [RC] ASDIRECTED Care 07/01/17 02:06 Active Up ad Marisol [RC] ASDIRECTED Care 07/01/17 02:06 Active VTE/DVT Education [RC] PER UNIT ROUTINE Care 07/01/17 02:06 Active Vital Signs [RC] Q4H Care 07/01/17 02:06 Active Consult to Case Management [CONS] Routine Cons 07/01/17 02:10 Active Consult to Kiln Worker [CONS] Routine Cons 07/01/17 02:10 Active Consult to Spiritual Care [CONS] Routine Cons 07/01/17 02:10 Active OT Evaluation and Treatment [CONS] Routine Cons 07/01/17 02:10 Active PT Evaluation and Treatment [CONS] Routine Cons 07/01/17 02:10 Active Respiratory Care Assess and Treatment [CONS] Routine Cons 07/01/17 02:10 Active Heart Healthy Diet [DIET] Diet 07/01/17 Breakfast Active Chest 1V Frontal [CR] Stat Exams 07/01/17 00:58 Taken BASIC METABOLIC PANEL,BMP [CHEM] AM Lab 07/01/17 05:11 Ordered BASIC METABOLIC PANEL,BMP [CHEM] AM Lab 07/02/17 05:11 Ordered BASIC METABOLIC PANEL,BMP [CHEM] AM Lab 07/03/17 05:11 Ordered BASIC METABOLIC PANEL,BMP [CHEM] AM Lab 07/04/17 05:11 Ordered BASIC METABOLIC PANEL,BMP [CHEM] AM Lab 07/05/17 05:11 Ordered C-REACTIVE PROTEIN [CHEM] AM Lab 07/01/17 05:11 Ordered CBC WITH AUTO DIFF [HEME] AM Lab 07/01/17 05:11 Ordered CBC WITH AUTO DIFF [HEME] AM Lab 07/02/17 05:11 Ordered CBC WITH AUTO DIFF [HEME] AM Lab 07/03/17 05:11 Ordered CBC WITH AUTO DIFF [HEME] AM Lab 07/04/17 05:11 Ordered CBC WITH AUTO DIFF [HEME] AM Lab 07/05/17 05:11 Ordered CBC WITH MANUAL DIFF [HEME] Stat Lab 07/01/17 00:50 Results DIGOXIN [CHEM] Stat Lab 07/01/17 01:02 Received MAGNESIUM [CHEM] AM Lab 07/01/17 05:11 Ordered MAGNESIUM [CHEM] AM Lab 07/02/17 05:11 Ordered MAGNESIUM [CHEM] AM Lab 07/03/17 05:11 Ordered MAGNESIUM [CHEM] AM Lab 07/04/17 05:11 Ordered MAGNESIUM [CHEM] AM Lab 07/05/17 05:11 Ordered T4 FREE [CHEM] Stat Lab 07/01/17 01:02 Received TSH [CHEM] Stat Lab 07/01/17 01:02 Received Acetaminophen [Tylenol] Med 07/01/17 02:06 Ordered 650 mg PO Q4H PRN Acetaminophen/HYDROcodone [Park 325-5 MG] Med 07/01/17 02:06 Ordered 1 tab PO Q4H PRN Albuterol Med 07/01/17 02:03 Ordered 2.5 mg NEB QID PRN Albuterol/Ipratropium [DuoNeb 3.0-0.5 MG/3 ML] Med 07/01/17 06:00 Active 3 ml NEB QIDRT Aspirin [Halfprin] Med 07/01/17 09:00 Pending 81 mg PO DAILY B2/Vit A,C & E/Lut/Zeaxanth/Mn [Icaps] Med 07/01/17 09:00 Ordered 2 cap PO DAILY Bisacodyl [Dulcolax] Med 07/01/17 02:06 Ordered 5 mg PO DAILY PRN Citalopram [Celexa] Med 07/01/17 09:00 Ordered 10 mg PO DAILY Digoxin [Lanoxin] Med 07/01/17 09:00 Ordered 125 mcg PO DAILY Diltiazem 125 mg Med 07/01/17 01:00 Active Sodium Chloride 0.9% [Normal Saline] 100 ml IV ASDIRECTED Docusate Sodium [Colace] Med 07/01/17 02:06 Ordered 100 mg PO BID PRN Docusate Sodium/Sennosides [Senna Plus] Med 07/01/17 02:06 Ordered 1 tab PO BID PRN Furosemide [Lasix] Med 07/01/17 09:00 Active 20 mg PO DAILY LORazepam [Ativan] Med 07/01/17 02:06 Ordered 0.5 mg IV Q6H PRN LORazepam [Ativan] Med 07/01/17 02:00 Active 0.5 mg PO BID PRN LORazepam [Ativan] Med 07/01/17 02:06 Ordered 2 mg IVPUSH Q4H PRN Magnesium Rep Pharmacy to Dose [Pharmacy to Dose - Med 07/01/17 02:15 Ordered Magnesium Replacement] 1 dose .XX ASDIRECTED Magnesium Sulfate/Water [Magnesium Sulfate 2 GM in Med 07/01/17 02:12 Ordered Water 50 ML] 2 gm Premix Bag 1 bag IV ONETIME Metoprolol Tartrate [Lopressor] Med 07/01/17 02:06 Ordered 5 mg IVPUSH Q4H PRN Metoprolol Tartrate [Lopressor] Med 07/01/17 09:00 Active 50 mg PO Q12HR Morphine Med 07/01/17 02:06 Ordered 1 mg IVPUSH Q2H PRN Nitroglycerin/D5W [Nitroglycerin 25 MG/D5W 250 ML] Med 07/01/17 01:00 Active 25 mg in 250 ml IV ASDIRECTED Norman-3 Fatty Acids/Fish Oil [Fish Oil 1,200 mg Softgel Med 07/01/17 09:00 Ordered ] 1 cap PO DAILY Ondansetron [Zofran] Med 07/01/17 02:06 Ordered 4 mg IV Q6H PRN Polyethylene Glycol 3350 [MiraLAX] Med 07/01/17 02:06 Ordered 17 gm PO DAILY PRN Potassium Rep Pharmacy to Dose [Pharmacy to Dose - Med 07/01/17 02:15 Ordered Potassium Replacement] 1 dose .XX ASDIRECTED Pravastatin Med 07/01/17 09:00 Ordered 20 mg PO DAILY Promethazine [Phenergan] 12.5 mg Med 07/01/17 02:06 Ordered Sodium Chloride 0.9% [Normal Saline] 50 ml IV Q6H Rivaroxaban [Xarelto] Med 07/01/17 09:00 Ordered 20 mg PO DAILY Sodium Chloride 0.9% [Normal Saline] 1,000 ml Med 07/01/17 02:15 Ordered IV ASDIRECTED Sodium Chloride 0.9% [Saline Flush] Med 07/01/17 00:58 Active 10 ml FLUSH ASDIRECTED PRN Temazepam [Restoril] Med 07/01/17 02:06 Ordered 7.5 mg PO BEDTIME PRN Tiotropium Med 07/01/17 09:00 Ordered 1 cap INH DAILY Valsartan [Valsartan] Med 07/01/17 09:00 Ordered 40 mg PO DAILY guaiFENesin [Mucinex] Med 07/01/17 09:00 Ordered 1,200 mg PO BID hydrALAZINE [Apresoline] Med 07/01/17 02:06 Ordered 20 mg IVPUSH Q4H PRN predniSONE Med 07/01/17 09:00 Ordered 20 mg PO BID Peripheral IV Insertion Adult [OM.PC] Stat Oth 07/01/17 00:58 Ordered Resuscitation Status Routine Resus Stat 07/01/17 02:06 Ordered Medication Orders Acetaminophen (Tylenol) 650 mg PO Q4H PRN PRN Reason: Pain (Mild 1-3)/fever Hydrocodone Bitart/Acetaminophen (Park 325-5 Mg) 1 tab PO Q4H PRN PRN Reason: Pain (moderate 4-6) Albuterol/Ipratropium (Duoneb 3.0-0.5 Mg/3 Ml) 3 ml NEB QIDRT [facility] Aspirin (Halfprin) 81 mg PO DAILY [facility] Bisacodyl (Dulcolax) 5 mg PO DAILY PRN PRN Reason: Constipation Citalopram Hydrobromide (Celexa) 10 mg PO DAILY [facility] Digoxin (Lanoxin) 125 mcg PO DAILY [facility] Docusate Sodium (Colace) 100 mg PO BID PRN PRN Reason: Constipation Furosemide (Lasix) 20 mg PO DAILY [facility] Guaifenesin (Mucinex) 1,200 mg PO BID [facility] Hydralazine HCl (Apresoline) 20 mg IVPUSH Q4H PRN PRN Reason: Hypertension Diltiazem HCl 125 mg/ Sodium (Chloride) 125 mls @ 10 mls/hr IV ASDIRECTED [facility] Last Admin: 07/01/17 01:06 Dose: 10 mg/hr, 10 mls/hr Nitroglycerin/Dextrose (Nitroglycerin 25 Mg/D5w 250 Ml) 25 mg in 250 mls @ 6 mls/hr IV ASDIRECTED [facility] Last Admin: 07/01/17 01:23 Dose: 10 mcg/min, 6 mls/hr Promethazine HCl 12.5 mg/ (Sodium Chloride) 50.5 mls @ 100 mls/hr IV Q6H PRN PRN Reason: Nausea/Vomiting Sodium Chloride (Normal Saline) 1,000 mls @ 75 mls/hr IV ASDIRECTED [facility] Magnesium Sulfate 2 gm/ Premix 50 mls @ 25 mls/hr IV ONETIME ONE Stop: 07/01/17 04:11 Lorazepam (Ativan) 0.5 mg PO BID PRN PRN Reason: Anxiety Lorazepam (Ativan) 2 mg IVPUSH Q4H PRN PRN Reason: Seizures Lorazepam (Ativan) 0.5 mg IV Q6H PRN PRN Reason: Anxiety Magnesium Sulfate (Pharmacy To Dose - Magnesium Replacement) 1 dose .XX ASDIRECTED [facility] Metoprolol Tartrate (Lopressor) 50 mg PO Q12HR [facility] Metoprolol Tartrate (Lopressor) 5 mg IVPUSH Q4H PRN PRN Reason: Tachycardia Morphine Sulfate (Morphine) 1 mg IVPUSH Q2H PRN PRN Reason: Other Stop: 07/02/17 02:09 Non-Formulary Medication (Albuterol) 2.5 mg NEB QID PRN PRN Reason: SOB/Wheezing Non-Formulary Medication (B2/Vit A,C & E/Lut/Zeaxanth/Mn [Icaps]) 2 cap PO DAILY [facility] Non-Formulary Medication (Norman-3 Fatty Acids/Fish Oil [Fish Oil 1,200 Mg Softgel]) 1 cap PO DAILY [facility] Non-Formulary Medication (Pravastatin) 20 mg PO DAILY [facility] Non-Formulary Medication (Prednisone) 20 mg PO BID [facility] Non-Formulary Medication (Rivaroxaban [Xarelto]) 20 mg PO DAILY [facility] Non-Formulary Medication (Tiotropium) 1 cap INH DAILY [facility] Non-Formulary Medication (Valsartan [Valsartan]) 40 mg PO DAILY [facility] Ondansetron HCl (Zofran) 4 mg IV Q6H PRN PRN Reason: Nausea/Vomiting Polyethylene Glycol (Miralax) 17 gm PO DAILY PRN PRN Reason: Constipation Potassium Chloride (Pharmacy To Dose - Potassium Replacement) 1 dose .XX ASDIRECTED [facility] Senna/Docusate Sodium (Senna Plus) 1 tab PO BID PRN PRN Reason: Constipation Sodium Chloride (Saline Flush) 10 ml FLUSH ASDIRECTED PRN PRN Reason: Keep Vein Open Last Admin: 07/01/17 01:46 Dose: 10 ml Temazepam (Restoril) 7.5 mg PO BEDTIME PRN PRN Reason: Sleep Assessment/Plan Comment:: Assessment/Plan: Acute: Afib with RVR - HR in 140s - Thyroid panel - Cardizem drip; titrate to keep HR < 100 - Continue BB and Digoxin - Stroke PPx: Xarelto COPD Exacerbation - Has baseline Mod-Severe COPD - Steroids/Bronchodilators/IV Magnesium/ Malignant HTN - BP 205/149 mmHg - Resume BP medications - She is now on Cardizem drip Congestive Heart Failure - Unknown EF - ProBNP 3923 - Likely induced by atrial fibrillation - Heart failure protocol - Will obtain 2D echo from her director of epidemiology in [place] Hypomagnesemia - 2/2 inadequate intake - Mg 1.7 - Replete and monitor Chronic: HTN HLD Advanced COPD Anxiety Hx/o MD Plan: Admit to ICU Resume Home Meds Routine AM Labs Thyroid and Digoxin Level PT/OT/RT consult DVT/GI PPx: Xarelto and H2B SW/CM for d/c planning Code status:1 Additional orders as above
[2017-07-01] MEDS: Morphine 2 MG/ML Syringe IVPUSH PRN ×3 (02:41→11:09)
[2017-07-01] MEDS: LORazepam 2 MG/ML SDV IV PRN (03:52)
[2017-07-01] MEDS ORDERED: Albuterol/Ipratropium 3.0-0.5 MG/3 ML Neb Soln NEB SCH (06:00)
--- NOTE | 2017-07-01 07:03 | PCM.SN ---
- Free Text/Narrative Note: Patient seen and examined at bedside. She seems a little better than earlier this morning. Her heart rate is much more controlled. However she looks tired and not well rested.
--- NOTE | 2017-07-01 07:55 | CR ---
Chest: Portable view of the chest was obtained. Comparison: Prior chest x-ray of 05/24/17. Heart size and mediastinum are within normal limits for portable technique. Lungs are hyperinflated suggesting emphysematous change. No acute parenchymal change is seen. Bony structures are osteopenic. Impression: 1. Probable emphysematous change. Nothing acute is otherwise seen on portable chest x-ray. Diagnostic code #2
[2017-07-01] MEDS: Multivitamins with Minerals/Folic Acid/Lutein/Zeaxanth Tab PO SCH ×2 (08:53→09:51)
[2017-07-01] MEDS: guaiFENesin 600 MG Tab.ER PO SCH ×3 (08:54→21:04)
[2017-07-01] MEDS: Furosemide 20 MG Tab PO SCH (08:54)
[2017-07-01] MEDS: Fish Oil/Omega-3 Fatty Acids 1 Gm Cap PO SCH ×2 (08:56→09:51)
[2017-07-01] MEDS: Citalopram 10 MG Tab PO SCH (08:56)
[2017-07-01] MEDS: Famotidine 20 MG Tab PO SCH (08:57)
[2017-07-01] MEDS: Rivaroxaban 10 MG Tab PO SCH (08:57)
[2017-07-01] MEDS: Losartan 25 MG Tab PO SCH (08:57)
[2017-07-01] MEDS: Aspirin 81 MG Tab.EC PO SCH (08:57)
[2017-07-01] MEDS ORDERED: Potassium Chloride 20 MEQ Tab.ER PO ONE (09:00)
[2017-07-01] MEDS ORDERED: Metoprolol Tartrate 50 MG Tab PO SCH (09:00)
[2017-07-01] MEDS ORDERED: Tiotropium Inhaler 18 MCG Inhalation Powder Cap Kit of 5 INH SCH (09:00)
[2017-07-01] MEDS ORDERED: predniSONE 20 MG Tab PO SCH (09:00)
[2017-07-01] MEDS ORDERED: methylPREDNISolone Sodium Succinate 125 MG/2 ML SDV IVPUSH ONE (09:00)
[2017-07-01] MEDS ORDERED: Levalbuterol HCl 1.25 MG/3 ML Neb NEB PRN (09:02)
[2017-07-01] MEDS ORDERED: Tiotropium Inhaler 18 MCG Inhalation Powder Cap Kit of 5 INH PRN (09:05)
[2017-07-01] MEDS: Metoprolol Tartrate 25 MG Tab PO SCH ×2 (09:15→21:04)
[2017-07-01] MEDS: Levalbuterol HCl 1.25 MG/3 ML Neb NEB SCH ×3 (09:35→22:00)
[2017-07-01] MEDS ORDERED: Digoxin 125 MCG Tab PO SCH (12:00)
[2017-07-01] MEDS ORDERED: Digoxin 250 MCG Tab PO SCH (12:00)
--- NOTE | 2017-07-01 12:14 | PCM.SN ---
- Free Text/Narrative Note: Patient not doing well. She is altered and not sating in the 60s. Her ABG shows pH of 7.19, pCO2 95.4 and pO2 of 127 on 98.3%. Patient just received 1 mg IVP Morphine about an hour ago for dyspnea. Will go ahead and try BiPAP and Narcan, if not improvement--> immediate intubation.
[2017-07-01] MEDS ORDERED: Digoxin 500 MCG/2 ML Amp IVPUSH ONE (12:30)
[2017-07-01] MEDS ORDERED: Naloxone 0.4 MG/ML SDV IVPUSH ONE ×2 (12:30)
[2017-07-01] MEDS ORDERED: Midazolam 1 MG/ML 5 ML SDV IVPUSH ONE ×2 (13:06→15:19)
[2017-07-01] MEDS ORDERED: Rocuronium 50 MG/5 ML Vial IVPUSH ONE (13:07)
[2017-07-01] MEDS ORDERED: Etomidate 2 MG/ML 20 ML SDV IVPUSH ONE (13:08)
--- NOTE | 2017-07-01 13:41 | PCM.PRNOTE ---
<Doc Martinez - Last Filed: 07/01/17 14:29> - Free Text/Narrative Note: Date: 07/01/17 Procedure Preformed: Orotracheal intubation Primary: Doc Martinez PA-C Application Development Liaison: Dr. Magallanes Tube size: 7.5mm Pre-procedural sedation: 5mg versed; 40mg Rocuroium, 20mg Etomidate Procedure: Equipment was prepped and all was found to be in working order. Patient was placed in standard supine position and pre-oxygenated utilizing Bi- PAP mask. Pre-procedural sedation was given and patient was noted to have absent reflexes. Mouth was opened and glide-scope was inserted utilizing caution to avoid patients dentures. Vocal cords were visualized and tube was passed without difficulty. Tube was inflated. Bilateral breath sounds were noted and breath sounds were absent over epigastrium. Tube was secured - 28 at the lips. Colorimetric CO2 detector confirmed placement. CXR noted tube was deep - in right mainstem bronchus. Tube was retracted to 25 at the lips. Repeat CXR confirmed placement above the adria. Lung sounds equal bilateral, absent over epigastrium after re-positioning tube. Waveform capnogaphy applied with good pattern. Ventilator applied by RT. Patient tolerated the procedure well. Post-procedural sedation: Propofol titrated to effect starting at 5mcg. <Juanjo Betancourt - Last Filed: 07/01/17 18:37> - Free Text/Narrative Note: Procedure performed: Endotracheal Intubation
--- NOTE | 2017-07-01 13:59 | CR ---
Chest: Portable view of the chest was obtained. Comparison: Prior chest x-ray performed earlier on the same day (1:18 AM). Heart size is slightly enlarged but accentuated from portable technique. Mild tortuosity of the thoracic aorta is seen. Probable emphysematous change is again noted. Lungs otherwise are clear. Nasogastric tube is seen slightly coiled within the stomach. Endotracheal tube is seen with tip lying approximately 3 cm above the adria. Impression: 1. Endotracheal tube and nasogastric tube as noted above. 2. Probable emphysematous change. 3. Nothing acute is otherwise seen. Diagnostic code #3
[2017-07-01] MEDS ORDERED: fentaNYL 2,500 MCG in Sodium Chloride 0.9% 200 ML IV SCH ×2 (14:15→23:45)
[2017-07-01] MEDS ORDERED: Midazolam 1 MG/ML 2 ML SDV ONE (15:16)
[2017-07-01] MEDS ORDERED: Midazolam 1 MG/ML 2 ML SDV IVPUSH ONE (15:19)
[2017-07-01] MEDS: methylPREDNISolone Sodium Succinate 40 MG/1 ML SDV IVPUSH SCH (16:57)
[2017-07-01] MEDS: hydrALAZINE 20 MG/ML SDV IVPUSH PRN (16:57)
[2017-07-01] MEDS: Dextrose 5%-0.9% NaCl 1,000 ML IV SCH (16:58)
[2017-07-01] MEDS: Pantoprazole 40 MG Vial IVPUSH SCH (21:04)
[2017-07-01] MEDS: Simvastatin 10 MG Tab PO SCH (21:06)
[2017-07-02] MEDS: methylPREDNISolone Sodium Succinate 40 MG/1 ML SDV IVPUSH SCH ×3 (01:31→16:52)
[2017-07-02] MEDS: Levalbuterol HCl 1.25 MG/3 ML Neb NEB SCH ×3 (06:00→22:03)
[2017-07-02] MEDS: Tiotropium Inhaler 18 MCG Inhalation Powder Cap Kit of 5 INH SCH (06:01)
[2017-07-02] MEDS: Dextrose 5%-0.9% NaCl 1,000 ML IV SCH ×2 (06:08→19:23)
--- NOTE | 2017-07-02 07:49 | PCM.PN ---
- General Info Date of Service: 07/02/17 Admission Dx/Problem (Free Text): Admission Diagnosis/Problem Admission Diagnosis/Problem Acute pulmonary edema Subjective Update: Follow Up Functional Status: Reports: Pain Controlled, Urinating. Denies: New Symptoms - Review of Systems General: Denies: Fever, Chills HEENT: Reports: No Symptoms Pulmonary: Reports: No Symptoms Gastrointestinal: Denies: Vomiting Skin: Denies: Cyanosis Systems Review Comment:: Patient is sedated and intubated on mechanical ventilation - Patient Data Vitals - Most Recent: Last Vital Signs Temp 37.0 C 07/02/17 04:00 Pulse 74 07/02/17 07:00 Resp 16 07/02/17 07:00 BP 143/76 H 07/02/17 07:00 Pulse Ox 100 07/02/17 07:00 Weight - Most Recent: 66.587 kg I&O - Last 24 Hours: Intake & Output 07/01/17 07/02/17 07/02/17 22:59 06:59 14:59 Intake Total 1101 888 Output Total 1340 855 Balance -239 33 Lab Results Last 24 Hours: Laboratory Results - last 24 hr 07/01/17 07/01/17 07/01/17 Range/Units 05:35 05:35 11:59 WBC (3.98-10.04) K/mm3 RBC (3.98-5.22) M/mm3 Hgb (11.2-15.7) gm/L Hct (34.1-44.9) % MCV (79.4-94.8) fl MCH (25.6-32.2) pg MCHC (32.2-35.5) g/dl RDW Std Deviation (36.4-46.3) fL Plt Count (182-369) K/mm3 MPV (9.4-12.3) fl Neut % (Auto) (34.0-71.1) % Lymph % (Auto) (19.3-51.7) % [place] % (Auto) (4.7-12.5) % Eos % (Auto) (0.7-5.8) Baso % (Auto) (0.1-1.2) % Neut # (Auto) (1.56-6.13) K/mm3 Lymph # (Auto) (1.18-3.74) K/mm3 [place] # (Auto) (0.24-0.36) K/mm3 Eos # (Auto) (0.04-0.36) K/mm3 Baso # (Auto) (0.01-0.08) K/mm3 Manual Slide Review Abnormal smear Puncture Site Rt radial ABG pH 7.19 L* (7.35-7.45) ABG pCO2 95.4 H* (35.0-45.0) mmHg ABG pO2 127.0 H (80.0-100.0) mmHg ABG HCO3 34.6 H (22.0-26.0) meq/L ABG O2 Saturation 98.3 H (96.0-97.0) % ABG Base Excess 3.4 H (-2-2.0) A-a Gradient mmHg O2 Delivery Device Nasal cannula Oxygen Flow Rate 4.0 FiO2 36.00 (21.00-100.00) % Tidal Volume cc PEEP cmH20 Sodium 134 L (136-145) mEq/L Potassium 3.3 L (3.5-5.1) mEq/L Chloride 95 L (98-107) mEq/L Carbon Dioxide 32 (21-32) mEq/L Anion Gap 10.3 (5-15) BUN 15 (7-18) mg/dL Creatinine 0.9 (0.55-1.02) mg/dL Est Cr Clr Drug Dosing 44.69 mL/min Estimated GFR (MDRD) > 60 (>60) mL/min BUN/Creatinine Ratio 16.7 (14-18) Glucose 132 H (83-115) mg/dL POC Glucose (83-110) mg/dL Calcium 8.4 L (8.5-10.1) mg/dL Magnesium 2.3 (1.8-2.4) mg/dl C-Reactive Protein 1.9 H* (<1.0) mg/dL 07/01/17 07/01/17 07/02/17 Range/Units 13:45 16:00 01:40 WBC (3.98-10.04) K/mm3 RBC (3.98-5.22) M/mm3 Hgb (11.2-15.7) gm/L Hct (34.1-44.9) % MCV (79.4-94.8) fl MCH (25.6-32.2) pg MCHC (32.2-35.5) g/dl RDW Std Deviation (36.4-46.3) fL Plt Count (182-369) K/mm3 MPV (9.4-12.3) fl Neut % (Auto) (34.0-71.1) % Lymph % (Auto) (19.3-51.7) % [place] % (Auto) (4.7-12.5) % Eos % (Auto) (0.7-5.8) Baso % (Auto) (0.1-1.2) % Neut # (Auto) (1.56-6.13) K/mm3 Lymph # (Auto) (1.18-3.74) K/mm3 [place] # (Auto) (0.24-0.36) K/mm3 Eos # (Auto) (0.04-0.36) K/mm3 Baso # (Auto) (0.01-0.08) K/mm3 Manual Slide Review Puncture Site Lt radial A-line ABG pH 7.31 L 7.35 (7.35-7.45) ABG pCO2 62.8 H 58.0 H (35.0-45.0) mmHg ABG pO2 72.0 L 66.0 L (80.0-100.0) mmHg ABG HCO3 30.7 H 31.0 H (22.0-26.0) meq/L ABG O2 Saturation 94.3 L 93.9 L (96.0-97.0) % ABG Base Excess 3.4 H 4.4 H (-2-2.0) A-a Gradient 29 40 mmHg O2 Delivery Device Ventilator Ventilator Oxygen Flow Rate FiO2 28.00 28.00 (21.00-100.00) % Tidal Volume 500.0 450.0 cc PEEP 5.0 5.0 cmH20 Sodium (136-145) mEq/L Potassium (3.5-5.1) mEq/L Chloride (98-107) mEq/L Carbon Dioxide (21-32) mEq/L Anion Gap (5-15) BUN (7-18) mg/dL Creatinine (0.55-1.02) mg/dL Est Cr Clr Drug Dosing mL/min Estimated GFR (MDRD) (>60) mL/min BUN/Creatinine Ratio (14-18) Glucose (83-115) mg/dL POC Glucose 157 H (83-110) mg/dL Calcium (8.5-10.1) mg/dL Magnesium (1.8-2.4) mg/dl C-Reactive Protein (<1.0) mg/dL 07/02/17 07/02/17 07/02/17 Range/Units 06:49 07:09 07:20 WBC 8.22 (3.98-10.04) K/mm3 RBC 4.51 (3.98-5.22) M/mm3 Hgb 12.7 (11.2-15.7) gm/L Hct 41.0 (34.1-44.9) % MCV 90.9 (79.4-94.8) fl MCH 28.2 (25.6-32.2) pg MCHC 31.0 L (32.2-35.5) g/dl RDW Std Deviation 51.6 H (36.4-46.3) fL Plt Count 219 (182-369) K/mm3 MPV 10.1 (9.4-12.3) fl Neut % (Auto) 79.9 H (34.0-71.1) % Lymph % (Auto) 11.8 L (19.3-51.7) % [place] % (Auto) 8.0 (4.7-12.5) % Eos % (Auto) 0 L (0.7-5.8) Baso % (Auto) 0.1 (0.1-1.2) % Neut # (Auto) 6.56 H (1.56-6.13) K/mm3 Lymph # (Auto) 0.97 L (1.18-3.74) K/mm3 [place] # (Auto) 0.66 H (0.24-0.36) K/mm3 Eos # (Auto) 0.00 L (0.04-0.36) K/mm3 Baso # (Auto) 0.01 (0.01-0.08) K/mm3 Manual Slide Review Puncture Site A-line ABG pH 7.45 (7.35-7.45) ABG pCO2 47.5 H (35.0-45.0) mmHg ABG pO2 68.0 L (80.0-100.0) mmHg ABG HCO3 32.3 H (22.0-26.0) meq/L ABG O2 Saturation 94.8 L (96.0-97.0) % ABG Base Excess 7.5 H (-2-2.0) A-a Gradient 77 mmHg O2 Delivery Device Ventilator Oxygen Flow Rate FiO2 32.00 (21.00-100.00) % Tidal Volume 450.0 cc PEEP 5.0 cmH20 Sodium (136-145) mEq/L Potassium (3.5-5.1) mEq/L Chloride (98-107) mEq/L Carbon Dioxide (21-32) mEq/L Anion Gap (5-15) BUN (7-18) mg/dL Creatinine (0.55-1.02) mg/dL Est Cr Clr Drug Dosing mL/min Estimated GFR (MDRD) (>60) mL/min BUN/Creatinine Ratio (14-18) Glucose (83-115) mg/dL POC Glucose 159 H (83-110) mg/dL Calcium (8.5-10.1) mg/dL Magnesium (1.8-2.4) mg/dl C-Reactive Protein (<1.0) mg/dL Med Orders - Current: Current Medications Acetaminophen (Tylenol) 650 mg PO Q4H PRN PRN Reason: Pain (Mild 1-3)/fever Hydrocodone Bitart/Acetaminophen ([place] 325-5 Mg) 1 tab PO Q4H PRN PRN Reason: Pain (moderate 4-6) Aspirin (Halfprin) 81 mg PO DAILY [facility] Last Admin: 07/01/17 08:57 Dose: 81 mg Bisacodyl (Dulcolax) 5 mg PO DAILY PRN PRN Reason: Constipation Citalopram Hydrobromide (Celexa) 10 mg PO DAILY [facility] Last Admin: 07/01/17 08:56 Dose: 10 mg Digoxin (Lanoxin) 125 mcg IVPUSH DAILY@1200 [facility] Docusate Sodium (Colace) 100 mg PO BID PRN PRN Reason: Constipation Famotidine (Pepcid) 20 mg PO DAILY [facility] Last Admin: 07/01/17 08:57 Dose: 20 mg Fish Oil (Fish Oil) 1 gm PO DAILY [facility] Last Admin: 07/01/17 09:51 Dose: Not Given Furosemide (Lasix) 20 mg PO DAILY [facility] Last Admin: 07/01/17 08:54 Dose: 20 mg Guaifenesin (Mucinex) 1,200 mg PO BID [facility] Last Admin: 07/01/17 21:04 Dose: Not Given Hydralazine HCl (Apresoline) 20 mg IVPUSH Q4H PRN PRN Reason: Hypertension Last Admin: 07/01/17 16:57 Dose: 20 mg Promethazine HCl 12.5 mg/ (Sodium Chloride) 50.5 mls @ 100 mls/hr IV Q6H PRN PRN Reason: Nausea/Vomiting Propofol (Diprivan 100 Ml) 100 mls @ 1.935 mls/hr IV TITRATE [facility]; Protocol Last Titration: 07/02/17 06:09 Dose: 45 mcg/kg/min, 17.415 mls/hr Dextrose/Sodium Chloride (Dextrose 5%-Normal Saline) 1,000 mls @ 75 mls/hr IV ASDIRECTED [facility] Last Admin: 07/02/17 06:08 Dose: 75 mls/hr Fentanyl 2,500 mcg/ Sodium (Chloride) 250 mls @ 1 mls/hr IV TITRATE [facility]; Protocol Last Titration: 07/02/17 01:15 Dose: 15 mcg/hr, 1.5 mls/hr Levalbuterol HCl (Xopenex) 1.25 mg NEB Q4HRRT PRN PRN Reason: Shortness of Breath Levalbuterol HCl (Xopenex) 1.25 mg NEB Q8HR [facility] Last Admin: 07/02/17 06:00 Dose: 1.25 mg Lorazepam (Ativan) 0.5 mg PO BID PRN PRN Reason: Anxiety Last Admin: 07/01/17 08:51 Dose: 0.5 mg Lorazepam (Ativan) 2 mg IVPUSH Q4H PRN PRN Reason: Seizures Lorazepam (Ativan) 0.5 mg IV Q6H PRN PRN Reason: Anxiety Last Admin: 07/01/17 03:52 Dose: 0.5 mg Losartan Potassium (Cozaar) 25 mg PO DAILY [facility] Last Admin: 07/01/17 08:57 Dose: 25 mg Magnesium Oxide (Magnesium Oxide) 400 mg PO BID [facility] Magnesium Sulfate (Pharmacy To Dose - Magnesium Replacement) 0 dose .XX ASDIRECTED PRN PRN Reason: RX TO WATCH MAG LEVELS Methylprednisolone Sodium Succinate (Solu-Medrol) 80 mg IVPUSH Q8H [facility] Last Admin: 07/02/17 01:31 Dose: 80 mg Metoprolol Tartrate (Lopressor) 5 mg IVPUSH Q4H PRN PRN Reason: Tachycardia Metoprolol Tartrate (Lopressor) 75 mg PO Q12HR [facility] Last Admin: 07/01/17 21:04 Dose: 75 mg Ondansetron HCl (Zofran) 4 mg IV Q6H PRN PRN Reason: Nausea/Vomiting Pantoprazole Sodium (Protonix Iv) 40 mg IVPUSH DAILY [facility] Last Admin: 07/01/17 21:04 Dose: 40 mg Polyethylene Glycol (Miralax) 17 gm PO DAILY PRN PRN Reason: Constipation Potassium Chloride (Pharmacy To Dose - Potassium Replacement) 0 dose .XX ASDIRECTED PRN PRN Reason: RX TO WATCH K LEVELS Rivaroxaban (Xarelto) 15 mg PO DAILY [facility] Last Admin: 07/01/17 08:57 Dose: 15 mg Senna/Docusate Sodium (Senna Plus) 1 tab PO BID PRN PRN Reason: Constipation Simvastatin (Zocor) 10 mg PO BEDTIME [facility] Last Admin: 07/01/17 21:06 Dose: 10 mg Sodium Chloride (Saline Flush) 10 ml FLUSH ASDIRECTED PRN PRN Reason: Keep Vein Open Last Admin: 07/01/17 01:46 Dose: 10 ml Temazepam (Restoril) 7.5 mg PO BEDTIME PRN PRN Reason: Sleep Tiotropium [place] (Spiriva Handihaler) 18 mcg INH DAILY@0600 [facility] Last Admin: 07/02/17 06:01 Dose: Not Given Vit A/Vit C/Vit E/Selen/Cu/Zn/Lutei (Icaps Mv) 2 tab PO DAILY [facility] Last Admin: 07/01/17 09:51 Dose: Not Given Discontinued Medications Acetaminophen (Tylenol) 975 mg PO NOW ONE Stop: 07/01/17 01:27 Last Admin: 07/01/17 01:46 Dose: 975 mg Adenosine (Adenocard) Confirm Administered Dose 12 mg .ROUTE .STK-MED ONE Stop: 07/01/17 00:39 Albuterol (Proventil Neb Soln) 2.5 mg NEB QID PRN PRN Reason: SOB/Wheezing Albuterol/Ipratropium (Duoneb 3.0-0.5 Mg/3 Ml) 3 ml NEB QIDRT [facility] Last Admin: 07/01/17 05:01 Dose: 3 ml Digoxin (Lanoxin) 125 mcg PO DAILY@1200 [facility] Digoxin (Lanoxin) 250 mcg PO DAILY@1200 [facility] Last Admin: 07/01/17 18:03 Dose: Not Given Digoxin (Lanoxin) 250 mcg IVPUSH ONETIME ONE Stop: 07/01/17 12:31 Last Admin: 07/01/17 12:36 Dose: 250 mcg Diltiazem HCl (Diltiazem) 10 mg IVPUSH ONETIME ONE Stop: 07/01/17 00:54 Last Admin: 07/01/17 00:56 Dose: 10 mg Etomidate (Amidate) 20 mg IVPUSH ONETIME ONE Stop: 07/01/17 13:09 Last Admin: 07/01/17 17:56 Dose: 20 mg Furosemide (Lasix) 40 mg IVPUSH NOW ONE Stop: 07/01/17 00:58 Last Admin: 07/01/17 01:10 Dose: 40 mg Furosemide (Lasix) 40 mg IVPUSH NOW ONE Stop: 07/01/17 16:47 Last Admin: 07/01/17 16:59 Dose: 40 mg Diltiazem HCl 125 mg/ Sodium (Chloride) 125 mls @ [facility] 07/01/17 10:17 Dose: 0 mg/hr, 0 mls/hr Nitroglycerin/Dextrose (Nitroglycerin 25 Mg/D5w 250 Ml) 25 mg in 250 mls @ 6 [facility]ls[facility] Last Infusion: 07/01/17 07:53 Dose: 0 mcg/min, 0 mls/hr Sodium Chloride (Normal Saline) 1,000 mls @ 75 mls/hr IV ASDIRECTED [facility] Last Admin: 07/01/17 02:48 Dose: 75 mls/hr Magnesium Sulfate 2 gm/ Premix 50 mls @ 25 mls/hr IV ONETIME ONE Stop: 07/01/17 04:11 Last Admin: 07/01/17 02:48 Dose: 25 mls/hr Propofol (Diprivan 100 Ml) Confirm Administered Dose 100 mls @ as directed .ROUTE .STK-MED ONE Stop: 07/01/17 12:56 Last Admin: 07/01/17 17:55 Dose: Not Given Fentanyl 2,500 mcg/ Sodium (Chloride) 250 mls @ 6.45 mls/hr IV TITRATE [facility]; Protocol Last Titration: 07/01/17 14:58 Dose: 1.55 mcg/kg/hr, 10 mls/hr Methylprednisolone Sodium Succinate (Solu-Medrol) 125 mg IVPUSH ONETIME ONE Stop: 07/01/17 09:01 Last Admin: 07/01/17 09:17 Dose: 125 mg Metoprolol Tartrate (Lopressor) 50 mg PO Q12HR [facility] Midazolam HCl (Versed 1 Mg/Ml) Confirm Administered Dose 6 mg .ROUTE .STK-MED ONE Stop: 07/01/17 15:17 Last Admin: 07/01/17 18:05 Dose: Not Given Midazolam HCl (Versed 1 Mg/Ml) 5 mg IVPUSH ONETIME ONE Stop: 07/01/17 13:07 Last Admin: 07/01/17 17:55 Dose: 5 mg Midazolam HCl (Versed 1 Mg/Ml) 5 mg IVPUSH ONETIME ONE Stop: 07/01/17 15:20 Last Admin: 07/01/17 18:07 Dose: Not Given Midazolam HCl (Versed 1 Mg/Ml) 5 mg IVPUSH ONETIME ONE Stop: 07/01/17 15:20 Last Admin: 07/01/17 15:19 Dose: 5 mg Morphine Sulfate (Morphine) 1 mg IVPUSH Q2H PRN PRN Reason: Other Stop: 07/02/17 02:09 Last Admin: 07/01/17 11:09 Dose: 1 mg Naloxone HCl (Narcan) 0.4 mg IVPUSH ONETIME ONE Stop: 07/01/17 12:31 Naloxone HCl (Narcan) 0.4 mg IVPUSH ONETIME ONE Stop: 07/01/17 12:31 Last Admin: 07/01/17 12:29 Dose: 0.4 mg Potassium Chloride (Klor-Con M20) 40 meq PO ONETIME ONE Stop: 07/01/17 09:01 Last Admin: 07/01/17 08:56 Dose: 40 meq Prednisone (Prednisone) 20 mg PO BID [facility] Rocuronium [place] (Zemuron) 40 mg IVPUSH ONETIME ONE Stop: 07/01/17 13:08 Last Admin: 07/01/17 17:55 Dose: 40 mg Tiotropium [place] (Spiriva Handihaler) 18 mcg INH DAILY [facility] Last Admin: 07/01/17 09:33 Dose: 1 cap Tiotropium [place] (Spiriva Handihaler) 18 mcg INH DAILY PRN PRN Reason: Shortness of Breath - Exam General: Sedated, Other (Respond to painful stimulation) HEENT: Pupils Equal, Pupils Reactive Neck: Supple Lungs: Normal Respiratory Effort, Wheezing, Other (mechanical breath sound) Cardiovascular: Irregular Rhythm GI/Abdominal Exam: Normal Bowel Sounds, Soft, Non-Tender, No Organomegaly, No Distention, No Abnormal Bruit (Female) Exam: Deferred Back Exam: Other (deferred) Extremities: Normal Inspection, Normal Range of Motion, Non-Tender, No Pedal Edema, Normal Capillary Refill Peripheral Pulses: 2+: Dorsalis Pedis (L), Dorsalis Pedis (R) Skin: Warm, Dry, Intact Neurological: No New Focal Deficit Psy/Mental Status: Other Physical Findings Comments:: Patient is sedated and intubated on mechanical ventilation. VASILE of negative 2 - Problem List Review Problem List Initiated/Reviewed/Updated: Yes - My Orders Last 24 Hours: My Active Orders 07/01/17 09:00 Aspirin [Halfprin] 81 mg PO DAILY Citalopram [Celexa] 10 mg PO DAILY Famotidine [Pepcid] 20 mg PO DAILY Fish Oil/Corn-3 Fatty Acids [Fish Oil] 1 gm PO DAILY Furosemide [Lasix] 20 mg PO DAILY Losartan [Cozaar] 25 mg PO DAILY Metoprolol Tartrate [Lopressor] 75 mg PO Q12HR Multivitamins/Min/FA/Lut/Zeax [ICaps MV] 2 tab PO DAILY Rivaroxaban [Xarelto] 15 mg PO DAILY guaiFENesin [Mucinex] 1,200 mg PO BID 07/01/17 09:02 Levalbuterol HCl [Xopenex] 1.25 mg NEB Q4HRRT PRN 07/01/17 09:03 RT Aerosol Therapy [RC] ASDIRECTED 07/01/17 09:45 Levalbuterol HCl [Xopenex] 1.25 mg NEB Q8HR 07/01/17 13:10 Propofol [Diprivan 100 ML] 100 ml IV TITRATE 07/01/17 13:50 Ventilator Assessment [RT Ventilator, Adult] [RC] ASDIRECTED 07/01/17 15:27 Arterial Line Insertion [OM.PC] Routine 07/01/17 15:43 Desired Level of Sedation (RASS) [AST] Click To Edit 07/01/17 16:00 methylPREDNISolone Sod Succ [Solu-MEDROL] 80 mg IVPUSH Q8H 07/01/17 17:00 Dextrose 5%-0.9% NaCl [Dextrose 5%-Normal Saline] 1,000 ml IV ASDIRECTED 07/01/17 20:45 Pantoprazole [ProTONIX IV] 40 mg IVPUSH DAILY 07/01/17 21:00 Simvastatin [Zocor] 10 mg PO BEDTIME 07/01/17 23:45 fentaNYL [Sublimaze] 2,500 mcg Sodium Chloride 0.9% [Normal Saline] 200 ml IV TITRATE 07/01/17 Dinner NPO [Nothing Per Oral Diet] [DIET] 07/02/17 00:00 Blood Glucose Check, Bedside [RC] Q6HR 07/02/17 06:00 Tiotropium [Spiriva HandiHaler] 18 mcg INH DAILY@0600 07/02/17 07:20 BASIC METABOLIC PANEL,BMP [CHEM] AM MAGNESIUM [CHEM] AM 07/02/17 09:00 Magnesium Oxide 400 mg PO BID 07/02/17 12:00 Digoxin [Lanoxin] 125 mcg IVPUSH DAILY@1200 07/03/17 05:11 BASIC METABOLIC PANEL,BMP [CHEM] AM CBC WITH AUTO DIFF [HEME] AM MAGNESIUM [CHEM] AM 07/04/17 05:11 BASIC METABOLIC PANEL,BMP [CHEM] AM CBC WITH AUTO DIFF [HEME] AM MAGNESIUM [CHEM] AM 07/05/17 05:11 BASIC METABOLIC PANEL,BMP [CHEM] AM CBC WITH AUTO DIFF [HEME] AM MAGNESIUM [CHEM] AM - Plan Plan:: Assessment/Plan: Acute: Acute Respiratory Failure - 2/2 COPD Exacerbation - On Mechanical Ventilation - ABG and CXR in AM - Possible extubation in AM COPD Exacerbation - Has baseline Mod-Severe COPD - Steroids/Bronchodilators/IV Magnesium/IV Azithromycin Congestive Heart Failure - ProBNP 3923; repeat level in AM - Likely induced by atrial fibrillation - Heart failure protocol - Latest 2D echo from [place]: LVEF 55-60% with Moderately reduced RV systolic function and Moderately dilated Left Atrium 04/20/2017 Resolved: S/p Hypomagnesemia - 2/2 inadequate intake - Mg 1.7 --> 1.8 - Replete and monitor S/p Afib with RVR - HR in 140s - Thyroid panel - Cardizem drip; titrate to keep HR < 100 - Continue BB and Digoxin - Stroke PPx: Xarelto S/p Malignant HTN, Improved - BP 205/149 mmHg - Resume BP medications - She is now on Cardizem drip Chronic: HTN HLD Advanced COPD Anxiety Hx/o GA Plan: She is much better hemodynamically Routine AM Labs Hold PT/OT DVT/GI PPx: Xarelto and H2B SW/CM for d/c planning Additional orders as above Code status:1 Possible extubation in AM
[2017-07-02] MEDS ORDERED: Modafinil 200 MG Tab PO ONE (08:00)
[2017-07-02] MEDS: Pantoprazole 40 MG Vial IVPUSH SCH (08:28)
[2017-07-02] MEDS: hydrALAZINE 20 MG/ML SDV IVPUSH PRN (08:30)
[2017-07-02] MEDS: Rivaroxaban 10 MG Tab PO SCH (08:34)
[2017-07-02] MEDS: Multivitamins with Minerals/Folic Acid/Lutein/Zeaxanth Tab PO SCH (08:36)
[2017-07-02] MEDS: Metoprolol Tartrate 25 MG Tab PO SCH ×2 (08:37→20:11)
[2017-07-02] MEDS: Losartan 25 MG Tab PO SCH (08:37)
[2017-07-02] MEDS: Famotidine 20 MG Tab PO SCH (08:37)
[2017-07-02] MEDS: Citalopram 10 MG Tab PO SCH (08:38)
[2017-07-02] MEDS: Aspirin 81 MG Tab.EC PO SCH (08:38)
[2017-07-02] MEDS: Furosemide 20 MG Tab PO SCH (08:38)
[2017-07-02] MEDS: Magnesium Oxide 400 MG Tab PO SCH ×2 (08:38→20:10)
[2017-07-02] MEDS: guaiFENesin 600 MG Tab.ER PO SCH ×2 (08:39→20:10)
[2017-07-02] MEDS: Fish Oil/Omega-3 Fatty Acids 1 Gm Cap PO SCH (09:24)
[2017-07-02] MEDS ORDERED: Digoxin 500 MCG/2 ML Amp IVPUSH SCH (12:00)
[2017-07-02] MEDS: Digoxin 125 MCG Tab PO SCH (12:10)
[2017-07-02] MEDS: Simvastatin 10 MG Tab PO SCH (20:10)
[2017-07-02] MEDS ORDERED: Azithromycin 500 MG in Sodium Chloride 0.9% 250 ML IV ONE (21:00)
[2017-07-02] MEDS ORDERED: Bumetanide 1 MG/4 ML MDV IVPUSH ONE (21:06)
[2017-07-03] MEDS: methylPREDNISolone Sodium Succinate 40 MG/1 ML SDV IVPUSH SCH ×4 (00:06→23:42)
[2017-07-03] MEDS: Tiotropium Inhaler 18 MCG Inhalation Powder Cap Kit of 5 INH SCH (06:24)
[2017-07-03] MEDS: Levalbuterol HCl 1.25 MG/3 ML Neb NEB SCH ×3 (06:26→22:05)
[2017-07-03] MEDS ORDERED: Bumetanide 1 MG/4 ML MDV IVPUSH ONE ×3 (07:00→19:59)
[2017-07-03] MEDS: hydrALAZINE 20 MG/ML SDV IVPUSH PRN ×2 (07:26→16:16)
--- NOTE | 2017-07-03 07:52 | PCM.PN ---
- General Info Date of Service: 07/03/17 Admission Dx/Problem (Free Text): Admission Diagnosis/Problem Admission Diagnosis/Problem Acute pulmonary edema Subjective Update: Follow Up Functional Status: Reports: Pain Controlled, Urinating. Denies: New Symptoms - Review of Systems General: Denies: Fever, Chills HEENT: Reports: No Symptoms Systems Review Comment:: No significant overnight or acute issues. She is still intubated on mechanical ventilation but slightly lightly sedated. She has good urine output. - Patient Data Vitals - Most Recent: Last Vital Signs Temp 36.6 C 07/03/17 04:00 Pulse 160 H 07/03/17 07:37 Resp 16 07/03/17 06:00 BP 188/80 H 07/03/17 07:37 Pulse Ox 95 07/03/17 06:00 Weight - Most Recent: 68.039 kg I&O - Last 24 Hours: Intake & Output 07/02/17 07/03/17 07/03/17 22:59 06:59 14:59 Intake Total 1161 1526 Output Total 295 904 Balance 866 622 Lab Results Last 24 Hours: Laboratory Results - last 24 hr 07/02/17 07/02/17 07/02/17 Range/Units 07:20 12:18 18:27 WBC (3.98-10.04) K/mm3 RBC (3.98-5.22) M/mm3 Hgb (11.2-15.7) gm/L Hct (34.1-44.9) % MCV (79.4-94.8) fl MCH (25.6-32.2) pg MCHC (32.2-35.5) g/dl RDW Std Deviation (36.4-46.3) fL Plt Count (182-369) K/mm3 MPV (9.4-12.3) fl Neut % (Auto) (34.0-71.1) % Lymph % (Auto) (19.3-51.7) % [place] % (Auto) (4.7-12.5) % Eos % (Auto) (0.7-5.8) Baso % (Auto) (0.1-1.2) % Neut # (Auto) (1.56-6.13) K/mm3 Lymph # (Auto) (1.18-3.74) K/mm3 [place] # (Auto) (0.24-0.36) K/mm3 Eos # (Auto) (0.04-0.36) K/mm3 Baso # (Auto) (0.01-0.08) K/mm3 Manual Slide Review Sodium 136 (136-145) mEq/L Potassium 3.9 (3.5-5.1) mEq/L Chloride 98 (98-107) mEq/L Carbon Dioxide 33 H (21-32) mEq/L Anion Gap 8.9 (5-15) BUN 17 (7-18) mg/dL Creatinine 0.8 (0.55-1.02) mg/dL Est Cr Clr Drug Dosing 50.27 mL/min Estimated GFR (MDRD) > 60 (>60) mL/min BUN/Creatinine Ratio 21.3 H (14-18) Glucose 179 H (83-115) mg/dL POC Glucose 146 H 138 H (83-110) mg/dL Calcium 8.4 L (8.5-10.1) mg/dL Magnesium 1.8 (1.8-2.4) mg/dl NT-Pro-B Natriuret Pep (0-125) pg/mL 18 18 07/03/17 Range/Units 23:56 05:58 06:09 WBC 14.97 H (3.98-10.04) K/mm3 RBC 4.60 (3.98-5.22) M/mm3 Hgb 12.9 (11.2-15.7) gm/L Hct 41.7 (34.1-44.9) % MCV 90.7 (79.4-94.8) fl MCH 28.0 (25.6-32.2) pg MCHC 30.9 L (32.2-35.5) g/dl RDW Std Deviation 53.5 H (36.4-46.3) fL Plt Count 233 (182-369) K/mm3 MPV 10.4 (9.4-12.3) fl Neut % (Auto) 87.8 H (34.0-71.1) % Lymph % (Auto) 7.2 L (19.3-51.7) % [place] % (Auto) 4.6 L (4.7-12.5) % Eos % (Auto) 0 L (0.7-5.8) Baso % (Auto) 0.1 (0.1-1.2) % Neut # (Auto) 13.15 H (1.56-6.13) K/mm3 Lymph # (Auto) 1.08 L (1.18-3.74) K/mm3 [place] # (Auto) 0.69 H (0.24-0.36) K/mm3 Eos # (Auto) 0.00 L (0.04-0.36) K/mm3 Baso # (Auto) 0.01 (0.01-0.08) K/mm3 Manual Slide Review Abnormal smear Sodium (136-145) mEq/L Potassium (3.5-5.1) mEq/L Chloride (98-107) mEq/L Carbon Dioxide (21-32) mEq/L Anion Gap (5-15) BUN (7-18) mg/dL Creatinine (0.55-1.02) mg/dL Est Cr Clr Drug Dosing mL/min Estimated GFR (MDRD) (>60) mL/min BUN/Creatinine Ratio (14-18) Glucose (83-115) mg/dL POC Glucose 139 H 159 H (83-110) mg/dL Calcium (8.5-10.1) mg/dL Magnesium (1.8-2.4) mg/dl NT-Pro-B Natriuret Pep (0-125) pg/mL 18 07/03/17 Range/Units 06:09 06:09 WBC (3.98-10.04) K/mm3 RBC (3.98-5.22) M/mm3 Hgb (11.2-15.7) gm/L Hct (34.1-44.9) % MCV (79.4-94.8) fl MCH (25.6-32.2) pg MCHC (32.2-35.5) g/dl RDW Std Deviation (36.4-46.3) fL Plt Count (182-369) K/mm3 MPV (9.4-12.3) fl Neut % (Auto) (34.0-71.1) % Lymph % (Auto) (19.3-51.7) % [place] % (Auto) (4.7-12.5) % Eos % (Auto) (0.7-5.8) Baso % (Auto) (0.1-1.2) % Neut # (Auto) (1.56-6.13) K/mm3 Lymph # (Auto) (1.18-3.74) K/mm3 [place] # (Auto) (0.24-0.36) K/mm3 Eos # (Auto) (0.04-0.36) K/mm3 Baso # (Auto) (0.01-0.08) K/mm3 Manual Slide Review Sodium 139 (136-145) mEq/L Potassium 3.7 (3.5-5.1) mEq/L Chloride 101 (98-107) mEq/L Carbon Dioxide 30 (21-32) mEq/L Anion Gap 11.7 (5-15) BUN 21 H (7-18) mg/dL Creatinine 0.9 (0.55-1.02) mg/dL Est Cr Clr Drug Dosing 44.69 mL/min Estimated GFR (MDRD) > 60 (>60) mL/min BUN/Creatinine Ratio 23.3 H (14-18) Glucose 173 H (83-115) mg/dL POC Glucose (83-110) mg/dL Calcium 8.3 L (8.5-10.1) mg/dL Magnesium 1.8 (1.8-2.4) mg/dl NT-Pro-B Natriuret Pep 1692 H (0-125) pg/mL Med Orders - Current: Current Medications Acetaminophen (Tylenol) 650 mg PO Q4H PRN PRN Reason: Pain (Mild 1-3)/fever Hydrocodone Bitart/Acetaminophen ([place] 325-5 Mg) 1 tab PO Q4H PRN PRN Reason: Pain (moderate 4-6) Aspirin (Halfprin) 81 mg PO DAILY [facility] Last Admin: 07/02/17 08:38 Dose: 81 mg Bisacodyl (Dulcolax) 5 mg PO DAILY PRN PRN Reason: Constipation Citalopram Hydrobromide (Celexa) 10 mg PO DAILY [facility] Last Admin: 07/02/17 08:38 Dose: 10 mg Digoxin (Lanoxin) 125 mcg PO DAILY@1200 [facility] Last Admin: 07/02/17 12:10 Dose: 125 mcg Docusate Sodium (Colace) 100 mg PO BID PRN PRN Reason: Constipation Famotidine (Pepcid) 20 mg PO DAILY [facility] Last Admin: 07/02/17 08:37 Dose: 20 mg Fish Oil (Fish Oil) 1 gm PO DAILY [facility] Last Admin: 07/02/17 09:24 Dose: Not Given Furosemide (Lasix) 20 mg PO DAILY [facility] Guaifenesin (Mucinex) 1,200 mg PO BID [facility] Last Admin: 07/02/17 20:10 Dose: Not Given Hydralazine HCl (Apresoline) 20 mg IVPUSH Q4H PRN PRN Reason: Hypertension Last Admin: 07/03/17 07:26 Dose: 20 mg Promethazine HCl 12.5 mg/ (Sodium Chloride) 50.5 mls @ 100 mls/hr IV Q6H PRN PRN Reason: Nausea/Vomiting Propofol (Diprivan 100 Ml) 100 mls @ 1.935 mls/hr IV TITRATE [facility]; Protocol Last Titration: 07/03/17 07:33 Dose: 0 mcg/kg/min, 0 mls/hr Dextrose/Sodium Chloride (Dextrose 5%-Normal Saline) 1,000 mls @ 75 mls/hr IV ASDIRECTED [facility] Last Admin: 07/02/17 19:23 Dose: 75 mls/hr Fentanyl 2,500 mcg/ Sodium (Chloride) 250 mls @ 1 mls/hr IV TITRATE [facility]; Protocol Last Titration: 07/03/17 07:34 Dose: 0 mcg/hr, 0 mls/hr Azithromycin 500 mg/ Sodium (Chloride) 250 mls @ 250 mls/hr IV Q24H [facility] Levalbuterol HCl (Xopenex) 1.25 mg NEB Q4HRRT PRN PRN Reason: Shortness of Breath Levalbuterol HCl (Xopenex) 1.25 mg NEB Q8HR [facility] Last Admin: 07/03/17 06:26 Dose: 1.25 mg Lorazepam (Ativan) 0.5 mg PO BID PRN PRN Reason: Anxiety Last Admin: 07/01/17 08:51 Dose: 0.5 mg Lorazepam (Ativan) 2 mg IVPUSH Q4H PRN PRN Reason: Seizures Lorazepam (Ativan) 0.5 mg IV Q6H PRN PRN Reason: Anxiety Last Admin: 07/01/17 03:52 Dose: 0.5 mg Losartan Potassium (Cozaar) 25 mg PO DAILY [facility] Last Admin: 07/02/17 08:37 Dose: 25 mg Magnesium Oxide (Magnesium Oxide) 400 mg PO BID [facility] Last Admin: 07/02/17 20:10 Dose: 400 mg Magnesium Sulfate (Pharmacy To Dose - Magnesium Replacement) 0 dose .XX ASDIRECTED PRN PRN Reason: RX TO WATCH MAG LEVELS Methylprednisolone Sodium Succinate (Solu-Medrol) 80 mg IVPUSH Q8H [facility] Last Admin: 07/03/17 07:44 Dose: 80 mg Metoprolol Tartrate (Lopressor) 5 mg IVPUSH Q4H PRN PRN Reason: Tachycardia Last Admin: 07/03/17 07:37 Dose: 5 mg Metoprolol Tartrate (Lopressor) 75 mg PO Q12HR [facility] Last Admin: 07/02/17 20:11 Dose: Not Given Modafinil (Provigil) 100 mg PO ONETIME ONE Stop: 07/03/17 08:01 Ondansetron HCl (Zofran) 4 mg IV Q6H PRN PRN Reason: Nausea/Vomiting Pantoprazole Sodium (Protonix Iv) 40 mg IVPUSH DAILY [facility] Last Admin: 07/02/17 08:28 Dose: 40 mg Polyethylene Glycol (Miralax) 17 gm PO DAILY PRN PRN Reason: Constipation Potassium Chloride (Pharmacy To Dose - Potassium Replacement) 0 dose .XX ASDIRECTED PRN PRN Reason: RX TO WATCH K LEVELS Rivaroxaban (Xarelto) 15 mg PO DAILY [facility] Last Admin: 07/02/17 08:34 Dose: 15 mg Senna/Docusate Sodium (Senna Plus) 1 tab PO BID PRN PRN Reason: Constipation Simvastatin (Zocor) 10 mg PO BEDTIME [facility] Last Admin: 07/02/17 20:10 Dose: 10 mg Sodium Chloride (Saline Flush) 10 ml FLUSH ASDIRECTED PRN PRN Reason: Keep Vein Open Last Admin: 07/01/17 01:46 Dose: 10 ml Temazepam (Restoril) 7.5 mg PO BEDTIME PRN PRN Reason: Sleep Tiotropium [place] (Spiriva Handihaler) 18 mcg INH DAILY@0600 [facility] Last Admin: 07/03/17 06:24 Dose: Not Given Vit A/Vit C/Vit E/Selen/Cu/Zn/Lutei (Icaps Mv) 2 tab PO DAILY [facility] Last Admin: 07/02/17 08:36 Dose: 2 tab Discontinued Medications Acetaminophen (Tylenol) 975 mg PO NOW ONE Stop: 07/01/17 01:27 Last Admin: 07/01/17 01:46 Dose: 975 mg Adenosine (Adenocard) Confirm Administered Dose 12 mg .ROUTE .STK-MED ONE Stop: 07/01/17 00:39 Albuterol (Proventil Neb Soln) 2.5 mg NEB QID PRN PRN Reason: SOB/Wheezing Albuterol/Ipratropium (Duoneb 3.0-0.5 Mg/3 Ml) 3 ml NEB QIDRT [facility] Last Admin: 07/01/17 05:01 Dose: 3 ml Azithromycin (Zithromax) 500 mg IV Q24H [facility] Azithromycin (Zithromax) 500 mg IV Q24H [facility] Bumetanide (Bumex) 1 mg IVPUSH ONETIME ONE Stop: 07/02/17 21:07 Last Admin: 07/02/17 22:10 Dose: 1 mg Bumetanide (Bumex) 0.5 mg IVPUSH ONETIME ONE Stop: 07/03/17 07:01 Last Admin: 07/03/17 07:22 Dose: 0.5 mg Digoxin (Lanoxin) 125 mcg PO DAILY@1200 [facility] Digoxin (Lanoxin) 250 mcg PO DAILY@1200 [facility] Last Admin: 07/01/17 18:03 Dose: Not Given Digoxin (Lanoxin) 125 mcg IVPUSH DAILY@1200 [facility] Digoxin (Lanoxin) 250 mcg IVPUSH ONETIME ONE Stop: 07/01/17 12:31 Last Admin: 07/01/17 12:36 Dose: 250 mcg Diltiazem HCl (Diltiazem) 10 mg IVPUSH ONETIME ONE Stop: 07/01/17 00:54 Last Admin: 07/01/17 00:56 Dose: 10 mg Etomidate (Amidate) 20 mg IVPUSH ONETIME ONE Stop: 07/01/17 13:09 Last Admin: 07/01/17 17:56 Dose: 20 mg Furosemide (Lasix) 40 mg IVPUSH NOW ONE Stop: 07/01/17 00:58 Last Admin: 07/01/17 01:10 Dose: 40 mg Furosemide (Lasix) 20 mg PO DAILY [facility] Last Admin: 07/02/17 08:38 Dose: 20 mg Furosemide (Lasix) 40 mg IVPUSH NOW ONE Stop: 07/01/17 16:47 Last Admin: 07/01/17 16:59 Dose: 40 mg Diltiazem HCl 125 mg/ Sodium (Chloride) 125 mls @ 10 mls/hr IV ASDIRECTED [facility] Last Infusion: 07/01/17 10:17 Dose: 0 mg/hr, 0 mls/hr Nitroglycerin/Dextrose (Nitroglycerin 25 Mg/D5w 250 Ml) 25 mg in 250 mls @ 6 mls/hr IV ASDIRECTED [facility] Last Infusion: 07/01/17 07:53 Dose: 0 mcg/min, 0 mls/hr Sodium Chloride (Normal Saline) 1,000 mls @ 75 mls/hr IV ASDIRECTED [facility] Last Admin: 07/01/17 02:48 Dose: 75 mls/hr Magnesium Sulfate 2 gm/ Premix 50 mls @ 25 mls/hr IV ONETIME ONE Stop: 07/01/17 04:11 Last Admin: 07/01/17 02:48 Dose: 25 mls/hr Propofol (Diprivan 100 Ml) Confirm Administered Dose 100 mls @ as directed .ROUTE .STK-MED ONE Stop: 07/01/17 12:56 Last Admin: 07/01/17 17:55 Dose: Not Given Fentanyl 2,500 mcg/ Sodium (Chloride) 250 mls @ 6.45 mls/hr IV TITRATE [facility]; Protocol Last Titration: 07/01/17 14:58 Dose: 1.55 mcg/kg/hr, 10 mls/hr Azithromycin 500 mg/ Sodium (Chloride) 250 mls @ 250 mls/hr IV ONETIME ONE Stop: 07/02/17 21:59 Last Admin: 07/02/17 21:11 Dose: 250 mls/hr Methylprednisolone Sodium Succinate (Solu-Medrol) 125 mg IVPUSH ONETIME ONE Stop: 07/01/17 09:01 Last Admin: 07/01/17 09:17 Dose: 125 mg Metoprolol Tartrate (Lopressor) 50 mg PO Q12HR [facility] Midazolam HCl (Versed 1 Mg/Ml) Confirm Administered Dose 6 mg .ROUTE .STK-MED ONE Stop: 07/01/17 15:17 Last Admin: 07/01/17 18:05 Dose: Not Given Midazolam HCl (Versed 1 Mg/Ml) 5 mg IVPUSH ONETIME ONE Stop: 07/01/17 13:07 Last Admin: 07/01/17 17:55 Dose: 5 mg Midazolam HCl (Versed 1 Mg/Ml) 5 mg IVPUSH ONETIME ONE Stop: 07/01/17 15:20 Last Admin: 07/01/17 18:07 Dose: Not Given Midazolam HCl (Versed 1 Mg/Ml) 5 mg IVPUSH ONETIME ONE Stop: 07/01/17 15:20 Last Admin: 07/01/17 15:19 Dose: 5 mg Modafinil (Provigil) 100 mg PO ONETIME ONE Stop: 07/02/17 08:01 Last Admin: 07/02/17 23:10 Dose: Not Given Morphine Sulfate (Morphine) 1 mg IVPUSH Q2H PRN PRN Reason: Other Stop: 07/02/17 02:09 Last Admin: 07/01/17 11:09 Dose: 1 mg Naloxone HCl (Narcan) 0.4 mg IVPUSH ONETIME ONE Stop: 07/01/17 12:31 Naloxone HCl (Narcan) 0.4 mg IVPUSH ONETIME ONE Stop: 07/01/17 12:31 Last Admin: 07/01/17 12:29 Dose: 0.4 mg Potassium Chloride (Klor-Con M20) 40 meq PO ONETIME ONE Stop: 07/01/17 09:01 Last Admin: 07/01/17 08:56 Dose: 40 meq Prednisone (Prednisone) 20 mg PO BID [facility] Rocuronium [place] (Zemuron) 40 mg IVPUSH ONETIME ONE Stop: 07/01/17 13:08 Last Admin: 07/01/17 17:55 Dose: 40 mg Tiotropium [place] (Spiriva Handihaler) 18 mcg INH DAILY [facility] Last Admin: 07/01/17 09:33 Dose: 1 cap Tiotropium [place] (Spiriva Handihaler) 18 mcg INH DAILY PRN PRN Reason: Shortness of Breath - Exam General: Other (More responsive and lightly sedated) HEENT: Pupils Equal, Pupils Reactive Neck: Trachea Midline Lungs: Wheezing, Other (mechanial breath sounds) Cardiovascular: Irregular Rhythm, Other (Irregular rate) GI/Abdominal Exam: Normal Bowel Sounds, Soft, Non-Tender, No Organomegaly, No Distention, No Abnormal Bruit (Female) Exam: Other (Indwelling wei catheter) Back Exam: Other (deferred) Extremities: Normal Inspection, Normal Range of Motion, Non-Tender, No Pedal Edema, Normal Capillary Refill Peripheral Pulses: 2+: Dorsalis Pedis (L), Dorsalis Pedis (R) Skin: Warm, Dry, Intact Neurological: Other Psy/Mental Status: Other Physical Findings Comments:: Lightly sedated and opens her eyes with verbal calls calls. She is still intubated on mechanical ventilation but now breathing on her own. - Problem List Review Problem List Initiated/Reviewed/Updated: Yes - My Orders Last 24 Hours: My Active Orders 07/02/17 09:00 Magnesium Oxide 400 mg PO BID 07/02/17 12:00 Digoxin [Lanoxin] 125 mcg PO DAILY@1200 07/03/17 08:00 RT Ventilator Weaning [RC] .As Directed ABG [BLOOD GAS ARTERIAL] [BG] Urgent Modafinil [Provigil] 100 mg PO ONETIME ONE 07/03/17 21:00 Azithromycin [Zithromax] 500 mg Sodium Chloride 0.9% [Normal Saline] 250 ml IV Q24H 07/04/17 05:11 BASIC METABOLIC PANEL,BMP [CHEM] AM CBC WITH AUTO DIFF [HEME] AM MAGNESIUM [CHEM] AM 07/04/17 09:00 Furosemide [Lasix] 20 mg PO DAILY 07/05/17 05:11 BASIC METABOLIC PANEL,BMP [CHEM] AM CBC WITH AUTO DIFF [HEME] AM MAGNESIUM [CHEM] AM - Plan Plan:: Assessment/Plan: Acute: Acute Respiratory Failure - 2/2 COPD Exacerbation - On Mechanical Ventilation - CXR post extubation - Plan for extubation once team is here COPD Exacerbation - Has baseline Mod-Severe COPD - Continue Steroids/Bronchodilators/IV Magnesium/IV Azithromycin - Pulmonary Rehab after discharge Congestive Heart Failure - ProBNP 3923--> now 1692 - Likely induced by atrial fibrillation - Heart failure protocol - Latest 2D echo from [facility]: LVEF 55-60% with Moderately reduced RV systolic function and Moderately dilated Left Atrium 04/20/2017 Resolved: S/p Hypomagnesemia - 2/2 inadequate intake - Mg 1.7 --> 1.8 - Replete and monitor S/p Afib with RVR - HR in 140s - Thyroid panel - Cardizem drip; titrate to keep HR < 100 - Continue BB and Digoxin - Stroke PPx: Xarelto S/p Malignant HTN, Improved - BP 205/149 mmHg - Resume BP medications - She is now on Cardizem drip Chronic: HTN HLD Advanced COPD Anxiety Hx/o [place] Plan: She looks good for extubation Routine AM Labs May resume PT/OT if extubation is successful DVT/GI PPx: Xarelto and H2B SW/CM for d/c planning Additional orders as above Code status:1
[2017-07-03] MEDS ORDERED: Modafinil 200 MG Tab PO ONE (08:00)
[2017-07-03] MEDS ORDERED: Diltiazem 25 MG/5 ML SDV IVPUSH ONE (08:02)
--- NOTE | 2017-07-03 08:07 | PCM.SN ---
- Free Text/Narrative Note: Patient successfully extubated at about 0755. Will order CXR and Speech consult. Resume PT/OT sometime today.
--- NOTE | 2017-07-03 08:42 | CR ---
Chest: Frontal view of the chest was obtained utilizing portable technique. Comparison: Prior chest x-ray of 07/01/17. Tubes and catheters have been removed. Heart size and mediastinum are within normal limits. Lungs show no acute parenchymal densities but appear slightly hyperinflated. Bony structures are grossly intact. Impression: 1. Slightly hyperinflated lungs suggesting emphysematous change. 2. Tubes and catheters have been removed. 3. Nothing acute is seen. Diagnostic code #2
[2017-07-03] MEDS: Dextrose 5%-0.9% NaCl 1,000 ML IV SCH (08:59)
[2017-07-03] MEDS ORDERED: Azithromycin 500 MG AdvVial IV SCH ×2 (09:00→21:00)
[2017-07-03] MEDS: Metoprolol Tartrate 25 MG Tab PO SCH ×2 (09:42→20:22)
[2017-07-03] MEDS: Aspirin 81 MG Tab.EC PO SCH (09:43)
[2017-07-03] MEDS: guaiFENesin 600 MG Tab.ER PO SCH ×2 (09:43→20:21)
[2017-07-03] MEDS: Rivaroxaban 10 MG Tab PO SCH (09:44)
[2017-07-03] MEDS: Famotidine 20 MG Tab PO SCH (09:44)
[2017-07-03] MEDS: Losartan 25 MG Tab PO SCH (09:44)
[2017-07-03] MEDS: Magnesium Oxide 400 MG Tab PO SCH ×2 (09:51→20:21)
[2017-07-03] MEDS: Citalopram 10 MG Tab PO SCH (09:51)
[2017-07-03] MEDS: Pantoprazole 40 MG Vial IVPUSH SCH (09:51)
[2017-07-03] MEDS: Multivitamins with Minerals/Folic Acid/Lutein/Zeaxanth Tab PO SCH (09:56)
[2017-07-03] MEDS: Fish Oil/Omega-3 Fatty Acids 1 Gm Cap PO SCH (09:56)
[2017-07-03] MEDS ORDERED: Pantoprazole 40 MG Tab.CR PO SCH (10:44)
[2017-07-03] MEDS: Digoxin 125 MCG Tab PO SCH (11:51)
[2017-07-03] MEDS: Acetaminophen 325 MG Tab PO PRN (17:41)
[2017-07-03] MEDS: Azithromycin 500 MG in Sodium Chloride 0.9% 250 ML IV SCH (20:11)
[2017-07-03] MEDS: Simvastatin 10 MG Tab PO SCH (20:22)
[2017-07-03] MEDS ORDERED: Aluminum Hydroxide/Magnesium Hydroxide/Simethicone Susp 30 ML Cup PO PRN (21:15)
[2017-07-03] MEDS: LORazepam 2 MG/ML SDV IV PRN (21:27)
[2017-07-04] MEDS: hydrALAZINE 20 MG/ML SDV IVPUSH PRN (06:29)
[2017-07-04] MEDS: Tiotropium Inhaler 18 MCG Inhalation Powder Cap Kit of 5 INH SCH (06:37)
[2017-07-04] MEDS: Levalbuterol HCl 1.25 MG/3 ML Neb NEB SCH (06:38)
--- NOTE | 2017-07-04 07:32 | PCM.PN ---
- General Info Date of Service: 07/04/17 Admission Dx/Problem (Free Text): Admission Diagnosis/Problem Admission Diagnosis/Problem Acute pulmonary edema Subjective Update: Follow Up Functional Status: Reports: Pain Controlled, Tolerating Diet, Ambulating, Urinating - Review of Systems General: Denies: Fever, Weakness, Fatigue, Malaise, Chills HEENT: Reports: No Symptoms Pulmonary: Reports: Shortness of Breath (no more than usual). Denies: Cough, Wheezing Cardiovascular: Denies: Chest Pain, Palpitations, Dyspnea on Exertion, Lightheadedness Gastrointestinal: Denies: Abdominal Pain, Nausea, Vomiting Genitourinary: Reports: No Symptoms Musculoskeletal: Reports: No Symptoms Skin: Denies: Cyanosis, Mottled, Pallor, Diaphoresis Neurological: Reports: Weakness, Gait Disturbance. Denies: Confusion, Pre- Existing Deficit Psychiatric: Reports: Anxiety. Denies: Depression, Agitation, Cravings, Hallucinations, Suicidal Ideation Systems Review Comment:: She did not sleep well last night. She is worried and anxious. Her heart rate is fully controlled and continues to feel better overall. She is now on 2L NC. - Patient Data Vitals - Most Recent: Last Vital Signs Temp 36.8 C 07/04/17 03:32 Pulse 98 07/04/17 06:32 Resp 24 H 07/04/17 03:32 BP 155/86 H 07/04/17 06:32 Pulse Ox 92 L 07/04/17 06:38 Weight - Most Recent: 66.678 kg I&O - Last 24 Hours: Intake & Output 07/03/17 07/04/17 07/04/17 22:59 06:59 14:59 Intake Total 2875 450 Output Total 465 535 Balance 2410 -85 Lab Results Last 24 Hours: Laboratory Results - last 24 hr 07/03/17 07/03/17 07/03/17 Range/Units 06:09 06:09 06:09 WBC (3.98-10.04) K/mm3 RBC (3.98-5.22) M/mm3 Hgb (11.2-15.7) gm/L Hct (34.1-44.9) % MCV (79.4-94.8) fl MCH (25.6-32.2) pg MCHC (32.2-35.5) g/dl RDW Std Deviation (36.4-46.3) fL Plt Count (182-369) K/mm3 MPV (9.4-12.3) fl Neut % (Auto) (34.0-71.1) % Lymph % (Auto) (19.3-51.7) % [place] % (Auto) (4.7-12.5) % Eos % (Auto) (0.7-5.8) Baso % (Auto) (0.1-1.2) % Neut # (Auto) (1.56-6.13) K/mm3 Lymph # (Auto) (1.18-3.74) K/mm3 [place] # (Auto) (0.24-0.36) K/mm3 Eos # (Auto) (0.04-0.36) K/mm3 Baso # (Auto) (0.01-0.08) K/mm3 Manual Slide Review Abnormal smear Sodium 139 (136-145) mEq/L Potassium 3.7 (3.5-5.1) mEq/L Chloride 101 (98-107) mEq/L Carbon Dioxide 30 (21-32) mEq/L Anion Gap 11.7 (5-15) BUN 21 H (7-18) mg/dL Creatinine 0.9 (0.55-1.02) mg/dL Est Cr Clr Drug Dosing 44.69 mL/min Estimated GFR (MDRD) > 60 (>60) mL/min BUN/Creatinine Ratio 23.3 H (14-18) Glucose 173 H (83-115) mg/dL Calcium 8.3 L (8.5-10.1) mg/dL Magnesium 1.8 (1.8-2.4) mg/dl NT-Pro-B Natriuret Pep 1692 H (0-125) pg/mL 07/04/17 07/04/17 Range/Units 06:16 06:16 WBC 18.65 H (3.98-10.04) K/mm3 RBC 4.76 (3.98-5.22) M/mm3 Hgb 13.4 (11.2-15.7) gm/L Hct 43.6 (34.1-44.9) % MCV 91.6 (79.4-94.8) fl MCH 28.2 (25.6-32.2) pg MCHC 30.7 L (32.2-35.5) g/dl RDW Std Deviation 52.9 H (36.4-46.3) fL Plt Count 277 (182-369) K/mm3 MPV 10.1 (9.4-12.3) fl Neut % (Auto) 90.5 H (34.0-71.1) % Lymph % (Auto) 6.2 L (19.3-51.7) % [place] % (Auto) 2.8 L (4.7-12.5) % Eos % (Auto) 0 L (0.7-5.8) Baso % (Auto) 0.1 (0.1-1.2) % Neut # (Auto) 16.87 H (1.56-6.13) K/mm3 Lymph # (Auto) 1.15 L (1.18-3.74) K/mm3 [place] # (Auto) 0.53 H (0.24-0.36) K/mm3 Eos # (Auto) 0.00 L (0.04-0.36) K/mm3 Baso # (Auto) 0.02 (0.01-0.08) K/mm3 Manual Slide Review Abnormal smear Sodium 138 (136-145) mEq/L Potassium 3.8 (3.5-5.1) mEq/L Chloride 100 (98-107) mEq/L Carbon Dioxide 33 H (21-32) mEq/L Anion Gap 8.8 (5-15) BUN 27 H (7-18) mg/dL Creatinine 0.9 (0.55-1.02) mg/dL Est Cr Clr Drug Dosing 44.69 mL/min Estimated GFR (MDRD) > 60 (>60) mL/min BUN/Creatinine Ratio 30.0 H (14-18) Glucose 151 H (83-115) mg/dL Calcium 8.7 (8.5-10.1) mg/dL Magnesium 2.1 (1.8-2.4) mg/dl NT-Pro-B Natriuret Pep (0-125) pg/mL Med Orders - Current: Current Medications Acetaminophen (Tylenol) 650 mg PO Q4H PRN PRN Reason: Pain (Mild 1-3)/fever Last Admin: 07/03/17 17:41 Dose: 650 mg Hydrocodone Bitart/Acetaminophen (Quinn 325-5 Mg) 1 tab PO Q4H PRN PRN Reason: Pain (moderate 4-6) Al Hydroxide/Mg Hydroxide (Mag-Al Plus) 30 ml PO Q4H PRN PRN Reason: Heartburn Last Admin: 07/03/17 21:27 Dose: 30 ml Aspirin (Halfprin) 81 mg PO DAILY [facility] Last Admin: 07/03/17 09:43 Dose: 81 mg Bisacodyl (Dulcolax) 5 mg PO DAILY PRN PRN Reason: Constipation Last Admin: 07/03/17 09:44 Dose: 5 mg Citalopram Hydrobromide (Celexa) 10 mg PO DAILY [facility] Last Admin: 07/03/17 09:51 Dose: 10 mg Digoxin (Lanoxin) 125 mcg PO DAILY@1200 [facility] Last Admin: 07/03/17 11:51 Dose: 125 mcg Docusate Sodium (Colace) 100 mg PO BID PRN PRN Reason: Constipation Famotidine (Pepcid) 20 mg PO DAILY [facility] Last Admin: 07/03/17 09:44 Dose: 20 mg Fish Oil (Fish Oil) 1 gm PO DAILY [facility] Last Admin: 07/03/17 09:56 Dose: Not Given Furosemide (Lasix) 20 mg PO DAILY [facility] Guaifenesin (Mucinex) 1,200 mg PO BID [facility] Last Admin: 07/03/17 20:21 Dose: 1,200 mg Hydralazine HCl (Apresoline) 20 mg IVPUSH Q4H PRN PRN Reason: Hypertension Last Admin: 07/04/17 06:29 Dose: 20 mg Promethazine HCl 12.5 mg/ (Sodium Chloride) 50.5 mls @ 100 mls/hr IV Q6H PRN PRN Reason: Nausea/Vomiting Azithromycin 500 mg/ Sodium (Chloride) 250 mls @ 250 mls/hr IV Q24H [facility] Last Admin: 07/03/17 20:11 Dose: 250 mls/hr Levalbuterol HCl (Xopenex) 1.25 mg NEB Q4HRRT PRN PRN Reason: Shortness of Breath Last Admin: 07/04/17 03:17 Dose: 1.25 mg Levalbuterol HCl (Xopenex) 1.25 mg NEB Q8HR [facility] Last Admin: 07/04/17 06:38 Dose: 1.25 mg Lorazepam (Ativan) 0.5 mg PO BID PRN PRN Reason: Anxiety Last Admin: 07/01/17 08:51 Dose: 0.5 mg Lorazepam (Ativan) 2 mg IVPUSH Q4H PRN PRN Reason: Seizures Lorazepam (Ativan) 0.5 mg IV Q6H PRN PRN Reason: Anxiety Last Admin: 07/03/17 21:27 Dose: 0.5 mg Losartan Potassium (Cozaar) 25 mg PO DAILY [facility] Last Admin: 07/03/17 09:44 Dose: 25 mg Magnesium Oxide (Magnesium Oxide) 400 mg PO BID [facility] Last Admin: 07/03/17 20:21 Dose: 400 mg Magnesium Sulfate (Pharmacy To Dose - Magnesium Replacement) 0 dose .XX ASDIRECTED PRN PRN Reason: RX TO WATCH MAG LEVELS Methylprednisolone Sodium Succinate (Solu-Medrol) 80 mg IVPUSH Q8H [facility] Last Admin: 07/03/17 23:42 Dose: 80 mg Metoprolol Tartrate (Lopressor) 5 mg IVPUSH Q4H PRN PRN Reason: Tachycardia Last Admin: 07/03/17 07:37 Dose: 5 mg Metoprolol Tartrate (Lopressor) 75 mg PO Q12HR [facility] Last Admin: 07/03/17 20:22 Dose: 75 mg Ondansetron HCl (Zofran) 4 mg IV Q6H PRN PRN Reason: Nausea/Vomiting Polyethylene Glycol (Miralax) 17 gm PO DAILY PRN PRN Reason: Constipation Potassium Chloride (Pharmacy To Dose - Potassium Replacement) 0 dose .XX ASDIRECTED PRN PRN Reason: RX TO WATCH K LEVELS Rivaroxaban (Xarelto) 15 mg PO DAILY [facility] Last Admin: 07/03/17 09:44 Dose: 15 mg Senna/Docusate Sodium (Senna Plus) 1 tab PO BID PRN PRN Reason: Constipation Simvastatin (Zocor) 10 mg PO BEDTIME [facility] Last Admin: 07/03/17 20:22 Dose: 10 mg Sodium Chloride (Saline Flush) 10 ml FLUSH ASDIRECTED PRN PRN Reason: Keep Vein Open Last Admin: 07/01/17 01:46 Dose: 10 ml Temazepam (Restoril) 7.5 mg PO BEDTIME PRN PRN Reason: Sleep Tiotropium Beacon (Spiriva Handihaler) 18 mcg INH DAILY@0600 [facility] Last Admin: 07/04/17 06:37 Dose: 1 cap Vit A/Vit C/Vit E/Selen/Cu/Zn/Lutei (Icaps Mv) 2 tab PO DAILY [facility] Last Admin: 07/03/17 09:56 Dose: Not Given Discontinued Medications Acetaminophen (Tylenol) 975 mg PO NOW ONE Stop: 07/01/17 01:27 Last Admin: 07/01/17 01:46 Dose: 975 mg Adenosine (Adenocard) Confirm Administered Dose 12 mg .ROUTE .STK-MED ONE Stop: 07/01/17 00:39 Albuterol (Proventil Neb Soln) 2.5 mg NEB QID PRN PRN Reason: SOB/Wheezing Albuterol/Ipratropium (Duoneb 3.0-0.5 Mg/3 Ml) 3 ml NEB QIDRT [facility] Last Admin: 07/01/17 05:01 Dose: 3 ml Azithromycin (Zithromax) 500 mg IV Q24H [facility] Azithromycin (Zithromax) 500 mg IV Q24H [facility] Bumetanide (Bumex) 1 mg IVPUSH ONETIME ONE Stop: 07/02/17 21:07 Last Admin: 07/02/17 22:10 Dose: 1 mg Bumetanide (Bumex) 0.5 mg IVPUSH ONETIME ONE Stop: 07/03/17 07:01 Last Admin: 07/03/17 07:22 Dose: 0.5 mg Bumetanide (Bumex) 0.5 mg IVPUSH ONETIME ONE Stop: 07/03/17 19:53 Last Admin: 07/03/17 20:01 Dose: Not Given Bumetanide (Bumex) 1 mg IVPUSH ONETIME ONE Stop: 07/03/17 20:00 Last Admin: 07/03/17 20:40 Dose: 1 mg Digoxin (Lanoxin) 125 mcg PO DAILY@1200 [facility] Digoxin (Lanoxin) 250 mcg PO DAILY@1200 [facility] Last Admin: 07/01/17 18:03 Dose: Not Given Digoxin (Lanoxin) 125 mcg IVPUSH DAILY@1200 [facility] Digoxin (Lanoxin) 250 mcg IVPUSH ONETIME ONE Stop: 07/01/17 12:31 Last Admin: 07/01/17 12:36 Dose: 250 mcg Diltiazem HCl (Diltiazem) 10 mg IVPUSH ONETIME ONE Stop: 07/01/17 00:54 Last Admin: 07/01/17 00:56 Dose: 10 mg Diltiazem HCl (Diltiazem) 10 mg IVPUSH ONETIME ONE Stop: 07/03/17 08:03 Last Admin: 07/03/17 08:02 Dose: 10 mg Etomidate (Amidate) 20 mg IVPUSH ONETIME ONE Stop: 07/01/17 13:09 Last Admin: 07/01/17 17:56 Dose: 20 mg Furosemide (Lasix) 40 mg IVPUSH NOW ONE Stop: 07/01/17 00:58 Last Admin: 07/01/17 01:10 Dose: 40 mg Furosemide (Lasix) 20 mg PO DAILY [facility] Last Admin: 07/02/17 08:38 Dose: 20 mg Furosemide (Lasix) 40 mg IVPUSH NOW ONE Stop: 07/01/17 16:47 Last Admin: 07/01/17 16:59 Dose: 40 mg Diltiazem HCl 125 mg/ Sodium (Chloride) 125 mls @ 10 mls/hr IV ASDIRECTED [facility] Last Infusion: 07/01/17 10:17 Dose: 0 mg/hr, 0 mls/hr Nitroglycerin/Dextrose (Nitroglycerin 25 Mg/D5w 250 Ml) 25 mg in 250 mls @ 6 mls/hr IV ASDIRECTED [facility] Last Infusion: 07/01/17 07:53 Dose: 0 mcg/min, 0 mls/hr Sodium Chloride (Normal Saline) 1,000 mls @ 75 mls/hr IV ASDIRECTED [facility] Last Admin: 07/01/17 02:48 Dose: 75 mls/hr Magnesium Sulfate 2 gm/ Premix 50 mls @ 25 mls/hr IV ONETIME ONE Stop: 07/01/17 04:11 Last Admin: 07/01/17 02:48 Dose: 25 mls/hr Propofol (Diprivan 100 Ml) Confirm Administered Dose 100 mls @ as directed .ROUTE .STK-MED ONE Stop: 07/01/17 12:56 Last Admin: 07/01/17 17:55 Dose: Not Given Fentanyl 2,500 mcg/ Sodium (Chloride) 250 mls @ 6.45 mls/hr IV TITRATE [facility]; Protocol Last Titration: 07/01/17 14:58 Dose: 1.55 mcg/kg/hr, 10 mls/hr Propofol (Diprivan 100 Ml) 100 mls @ 1.935 mls/hr IV TITRATE [facility]; Protocol Last Titration: 07/03/17 07:33 Dose: 0 mcg/kg/min, 0 mls/hr Dextrose/Sodium Chloride (Dextrose 5%-Normal Saline) 1,000 mls @ 75 mls/hr IV ASDIRECTED [facility] Last Admin: 07/03/17 08:59 Dose: 75 mls/hr Fentanyl 2,500 mcg/ Sodium (Chloride) 250 mls @ 1 mls/hr IV TITRATE [facility]; Protocol Last Titration: 07/03/17 07:34 Dose: 0 mcg/hr, 0 mls/hr Azithromycin 500 mg/ Sodium (Chloride) 250 mls @ 250 mls/hr IV ONETIME ONE Stop: 07/02/17 21:59 Last Admin: 07/02/17 21:11 Dose: 250 mls/hr Methylprednisolone Sodium Succinate (Solu-Medrol) 125 mg IVPUSH ONETIME ONE Stop: 07/01/17 09:01 Last Admin: 07/01/17 09:17 Dose: 125 mg Metoprolol Tartrate (Lopressor) 50 mg PO Q12HR [facility] Midazolam HCl (Versed 1 Mg/Ml) Confirm Administered Dose 6 mg .ROUTE .STK-MED ONE Stop: 07/01/17 15:17 Last Admin: 07/01/17 18:05 Dose: Not Given Midazolam HCl (Versed 1 Mg/Ml) 5 mg IVPUSH ONETIME ONE Stop: 07/01/17 13:07 Last Admin: 07/01/17 17:55 Dose: 5 mg Midazolam HCl (Versed 1 Mg/Ml) 5 mg IVPUSH ONETIME ONE Stop: 07/01/17 15:20 Last Admin: 07/01/17 18:07 Dose: Not Given Midazolam HCl (Versed 1 Mg/Ml) 5 mg IVPUSH ONETIME ONE Stop: 07/01/17 15:20 Last Admin: 07/01/17 15:19 Dose: 5 mg Modafinil (Provigil) 100 mg PO ONETIME ONE Stop: 07/02/17 08:01 Last Admin: 07/02/17 23:10 Dose: Not Given Modafinil (Provigil) 100 mg PO ONETIME ONE Stop: 07/03/17 08:01 Last Admin: 07/03/17 09:42 Dose: 100 mg Morphine Sulfate (Morphine) 1 mg IVPUSH Q2H PRN PRN Reason: Other Stop: 07/02/17 02:09 Last Admin: 07/01/17 11:09 Dose: 1 mg Naloxone HCl (Narcan) 0.4 mg IVPUSH ONETIME ONE Stop: 07/01/17 12:31 Naloxone HCl (Narcan) 0.4 mg IVPUSH ONETIME ONE Stop: 07/01/17 12:31 Last Admin: 07/01/17 12:29 Dose: 0.4 mg Pantoprazole Sodium (Protonix Iv) 40 mg IVPUSH DAILY [facility] Last Admin: 07/03/17 09:51 Dose: 40 mg Pantoprazole Sodium (Protonix) 40 mg PO DAILY [facility] Potassium Chloride (Klor-Con M20) 40 meq PO ONETIME ONE Stop: 07/01/17 09:01 Last Admin: 07/01/17 08:56 Dose: 40 meq Prednisone (Prednisone) 20 mg PO BID [facility] Rocuronium [place] (Zemuron) 40 mg IVPUSH ONETIME ONE Stop: 07/01/17 13:08 Last Admin: 07/01/17 17:55 Dose: 40 mg Tiotropium [place] (Spiriva Handihaler) 18 mcg INH DAILY [facility] Last Admin: 07/01/17 09:33 Dose: 1 cap Tiotropium [place] (Spiriva Handihaler) 18 mcg INH DAILY PRN PRN Reason: Shortness of Breath - Exam Quality Assessment: Supplemental Oxygen General: Alert, Oriented, Cooperative, No Acute Distress HEENT: Pupils Equal, Pupils Reactive, EOMI, Mucous Membr. Moist/[place] Neck: Supple, Trachea Midline, No JVD, No Thyromegaly Lungs: Normal Respiratory Effort, Wheezing Cardiovascular: Irregular Rhythm, Other (Irregular Rate) GI/Abdominal Exam: Normal Bowel Sounds, Soft, Non-Tender, No Organomegaly, No Distention, No Abnormal Bruit, No Mass (Female) Exam: Deferred Back Exam: Normal Inspection, Decreased Range of Motion Extremities: Normal Inspection, Normal Range of Motion, Non-Tender, No Pedal Edema, Normal Capillary Refill Peripheral Pulses: 2+: Dorsalis Pedis (L), Dorsalis Pedis (R) Skin: Warm, Dry, Intact Neurological: No New Focal Deficit Psy/Mental Status: Alert, Normal Affect, Normal Mood. No: Anxious, Agitated, Suicidal Ideation, Hallucinations - Problem List Review Problem List Initiated/Reviewed/Updated: Yes - My Orders Last 24 Hours: My Active Orders 07/03/17 08:00 RT Ventilator Weaning [RC] .As Directed 07/03/17 08:30 Consult to Speech Language Pathology [[employer] Evaluation and Treatment] [CONS] Routine 07/03/17 18:29 Communication Order [RC] ASDIRECTED Remove Curtis Catheter [Urinary Catheter Removal] [RC] Per Unit Routine 07/03/17 21:00 Azithromycin [Zithromax] 500 mg Sodium Chloride 0.9% [Normal Saline] 250 ml IV Q24H 07/03/17 21:15 Alum Hydrox/Mag Hydrox/Simeth [Mag-Al Plus] 30 ml PO Q4H PRN 07/03/17 Dinner Heart Healthy Diet [DIET] 07/04/17 06:38 Admission Status [Patient Status] [ADT] Routine 07/04/17 09:00 Furosemide [Lasix] 20 mg PO DAILY 07/05/17 05:11 BASIC METABOLIC PANEL,BMP [CHEM] AM CBC WITH AUTO DIFF [HEME] AM MAGNESIUM [CHEM] AM - Plan Plan:: Assessment/Plan: Acute: COPD Exacerbation, Continues to Improve - Has baseline Mod-Severe COPD - Continue Steroids/Bronchodilators/IV Magnesium/IV Azithromycin - Change IV Steroid to 40 mg IVP TID and added scheduled Douneb 3 ml TIDRT - Pulmonary Rehab after discharge Congestive Heart Failure/Pulmonary Edema - ProBNP 3923--> now 1692 - Likely induced by atrial fibrillation - Heart failure protocol - Latest 2D echo from [place]: LVEF 55-60% with Moderately reduced RV systolic function and Moderately dilated Left Atrium 04/20/2017 Anxiety - 2/2 Medical Condition - She agreed with a trial of low dose Knonopin TID and will see how she respond to it Resolved: S/p Hypomagnesemia - 2/2 inadequate intake - Mg 1.7 --> 1.8 - Replete and monitor S/p Afib with RVR - HR in 140s - Thyroid panel - Cardizem drip; titrate to keep HR < 100 - Continue BB and Digoxin - Stroke PPx: Xarelto S/p Malignant HTN, Improved - BP 205/149 mmHg - Resume BP medications - She is now on Cardizem drip S/p Acute Respiratory Failure - 2/2 COPD Exacerbation - On Mechanical Ventilation - CXR post extubation - Plan for extubation once team is here Chronic: HTN HLD Advanced COPD Anxiety Hx/o [facility] Plan: She continues to improve clinically Transfer to [facility] with Tele Routine AM Labs Continue PT/OT DVT/GI PPx: Xarelto and H2B SW/CM for d/c planning Encourage to use IS and Ambulate as tolerated Additional orders as above Code status:1
[2017-07-04] MEDS: Famotidine 20 MG Tab PO SCH (08:46)
[2017-07-04] MEDS: Multivitamins with Minerals/Folic Acid/Lutein/Zeaxanth Tab PO SCH (08:46)
[2017-07-04] MEDS: guaiFENesin 600 MG Tab.ER PO SCH ×2 (08:47→21:04)
[2017-07-04] MEDS: Metoprolol Tartrate 25 MG Tab PO SCH ×2 (08:47→21:02)
[2017-07-04] MEDS: Aspirin 81 MG Tab.EC PO SCH (08:48)
[2017-07-04] MEDS: Losartan 25 MG Tab PO SCH (08:48)
[2017-07-04] MEDS: Citalopram 10 MG Tab PO SCH (08:48)
[2017-07-04] MEDS: Fish Oil/Omega-3 Fatty Acids 1 Gm Cap PO SCH ×2 (08:48→08:55)
[2017-07-04] MEDS: Rivaroxaban 10 MG Tab PO SCH (08:48)
[2017-07-04] MEDS: Furosemide 20 MG Tab PO SCH (08:48)
[2017-07-04] MEDS: Magnesium Oxide 400 MG Tab PO SCH ×2 (08:48→21:04)
[2017-07-04] MEDS: methylPREDNISolone Sodium Succinate 40 MG/1 ML SDV IVPUSH SCH ×3 (08:49→23:21)
[2017-07-04] MEDS ORDERED: ClonazePAM 0.5 MG Tab PO SCH (12:00)
[2017-07-04] MEDS: Digoxin 125 MCG Tab PO SCH (12:06)
[2017-07-04] MEDS: Albuterol/Ipratropium 3.0-0.5 MG/3 ML Neb Soln NEB SCH ×2 (14:21→20:56)
[2017-07-04] MEDS: ClonazePAM 0.5 MG Tab PO SCH ×2 (15:00→21:02)
[2017-07-04] MEDS: Azithromycin 500 MG in Sodium Chloride 0.9% 250 ML IV SCH (21:04)
[2017-07-04] MEDS: Simvastatin 10 MG Tab PO SCH (21:05)
[2017-07-04] MEDS: Acetaminophen 325 MG Tab PO PRN (21:05)
--- NOTE | 2017-07-05 07:08 | PCM.PN ---
- General Info Date of Service: 07/05/17 Admission Dx/Problem (Free Text): Admission Diagnosis/Problem Admission Diagnosis/Problem Acute pulmonary edema Subjective Update: Follow Up Functional Status: Reports: Pain Controlled, Tolerating Diet, Ambulating, Urinating. Denies: New Symptoms - Review of Systems General: Reports: Weakness. Denies: Fever, Malaise, Chills HEENT: Reports: No Symptoms Pulmonary: Reports: Shortness of Breath. Denies: Cough, Sputum, Wheezing Cardiovascular: Denies: Chest Pain, Palpitations, Dyspnea on Exertion, Edema, Lightheadedness Gastrointestinal: Denies: Abdominal Pain, Nausea, Vomiting Genitourinary: Reports: No Symptoms Musculoskeletal: Reports: No Symptoms Skin: Denies: Cyanosis, Mottled, Pallor, Diaphoresis, Rash Neurological: Reports: Gait Disturbance. Denies: Confusion Psychiatric: Reports: No Symptoms. Denies: Depression, Anxiety, Agitation, Hallucinations Systems Review Comment:: She slept pretty good. She states "I slept like a log". She woke up early this morning and "ate breakfast like a pig". She feels continues to get better. Her low dose Klonopin seems to be working just fine with her. She is on 1L NC sating at 93-97%. - Patient Data Vitals - Most Recent: Last Vital Signs Temp 37.0 C 07/05/17 05:17 Pulse 98 07/05/17 05:17 Resp 16 07/05/17 05:17 BP 135/75 07/04/17 21:02 Pulse Ox 92 L 07/05/17 05:17 Weight - Most Recent: 66.633 kg I&O - Last 24 Hours: Intake & Output 07/04/17 07/05/17 07/05/17 22:59 06:59 14:59 Intake Total 1100 Output Total 400 Balance 700 Lab Results Last 24 Hours: Laboratory Results - last 24 hr 07/05/17 07/05/17 Range/Units 05:55 05:55 WBC 17.49 H (3.98-10.04) K/mm3 RBC 4.75 (3.98-5.22) M/mm3 Hgb 13.4 (11.2-15.7) gm/L Hct 43.6 (34.1-44.9) % MCV 91.8 (79.4-94.8) fl MCH 28.2 (25.6-32.2) pg MCHC 30.7 L (32.2-35.5) g/dl RDW Std Deviation 52.1 H (36.4-46.3) fL Plt Count 256 (182-369) K/mm3 MPV 10.1 (9.4-12.3) fl Neut % (Auto) 81.4 H (34.0-71.1) % Lymph % (Auto) 13.2 L (19.3-51.7) % [place] % (Auto) 5.0 (4.7-12.5) % Eos % (Auto) 0 L (0.7-5.8) Baso % (Auto) 0.1 (0.1-1.2) % Neut # (Auto) 14.23 H (1.56-6.13) K/mm3 Lymph # (Auto) 2.31 (1.18-3.74) K/mm3 [place] # (Auto) 0.87 H (0.24-0.36) K/mm3 Eos # (Auto) 0.00 L (0.04-0.36) K/mm3 Baso # (Auto) 0.02 (0.01-0.08) K/mm3 Manual Slide Review Abnormal smear Sodium 140 (136-145) mEq/L Potassium 4.2 (3.5-5.1) mEq/L Chloride 101 (98-107) mEq/L Carbon Dioxide 34 H (21-32) mEq/L Anion Gap 9.2 (5-15) BUN 35 H (7-18) mg/dL Creatinine 0.9 (0.55-1.02) mg/dL Est Cr Clr Drug Dosing 44.69 mL/min Estimated GFR (MDRD) > 60 (>60) mL/min BUN/Creatinine Ratio 38.9 H (14-18) Glucose 118 H (83-115) mg/dL Calcium 8.9 (8.5-10.1) mg/dL Magnesium 2.5 H (1.8-2.4) mg/dl Med Orders - Current: Current Medications Acetaminophen (Tylenol) 650 mg PO Q4H PRN PRN Reason: Pain (Mild 1-3)/fever Last Admin: 07/04/17 21:05 Dose: 650 mg Hydrocodone Bitart/Acetaminophen ([place] 325-5 Mg) 1 tab PO Q4H PRN PRN Reason: Pain (moderate 4-6) Al Hydroxide/Mg Hydroxide (Mag-Al Plus) 30 ml PO Q4H PRN PRN Reason: Heartburn Last Admin: 07/03/17 21:27 Dose: 30 ml Albuterol/Ipratropium (Duoneb 3.0-0.5 Mg/3 Ml) 3 ml NEB TID@0700,1400,2100 [facility] Last Admin: 07/04/17 20:56 Dose: 3 ml Aspirin (Halfprin) 81 mg PO DAILY [facility] Last Admin: 07/04/17 08:48 Dose: 81 mg Bisacodyl (Dulcolax) 5 mg PO DAILY PRN PRN Reason: Constipation Last Admin: 07/03/17 09:44 Dose: 5 mg Citalopram Hydrobromide (Celexa) 10 mg PO DAILY [facility] Last Admin: 07/04/17 08:48 Dose: 10 mg Clonazepam (Klonopin) 0.5 mg PO TID@0600,1400,2100 [facility] Last Admin: 07/04/17 21:02 Dose: 0.5 mg Digoxin (Lanoxin) 125 mcg PO DAILY@1200 [facility] Last Admin: 07/04/17 12:06 Dose: 125 mcg Docusate Sodium (Colace) 100 mg PO BID PRN PRN Reason: Constipation Famotidine (Pepcid) 20 mg PO DAILY [facility] Last Admin: 07/04/17 08:46 Dose: 20 mg Fish Oil (Fish Oil) 1 gm PO DAILY [facility] Last Admin: 07/04/17 08:55 Dose: Not Given Furosemide (Lasix) 20 mg PO DAILY [facility] Last Admin: 07/04/17 08:48 Dose: 20 mg Guaifenesin (Mucinex) 1,200 mg PO BID [facility] Last Admin: 07/04/17 21:04 Dose: 1,200 mg Hydralazine HCl (Apresoline) 20 mg IVPUSH Q4H PRN PRN Reason: Hypertension Last Admin: 07/04/17 06:29 Dose: 20 mg Promethazine HCl 12.5 mg/ (Sodium Chloride) 50.5 mls @ 100 mls/hr IV Q6H PRN PRN Reason: Nausea/Vomiting Azithromycin 500 mg/ Sodium (Chloride) 250 mls @ 250 mls/hr IV Q24H [facility] Last Admin: 07/04/17 21:04 Dose: 250 mls/hr Levalbuterol HCl (Xopenex) 1.25 mg NEB Q4HRRT PRN PRN Reason: Shortness of Breath Last Admin: 07/04/17 03:17 Dose: 1.25 mg Lorazepam (Ativan) 0.5 mg PO BID PRN PRN Reason: Anxiety Last Admin: 07/01/17 08:51 Dose: 0.5 mg Lorazepam (Ativan) 2 mg IVPUSH Q4H PRN PRN Reason: Seizures Lorazepam (Ativan) 0.5 mg IV Q6H PRN PRN Reason: Anxiety Last Admin: 07/03/17 21:27 Dose: 0.5 mg Losartan Potassium (Cozaar) 25 mg PO DAILY [facility] Last Admin: 07/04/17 08:48 Dose: 25 mg Magnesium Oxide (Magnesium Oxide) 400 mg PO BID [facility] Last Admin: 07/04/17 21:04 Dose: 400 mg Magnesium Sulfate (Pharmacy To Dose - Magnesium Replacement) 0 dose .XX ASDIRECTED PRN PRN Reason: RX TO WATCH MAG LEVELS Methylprednisolone Sodium Succinate (Solu-Medrol) 40 mg IVPUSH Q8H [facility] Last Admin: 07/04/17 23:21 Dose: 40 mg Metoprolol Tartrate (Lopressor) 5 mg IVPUSH Q4H PRN PRN Reason: Tachycardia Last Admin: 07/03/17 07:37 Dose: 5 mg Metoprolol Tartrate (Lopressor) 75 mg PO Q12HR [facility] Last Admin: 07/04/17 21:02 Dose: 75 mg Ondansetron HCl (Zofran) 4 mg IV Q6H PRN PRN Reason: Nausea/Vomiting Polyethylene Glycol (Miralax) 17 gm PO DAILY PRN PRN Reason: Constipation Potassium Chloride (Pharmacy To Dose - Potassium Replacement) 0 dose .XX ASDIRECTED PRN PRN Reason: RX TO WATCH K LEVELS Rivaroxaban (Xarelto) 15 mg PO DAILY [facility] Last Admin: 07/04/17 08:48 Dose: 15 mg Senna/Docusate Sodium (Senna Plus) 1 tab PO BID PRN PRN Reason: Constipation Simvastatin (Zocor) 10 mg PO BEDTIME [facility] Last Admin: 07/04/17 21:05 Dose: 10 mg Sodium Chloride (Saline Flush) 10 ml FLUSH ASDIRECTED PRN PRN Reason: Keep Vein Open Last Admin: 07/01/17 01:46 Dose: 10 ml Temazepam (Restoril) 7.5 mg PO BEDTIME PRN PRN Reason: Sleep Last Admin: 07/05/17 01:47 Dose: 7.5 mg Tiotropium Baker (Spiriva Handihaler) 18 mcg INH DAILY@0600 [facility] Last Admin: 07/04/17 06:37 Dose: 1 cap Vit A/Vit C/Vit E/Selen/Cu/Zn/Lutei (Icaps Mv) 2 tab PO DAILY [facility] Last Admin: 07/04/17 08:46 Dose: 2 tab Discontinued Medications Acetaminophen (Tylenol) 975 mg PO NOW ONE Stop: 07/01/17 01:27 Last Admin: 07/01/17 01:46 Dose: 975 mg Adenosine (Adenocard) Confirm Administered Dose 12 mg .ROUTE .STK-MED ONE Stop: 07/01/17 00:39 Last Admin: 07/04/17 07:33 Dose: Not Given Albuterol (Proventil Neb Soln) 2.5 mg NEB QID PRN PRN Reason: SOB/Wheezing Albuterol/Ipratropium (Duoneb 3.0-0.5 Mg/3 Ml) 3 ml NEB QIDRT [facility] Last Admin: 07/01/17 05:01 Dose: 3 ml Azithromycin (Zithromax) 500 mg IV Q24H [facility] Azithromycin (Zithromax) 500 mg IV Q24H [facility] Bumetanide (Bumex) 1 mg IVPUSH ONETIME ONE Stop: 07/02/17 21:07 Last Admin: 07/02/17 22:10 Dose: 1 mg Bumetanide (Bumex) 0.5 mg IVPUSH ONETIME ONE Stop: 07/03/17 07:01 Last Admin: 07/03/17 07:22 Dose: 0.5 mg Bumetanide (Bumex) 0.5 mg IVPUSH ONETIME ONE Stop: 07/03/17 19:53 Last Admin: 07/03/17 20:01 Dose: Not Given Bumetanide (Bumex) 1 mg IVPUSH ONETIME ONE Stop: 07/03/17 20:00 Last Admin: 07/03/17 20:40 Dose: 1 mg Clonazepam (Klonopin) 0.5 mg PO ASDIRECTED [facility] Digoxin (Lanoxin) 125 mcg PO DAILY@1200 [facility] Digoxin (Lanoxin) 250 mcg PO DAILY@1200 [facility] Last Admin: 07/01/17 18:03 Dose: Not Given Digoxin (Lanoxin) 125 mcg IVPUSH DAILY@1200 [facility] Digoxin (Lanoxin) 250 mcg IVPUSH ONETIME ONE Stop: 07/01/17 12:31 Last Admin: 07/01/17 12:36 Dose: 250 mcg Diltiazem HCl (Diltiazem) 10 mg IVPUSH ONETIME ONE Stop: 07/01/17 00:54 Last Admin: 07/01/17 00:56 Dose: 10 mg Diltiazem HCl (Diltiazem) 10 mg IVPUSH ONETIME ONE Stop: 07/03/17 08:03 Last Admin: 07/03/17 08:02 Dose: 10 mg Etomidate (Amidate) 20 mg IVPUSH ONETIME ONE Stop: 07/01/17 13:09 Last Admin: 07/01/17 17:56 Dose: 20 mg Furosemide (Lasix) 40 mg IVPUSH NOW ONE Stop: 07/01/17 00:58 Last Admin: 07/01/17 01:10 Dose: 40 mg Furosemide (Lasix) 20 mg PO DAILY [facility] Last Admin: 07/02/17 08:38 Dose: 20 mg Furosemide (Lasix) 40 mg IVPUSH NOW ONE Stop: 07/01/17 16:47 Last Admin: 07/01/17 16:59 Dose: 40 mg Diltiazem HCl 125 mg/ Sodium (Chloride) 125 mls @ 10 mls/hr IV ASDIRECTED [facility] Last Infusion: 07/01/17 10:17 Dose: 0 mg/hr, 0 mls/hr Nitroglycerin/Dextrose (Nitroglycerin 25 Mg/D5w 250 Ml) 25 mg in 250 mls @ 6 mls/hr IV ASDIRECTED [facility] Last Infusion: 07/01/17 07:53 Dose: 0 mcg/min, 0 mls/hr Sodium Chloride (Normal Saline) 1,000 mls @ 75 mls/hr IV ASDIRECTED [facility] Last Admin: 07/01/17 02:48 Dose: 75 mls/hr Magnesium Sulfate 2 gm/ Premix 50 mls @ 25 mls/hr IV ONETIME ONE Stop: 07/01/17 04:11 Last Admin: 07/01/17 02:48 Dose: 25 mls/hr Propofol (Diprivan 100 Ml) Confirm Administered Dose 100 mls @ as directed .ROUTE .STK-MED ONE Stop: 07/01/17 12:56 Last Admin: 07/01/17 17:55 Dose: Not Given Fentanyl 2,500 mcg/ Sodium (Chloride) 250 mls @ 6.45 mls/hr IV TITRATE REX; Protocol Last Titration: 07/01/17 14:58 Dose: 1.55 mcg/kg/hr, 10 mls/hr Propofol (Diprivan 100 Ml) 100 mls @ 1.935 mls/hr IV TITRATE REX; Protocol Last Titration: 07/03/17 07:33 Dose: 0 mcg/kg/min, 0 mls/hr Dextrose/Sodium Chloride (Dextrose 5%-Normal Saline) 1,000 mls @ 75 mls/hr IV ASDIRECTED REX Last Admin: 07/03/17 08:59 Dose: 75 mls/hr Fentanyl 2,500 mcg/ Sodium (Chloride) 250 mls @ 1 mls/hr IV TITRATE REX; Protocol Last Titration: 07/03/17 07:34 Dose: 0 mcg/hr, 0 mls/hr Azithromycin 500 mg/ Sodium (Chloride) 250 mls @ 250 mls/hr IV ONETIME ONE Stop: 07/02/17 21:59 Last Admin: 07/02/17 21:11 Dose: 250 mls/hr Levalbuterol HCl (Xopenex) 1.25 mg NEB Q8HR [facility] Last Admin: 07/04/17 06:38 Dose: 1.25 mg Methylprednisolone Sodium Succinate (Solu-Medrol) 125 mg IVPUSH ONETIME ONE Stop: 07/01/17 09:01 Last Admin: 07/01/17 09:17 Dose: 125 mg Methylprednisolone Sodium Succinate (Solu-Medrol) 80 mg IVPUSH Q8H [facility] Last Admin: 07/04/17 08:49 Dose: 80 mg Metoprolol Tartrate (Lopressor) 50 mg PO Q12HR [facility] Midazolam HCl (Versed 1 Mg/Ml) Confirm Administered Dose 6 mg .ROUTE .STK-MED ONE Stop: 05/16/18 15:17 Last Admin: 07/01/17 18:05 Dose: Not Given Midazolam HCl (Versed 1 Mg/Ml) 5 mg IVPUSH ONETIME ONE Stop: 07/01/17 13:07 Last Admin: 07/01/17 17:55 Dose: 5 mg Midazolam HCl (Versed 1 Mg/Ml) 5 mg IVPUSH ONETIME ONE Stop: 07/01/17 15:20 Last Admin: 07/01/17 18:07 Dose: Not Given Midazolam HCl (Versed 1 Mg/Ml) 5 mg IVPUSH ONETIME ONE Stop: 07/01/17 15:20 Last Admin: 07/01/17 15:19 Dose: 5 mg Modafinil (Provigil) 100 mg PO ONETIME ONE Stop: 07/02/17 08:01 Last Admin: 07/02/17 23:10 Dose: Not Given Modafinil (Provigil) 100 mg PO ONETIME ONE Stop: 07/03/17 08:01 Last Admin: 07/03/17 09:42 Dose: 100 mg Morphine Sulfate (Morphine) 1 mg IVPUSH Q2H PRN PRN Reason: Other Stop: 07/02/17 02:09 Last Admin: 07/01/17 11:09 Dose: 1 mg Naloxone HCl (Narcan) 0.4 mg IVPUSH ONETIME ONE Stop: 07/01/17 12:31 Naloxone HCl (Narcan) 0.4 mg IVPUSH ONETIME ONE Stop: 07/01/17 12:31 Last Admin: 07/01/17 12:29 Dose: 0.4 mg Pantoprazole Sodium (Protonix Iv) 40 mg IVPUSH DAILY [facility] Last Admin: 07/03/17 09:51 Dose: 40 mg Pantoprazole Sodium (Protonix) 40 mg PO DAILY [facility] Potassium Chloride (Klor-Con M20) 40 meq PO ONETIME ONE Stop: 07/01/17 09:01 Last Admin: 07/01/17 08:56 Dose: 40 meq Prednisone (Prednisone) 20 mg PO BID [facility] Rocuronium Baker (Zemuron) 40 mg IVPUSH ONETIME ONE Stop: 07/01/17 13:08 Last Admin: 07/01/17 17:55 Dose: 40 mg Tiotropium Baker (Spiriva Handihaler) 18 mcg INH DAILY [facility] Last Admin: 07/01/17 09:33 Dose: 1 cap Tiotropium Baker (Spiriva Handihaler) 18 mcg INH DAILY PRN PRN Reason: Shortness of Breath - Exam Quality Assessment: Supplemental Oxygen General: Alert, Oriented, Cooperative, No Acute Distress HEENT: Pupils Equal, Pupils Reactive, EOMI, Mucous Membr. Moist/Ivins Neck: Supple, Trachea Midline, No JVD, No Thyromegaly Lungs: Normal Respiratory Effort, Crackles (at the bases) Cardiovascular: Irregular Rhythm, Other (Irregular Rate) GI/Abdominal Exam: Normal Bowel Sounds, Soft, Non-Tender, No Organomegaly, No Distention, No Abnormal Bruit, No Mass (Female) Exam: Deferred Back Exam: Normal Inspection, Decreased Range of Motion Extremities: Normal Inspection, Normal Range of Motion, Non-Tender, No Pedal Edema, Normal Capillary Refill Peripheral Pulses: 2+: Dorsalis Pedis (L), Dorsalis Pedis (R) Skin: Warm, Dry, Intact Neurological: No New Focal Deficit Psy/Mental Status: Alert, Normal Affect, Normal Mood - Problem List Review Problem List Initiated/Reviewed/Updated: Yes - My Orders Last 24 Hours: My Active Orders 07/04/17 06:38 Admission Status [Patient Status] [ADT] Routine 07/04/17 07:33 Echo Comp wo Cont [US] Routine 07/04/17 09:00 Furosemide [Lasix] 20 mg PO DAILY 07/04/17 12:28 RT Aerosol Therapy [RC] ASDIRECTED 07/04/17 14:00 Albuterol/Ipratropium [DuoNeb 3.0-0.5 MG/3 ML] 3 ml NEB TID@0700,1400,2100 ClonazePAM [KlonoPIN] 0.5 mg PO TID@0600,1400,2100 07/04/17 16:00 methylPREDNISolone Sod Succ [Solu-MEDROL] 40 mg IVPUSH Q8H 07/04/17 16:02 CHAPITO Hose [Antiembolic Hose] [OM.PC] Routine - Plan Plan:: Assessment/Plan: Acute: COPD Exacerbation, Continues to Improve - Has baseline Mod-Severe COPD - Continue Steroids/Bronchodilators/IV Magnesium/IV Azithromycin - Change IV Steroid to 40 mg IVP TID and added scheduled Douneb 3 ml TIDRT - Pulmonary Rehab after discharge Congestive Heart Failure/Pulmonary Edema - ProBNP 3923--> now 1692 - Likely induced by atrial fibrillation - Heart failure protocol - Latest 2D echo from [facility]: LVEF 55-60% with Moderately reduced RV systolic function and Moderately dilated Left Atrium 04/20/2017 Anxiety, Improved - 2/2 Medical Condition - Continue Knonopin 0.5 mg po TID Labile HTN - Lasix 20 mg po Daily, Metoprolol 75 mg po BID, and Losartan 25 mg po daily - She is saline lock - Will add Clonidine 0.1 mg po BID for optimal control; continue PRN IV Lopressor Resolved: S/p Hypomagnesemia - 2/2 inadequate intake - Mg 1.7 --> 1.8 - Replete and monitor S/p Afib with RVR - HR in 140s - Thyroid panel - Cardizem drip; titrate to keep HR < 100 - Continue BB and Digoxin - Stroke PPx: Xarelto S/p Malignant HTN, Improved - BP 205/149 mmHg - Resume BP medications - She is now on Cardizem drip S/p Acute Respiratory Failure - 2/2 COPD Exacerbation - On Mechanical Ventilation - CXR post extubation - Plan for extubation once team is here Chronic: HTN HLD Advanced COPD Anxiety Hx/o [place] Plan: She continues to improve clinically Routine AM Labs Continue PT/OT DVT/GI PPx: Xarelto and H2B SW/CM for d/c planning Encourage to use IS and Ambulate as tolerated Additional orders as above Code status:1 LOS > 96 hrs due to slow response to treatment and may need further deconditioning.
[2017-07-05] MEDS: ClonazePAM 0.5 MG Tab PO SCH ×3 (07:26→21:40)
[2017-07-05] MEDS: hydrALAZINE 20 MG/ML SDV IVPUSH PRN ×2 (07:52→16:59)
[2017-07-05] MEDS: Tiotropium Inhaler 18 MCG Inhalation Powder Cap Kit of 5 INH SCH (08:42)
[2017-07-05] MEDS: Albuterol/Ipratropium 3.0-0.5 MG/3 ML Neb Soln NEB SCH ×3 (08:43→20:59)
[2017-07-05] MEDS: Magnesium Oxide 400 MG Tab PO SCH (09:29)
[2017-07-05] MEDS: guaiFENesin 600 MG Tab.ER PO SCH ×2 (09:29→21:41)
[2017-07-05] MEDS: Furosemide 20 MG Tab PO SCH (09:29)
[2017-07-05] MEDS: Famotidine 20 MG Tab PO SCH (09:29)
[2017-07-05] MEDS: Aspirin 81 MG Tab.EC PO SCH (09:29)
[2017-07-05] MEDS: Fish Oil/Omega-3 Fatty Acids 1 Gm Cap PO SCH (09:30)
[2017-07-05] MEDS: Rivaroxaban 10 MG Tab PO SCH (09:30)
[2017-07-05] MEDS: Multivitamins with Minerals/Folic Acid/Lutein/Zeaxanth Tab PO SCH (09:30)
[2017-07-05] MEDS: Citalopram 10 MG Tab PO SCH (09:30)
[2017-07-05] MEDS: Acetaminophen 325 MG Tab PO PRN (09:30)
[2017-07-05] MEDS: methylPREDNISolone Sodium Succinate 40 MG/1 ML SDV IVPUSH SCH ×2 (09:34→15:29)
[2017-07-05] MEDS: Losartan 25 MG Tab PO SCH (10:15)
[2017-07-05] MEDS: Metoprolol Tartrate 25 MG Tab PO SCH ×2 (10:15→21:38)
[2017-07-05] MEDS: Digoxin 125 MCG Tab PO SCH (11:28)
[2017-07-05] MEDS ORDERED: Azithromycin 250 MG Tab PO SCH (21:00)
[2017-07-05] MEDS: cloNIDine 0.1 MG Tab PO SCH (21:41)
[2017-07-05] MEDS: Simvastatin 10 MG Tab PO SCH (21:43)
[2017-07-06] MEDS: methylPREDNISolone Sodium Succinate 40 MG/1 ML SDV IVPUSH SCH ×2 (00:35→09:32)
[2017-07-06] MEDS: hydrALAZINE 20 MG/ML SDV IVPUSH PRN (04:15)
[2017-07-06] MEDS: ClonazePAM 0.5 MG Tab PO SCH (06:18)
[2017-07-06] MEDS: Tiotropium Inhaler 18 MCG Inhalation Powder Cap Kit of 5 INH SCH (08:55)
[2017-07-06] MEDS: Albuterol/Ipratropium 3.0-0.5 MG/3 ML Neb Soln NEB SCH ×2 (08:56→13:26)
[2017-07-06] MEDS: Multivitamins with Minerals/Folic Acid/Lutein/Zeaxanth Tab PO SCH (09:32)
[2017-07-06] MEDS: Rivaroxaban 10 MG Tab PO SCH (09:32)
[2017-07-06] MEDS: Furosemide 20 MG Tab PO SCH (09:35)
[2017-07-06] MEDS: cloNIDine 0.1 MG Tab PO SCH (09:35)
[2017-07-06] MEDS: guaiFENesin 600 MG Tab.ER PO SCH (09:35)
[2017-07-06] MEDS: Fish Oil/Omega-3 Fatty Acids 1 Gm Cap PO SCH (09:37)
[2017-07-06] MEDS: Aspirin 81 MG Tab.EC PO SCH (09:37)
[2017-07-06] MEDS: Losartan 25 MG Tab PO SCH (09:38)
[2017-07-06] MEDS: Citalopram 10 MG Tab PO SCH (09:38)
[2017-07-06] MEDS: Famotidine 20 MG Tab PO SCH (09:39)
[2017-07-06] MEDS: Metoprolol Tartrate 25 MG Tab PO SCH (09:39)
[2017-07-06] MEDS: Digoxin 125 MCG Tab PO SCH (11:57)
--- NOTE | 2017-07-06 14:02 | PCM.DCSUM1 ---
Discharge Summary - Hospital Course Brief History: This is a 71-year-old white female with past medical history of impaired vision, chronic atrial fibrillation on xarelto, heart failure with unknown EF, hyperlipidemia, hypertension, history of HI, dyspnea on exertion, COPD on 1 L nasal cannula, history of recurrent pneumonia, osteoarthritis, chronic vertigo, anxiety, who comes in for worsening heart palpitation for the last few days particularly this past Thursday. Her symptom was associated with shortness of breath with chest discomfort that prompted her to call for ambulance. When paramedics arrived, her heart rate was in the 220s appearing look like SVT therefore she received an adenosine and her heart rate came down to the 150s. Upon presentation to the emergency department, the patient was immediately put on Cardizem with nitroglycerin drip. She also received aspirin along with albuterol treatment before she was sent to the unit for further treatment. Her initial workup in emergency department shows a CBC remarkable for WBC of 18.61, MCHC of 31.4, RDW of 20.7, neutrophils of 77%, and lymphocytes of 12%. Her chemistry is remarkable for chloride of 97, creatinine of 1.1, glucose of 142, magnesium 1.7, AST of 42, ALT of 66, CRP of 2.3, proBNP of 3923, and digoxin level of 0.8. Her chest x-ray shows emphysematous change and no acute abnormalities appreciated. Patient is being admitted for COPD exacerbation and atrial fibrillation with RVR. She is full code. - Discharge Data Discharge Date: 07/06/17 Discharge Disposition: Home, Self-Care 01 Condition: Good - Discharge Diagnosis/Problem(s) (1) Paroxysmal atrial fibrillation with RVR SNOMED Code(s): 631195734, 204757624158947 ICD Code: I48.0 - PAROXYSMAL ATRIAL FIBRILLATION Status: Resolved (2) COPD exacerbation SNOMED Code(s): 977205477 ICD Code: J44.1 - CHRONIC OBSTRUCTIVE PULMONARY DISEASE W (ACUTE) EXACERBATION Status: Resolved Priority: High (3) Congestive heart failure (CHF) SNOMED Code(s): 83215434 ICD Code: I50.9 - HEART FAILURE, UNSPECIFIED Status: Resolved Qualifiers: Heart failure type: diastolic (4) Acute respiratory failure with hypoxia and hypercapnia SNOMED Code(s): 621972737 ICD Code: J96.01 - ACUTE RESPIRATORY FAILURE WITH HYPOXIA; J96.02 - ACUTE RESPIRATORY FAILURE WITH HYPERCAPNIA Status: Resolved (5) Malignant essential hypertension SNOMED Code(s): 46515601 ICD Code: I10 - ESSENTIAL (PRIMARY) HYPERTENSION Status: Resolved (6) Hypomagnesemia SNOMED Code(s): 319904135 ICD Code: E83.42 - HYPOMAGNESEMIA Status: Resolved (7) Anxiety about health SNOMED Code(s): 325320342 ICD Code: F41.8 - OTHER SPECIFIED ANXIETY DISORDERS Status: Resolved - Patient Summary/Data Operative Procedure(s) Performed: None Complications: None Consults: Consultations 07/01/17 02:10 Consult to Case Management [CONS] Routine Consult to Rehabilitator [CONS] Routine Consult to Spiritual Care [CONS] Routine OT Evaluation and Treatment [CONS] Routine PT Evaluation and Treatment [CONS] Routine Respiratory Care Assess and Treatment [CONS] Routine 07/03/17 08:30 Consult to Speech Language Pathology [LINE INSPECTOR Evaluation and Treatment] [CONS] Routine Labs Pending at D/C: None Recommended Follow-up Testing/Procedures: None Planned Operative Procedure(s) after DC: None - Patient Instructions Diet: Heart Healthy Diet, Usual Diet as Tolerated, Low Sodium Activity: As Tolerated Driving: Do Not Drive Showering/Bathing: May Shower Notify Provider of: Fever, Increased Pain, Swelling and Redness, Drainage, Nausea and/or Vomiting Other/Special Instructions: - Please take all new medications as directed. - Resume all home medication regimen as usual. - Follow low salt diet to prevent fluid retention or edema. - Recommend pulmonary rehab after discharge. - Check your blood pressure and heart rate at least x3 a day and show log on follow up appointment with your PCP. - Follow up or call your family doctor for any questions or concerns after discharge. - Follow up with your PCP in 1 week. - Come back or seek immediate care should your symptoms persist or get worse - Discharge Plan Prescriptions/Med Rec: Levalbuterol HCl [Xopenex] 1.25 mg NEB Q4HRRT PRN #60 neb PRN Reason: Shortness Of Breath ClonazePAM [KlonoPIN] 0.5 mg PO TID@0600,1400,2100 #90 tablet Fluticasone/Salmeterol [Advair Hfa 230-21 Mcg Inhaler] 1 puff IH BID #1 aer.w.adap Ipratropium [place] [Atrovent Hfa] 12.9 gm IH ASDIRECTED PRN #1 hfa.aer.ad PRN Reason: COPD Levalbuterol Tartrate [Xopenex Hfa] 15 gm IH ASDIRECTED PRN #1 hfa.aer.ad PRN Reason: COPD Metoprolol Tartrate 25 mg PO BID #120 tablet Potassium Chloride 20 meq PO ASDIRECTED #30 tablet.er Home Medications: Home Meds Aspirin [Low Dose Aspirin EC] 81 mg PO DAILY 04/23/17 [History] [place]-3 Fatty Acids/Fish Oil [Fish Oil 1,200 mg Softgel] 1 cap PO DAILY [History] Pravastatin Sodium 20 mg PO DAILY 04/23/17 [History] Psyllium Husk [Psyllium Fiber] 0.52 gm PO DAILY 04/23/17 [History] Rivaroxaban [Xarelto] 20 mg PO DAILY 04/23/17 [History] Valsartan 40 mg PO DAILY 04/23/17 [History] Citalopram Hydrobromide [Celexa] 10 mg PO DAILY 04/27/17 [History] guaiFENesin [Mucinex] 1,200 mg PO BID #60 tab.er 04/27/17 [Rx] B2/Vit A,C & E/Lut/Zeaxanth/Mn [Icaps] 2 cap PO DAILY 07/01/17 [History] Digoxin 125 mcg PO DAILY 07/01/17 [History] ClonazePAM [KlonoPIN] 0.5 mg PO TID@0600,1400,2100 #90 tablet 07/06/17 [Rx] Fluticasone/Salmeterol [Advair Hfa 230-21 Mcg Inhaler] 1 puff IH BID #1 aer.w.adap 07/06/17 [Rx] Furosemide [Lasix] 20 mg PO ASDIRECTED PRN #90 07/06/17 [Rx] Ipratropium [place] [Atrovent Hfa] 12.9 gm IH ASDIRECTED PRN #1 hfa.aer.ad 07/06 [Rx] Levalbuterol HCl [Xopenex] 1.25 mg NEB Q4HRRT PRN #60 neb 07/06/17 [Rx] Levalbuterol Tartrate [Xopenex Hfa] 15 gm IH ASDIRECTED PRN #1 hfa.aer.ad [Rx] Metoprolol Tartrate 25 mg PO BID #120 tablet 07/06/17 [Rx] Potassium Chloride 20 meq PO ASDIRECTED #30 tablet.er 07/06/17 [Rx] Patient Handouts: Chronic Obstructive Pulmonary Disease Exacerbation, Easy-to- Read, Generalized Anxiety Disorder, Adult, Hypertension, [id number], Acute Respiratory Failure, Adult, Heart Failure, [id number], Atrial Fibrillation, [id number] Referrals: Alfa Reid MD [Primary Care Provider] - (Discuss having a TDaP vaccine.) - Discharge Summary/Plan Comment DC Time >30 min.: Yes (45 mins) Discharge Summary/Plan Comment: Discharge to Home - General Info Date of Service: 07/06/17 Admission Dx/Problem (Free Text: Admission Diagnosis/Problem Admission Diagnosis/Problem Acute pulmonary edema Subjective Update: Follow Up Functional Status: Reports: Pain Controlled, Tolerating Diet, Ambulating, Urinating - Review of Systems General: Reports: Weakness, Fatigue. Denies: Fever, Malaise, Chills HEENT: Reports: No Symptoms Pulmonary: Reports: Shortness of Breath (baseline). Denies: Pleuritic Chest Pain, Cough, Sputum, Wheezing Cardiovascular: Denies: Chest Pain, Palpitations, Dyspnea on Exertion, Edema, Lightheadedness Gastrointestinal: Denies: Abdominal Pain, Nausea, Vomiting Genitourinary: Reports: No Symptoms Musculoskeletal: Reports: No Symptoms Skin: Denies: Cyanosis, Mottled, Pallor, Diaphoresis Neurological: Reports: Weakness, Gait Disturbance. Denies: Confusion, Pre- Existing Deficit Psychiatric: Denies: Mood Lability, Anxiety, Agitation Systems Review Comment: No overnight or acute issues. She slept pretty good last night but feels weak and tired this morning. She is at baseline with her shortness of breath. she has no new complaints. - Patient Data Vitals - Most Recent: Last Vital Signs Temp 36.3 C 07/06/17 09:39 Pulse 92 07/06/17 11:58 Resp 14 07/06/17 09:39 BP 117/59 L 07/06/17 09:39 Pulse Ox 95 07/06/17 11:58 Weight - Most Recent: 66.224 kg I&O - Last 24 hours: Intake & Output 07/05/17 07/06/17 07/06/17 22:59 06:59 14:59 Intake Total 400 200 180 Output Total 600 400 Balance -200 -200 180 Imaging Impressions - Last 24 hrs: Pulmonary function test 07/06/2017 report shows FVC, FEV1, FEV1/FVC ratio and FEF 25-75% are reduced indicating airway obstruction. Conclusion severe obstructive airway disease. Med Orders - Current: Current Medications Acetaminophen (Tylenol) 650 mg PO Q4H PRN PRN Reason: Pain (Mild 1-3)/fever Last Admin: 07/05/17 09:30 Dose: 650 mg Hydrocodone Bitart/Acetaminophen ([place] 325-5 Mg) 1 tab PO Q4H PRN PRN Reason: Pain (moderate 4-6) Al Hydroxide/Mg Hydroxide (Mag-Al Plus) 30 ml PO Q4H PRN PRN Reason: Heartburn Last Admin: 07/03/17 21:27 Dose: 30 ml Albuterol/Ipratropium (Duoneb 3.0-0.5 Mg/3 Ml) 3 ml NEB TID@0700,1400,2100 [facility] Last Admin: 07/06/17 13:26 Dose: 3 ml Aspirin (Halfprin) 81 mg PO DAILY [facility] Last Admin: 07/06/17 09:37 Dose: 81 mg Azithromycin (Zithromax) 250 mg PO Q24H [facility] Last Admin: 07/05/17 21:43 Dose: 250 mg Bisacodyl (Dulcolax) 5 mg PO DAILY PRN PRN Reason: Constipation Last Admin: 07/03/17 09:44 Dose: 5 mg Citalopram Hydrobromide (Celexa) 10 mg PO DAILY [facility] Last Admin: 07/06/17 09:38 Dose: 10 mg Clonazepam (Klonopin) 0.5 mg PO TID@0600,1400,2100 [facility] Last Admin: 07/06/17 06:18 Dose: 0.5 mg Clonidine HCl (Catapres) 0.1 mg PO Q12HR [facility] Last Admin: 07/06/17 09:35 Dose: 0.1 mg Digoxin (Lanoxin) 125 mcg PO DAILY@1200 [facility] Last Admin: 07/06/17 11:57 Dose: 125 mcg Docusate Sodium (Colace) 100 mg PO BID PRN PRN Reason: Constipation Famotidine (Pepcid) 20 mg PO DAILY [facility] Last Admin: 07/06/17 09:39 Dose: 20 mg Fish Oil (Fish Oil) 1 gm PO DAILY [facility] Last Admin: 07/06/17 09:37 Dose: Not Given Furosemide (Lasix) 20 mg PO DAILY [facility] Last Admin: 07/06/17 09:35 Dose: 20 mg Guaifenesin (Mucinex) 1,200 mg PO BID [facility] Last Admin: 07/06/17 09:35 Dose: 1,200 mg Hydralazine HCl (Apresoline) 20 mg IVPUSH Q4H PRN PRN Reason: Hypertension Last Admin: 07/06/17 04:15 Dose: 20 mg Promethazine HCl 12.5 mg/ (Sodium Chloride) 50.5 mls @ 100 mls/hr IV Q6H PRN PRN Reason: Nausea/Vomiting Levalbuterol HCl (Xopenex) 1.25 mg NEB Q4HRRT PRN PRN Reason: Shortness of Breath Last Admin: 07/04/17 03:17 Dose: 1.25 mg Lorazepam (Ativan) 0.5 mg PO BID PRN PRN Reason: Anxiety Last Admin: 07/01/17 08:51 Dose: 0.5 mg Lorazepam (Ativan) 2 mg IVPUSH Q4H PRN PRN Reason: Seizures Lorazepam (Ativan) 0.5 mg IV Q6H PRN PRN Reason: Anxiety Last Admin: 07/03/17 21:27 Dose: 0.5 mg Losartan Potassium (Cozaar) 25 mg PO DAILY [facility] Last Admin: 07/06/17 09:38 Dose: 25 mg Magnesium Sulfate (Pharmacy To Dose - Magnesium Replacement) 0 dose .XX ASDIRECTED PRN PRN Reason: RX TO WATCH MAG LEVELS Metoprolol Tartrate (Lopressor) 5 mg IVPUSH Q4H PRN PRN Reason: Tachycardia Last Admin: 07/03/17 07:37 Dose: 5 mg Metoprolol Tartrate (Lopressor) 75 mg PO Q12HR [facility] Last Admin: 07/06/17 09:39 Dose: 75 mg Ondansetron HCl (Zofran) 4 mg IV Q6H PRN PRN Reason: Nausea/Vomiting Polyethylene Glycol (Miralax) 17 gm PO DAILY PRN PRN Reason: Constipation Potassium Chloride (Pharmacy To Dose - Potassium Replacement) 0 dose .XX ASDIRECTED PRN PRN Reason: RX TO WATCH K LEVELS Rivaroxaban (Xarelto) 15 mg PO DAILY [facility] Last Admin: 07/06/17 09:32 Dose: 15 mg Senna/Docusate Sodium (Senna Plus) 1 tab PO BID PRN PRN Reason: Constipation Simvastatin (Zocor) 10 mg PO BEDTIME [facility] Last Admin: 07/05/17 21:43 Dose: 10 mg Sodium Chloride (Saline Flush) 10 ml FLUSH ASDIRECTED PRN PRN Reason: Keep Vein Open Last Admin: 07/01/17 01:46 Dose: 10 ml Temazepam (Restoril) 7.5 mg PO BEDTIME PRN PRN Reason: Sleep Last Admin: 07/05/17 01:47 Dose: 7.5 mg Tiotropium [place] (Spiriva Handihaler) 18 mcg INH DAILY@0600 [facility] Last Admin: 07/06/17 08:55 Dose: 1 cap Vit A/Vit C/Vit E/Selen/Cu/Zn/Lutei (Icaps Mv) 2 tab PO DAILY [facility] Last Admin: 07/06/17 09:32 Dose: 2 tab Discontinued Medications Acetaminophen (Tylenol) 975 mg PO NOW ONE Stop: 07/01/17 01:27 Last Admin: 07/01/17 01:46 Dose: 975 mg Adenosine (Adenocard) Confirm Administered Dose 12 mg .ROUTE .STK-MED ONE Stop: 07/01/17 00:39 Last Admin: 07/04/17 07:33 Dose: Not Given Albuterol (Proventil Neb Soln) 2.5 mg NEB QID PRN PRN Reason: SOB/Wheezing Albuterol/Ipratropium (Duoneb 3.0-0.5 Mg/3 Ml) 3 ml NEB QIDRT [facility] Last Admin: 07/01/17 05:01 Dose: 3 ml Azithromycin (Zithromax) 500 mg IV Q24H [facility] Azithromycin (Zithromax) 500 mg IV Q24H [facility] Bumetanide (Bumex) 1 mg IVPUSH ONETIME ONE Stop: 07/02/17 21:07 Last Admin: 07/02/17 22:10 Dose: 1 mg Bumetanide (Bumex) 0.5 mg IVPUSH ONETIME ONE Stop: 07/03/17 07:01 Last Admin: 07/03/17 07:22 Dose: 0.5 mg Bumetanide (Bumex) 0.5 mg IVPUSH ONETIME ONE Stop: 07/03/17 19:53 Last Admin: 07/03/17 20:01 Dose: Not Given Bumetanide (Bumex) 1 mg IVPUSH ONETIME ONE Stop: 07/03/17 20:00 Last Admin: 07/03/17 20:40 Dose: 1 mg Clonazepam (Klonopin) 0.5 mg PO ASDIRECTED [facility] Digoxin (Lanoxin) 125 mcg PO DAILY@1200 [facility] Digoxin (Lanoxin) 250 mcg PO DAILY@1200 [facility] Last Admin: 07/01/17 18:03 Dose: Not Given Digoxin (Lanoxin) 125 mcg IVPUSH DAILY@1200 [facility] Digoxin (Lanoxin) 250 mcg IVPUSH ONETIME ONE Stop: 07/01/17 12:31 Last Admin: 07/01/17 12:36 Dose: 250 mcg Diltiazem HCl (Diltiazem) 10 mg IVPUSH ONETIME ONE Stop: 07/01/17 00:54 Last Admin: 07/01/17 00:56 Dose: 10 mg Diltiazem HCl (Diltiazem) 10 mg IVPUSH ONETIME ONE Stop: 07/03/17 08:03 Last Admin: 07/03/17 08:02 Dose: 10 mg Etomidate (Amidate) 20 mg IVPUSH ONETIME ONE Stop: 07/01/17 13:09 Last Admin: 07/01/17 17:56 Dose: 20 mg Furosemide (Lasix) 40 mg IVPUSH NOW ONE Stop: 07/01/17 00:58 Last Admin: 07/01/17 01:10 Dose: 40 mg Furosemide (Lasix) 20 mg PO DAILY [facility] Last Admin: 07/02/17 08:38 Dose: 20 mg Furosemide (Lasix) 40 mg IVPUSH NOW ONE Stop: 07/01/17 16:47 Last Admin: 07/01/17 16:59 Dose: 40 mg Diltiazem HCl 125 mg/ Sodium (Chloride) 125 mls @ 10 mls/hr IV ASDIRECTED [facility]EX Last Infusion: 07/01/17 10:17 Dose: 0 mg/hr, 0 mls/hr Nitroglycerin/Dextrose (Nitroglycerin 25 Mg/D5w 250 Ml) 25 mg in 250 mls @ 6 mls/hr IV ASDIRECTED REX Last Infusion: 07/01/17 07:53 Dose: 0 mcg/min, 0 mls/hr Sodium Chloride (Normal Saline) 1,000 mls @ 75 mls/hr IV ASDIRECTED REX Last Admin: 07/01/17 02:48 Dose: 75 mls/hr Magnesium Sulfate 2 gm/ Premix 50 mls @ 25 mls/hr IV ONETIME ONE Stop: 07/01/17 04:11 Last Admin: 07/01/17 02:48 Dose: 25 mls/hr Propofol (Diprivan 100 Ml) Confirm Administered Dose 100 mls @ as directed .ROUTE .STK-MED ONE Stop: 07/01/17 12:56 Last Admin: 07/01/17 17:55 Dose: Not Given Fentanyl 2,500 mcg/ Sodium (Chloride) 250 mls @ 6.45 mls/hr IV TITRATE REX; Protocol Last Titration: 07/01/17 14:58 Dose: 1.55 mcg/kg/hr, 10 mls/hr Propofol (Diprivan 100 Ml) 100 mls @ 1.935 mls/hr IV TITRATE REX; Protocol Last Titration: 07/03/17 07:33 Dose: 0 mcg/kg/min, 0 mls/hr Dextrose/Sodium Chloride (Dextrose 5%-Normal Saline) 1,000 mls @ 75 mls/hr IV ASDIRECTED REX Last Admin: 07/03/17 08:59 Dose: 75 mls/hr Fentanyl 2,500 mcg/ Sodium (Chloride) 250 mls @ 1 mls/hr IV TITRATE REX; Protocol Last Titration: 07/03/17 07:34 Dose: 0 mcg/hr, 0 mls/hr Azithromycin 500 mg/ Sodium (Chloride) 250 mls @ 250 mls/hr IV ONETIME ONE Stop: 07/02/17 21:59 Last Admin: 07/02/17 21:11 Dose: 250 mls/hr Azithromycin 500 mg/ Sodium (Chloride) 250 mls @ 250 mls/hr IV Q24H [facility] Last Admin: 07/04/17 21:04 Dose: 250 mls/hr Levalbuterol HCl (Xopenex) 1.25 mg NEB Q8HR [facility] Last Admin: 07/04/17 06:38 Dose: 1.25 mg Magnesium Oxide (Magnesium Oxide) 400 mg PO BID [facility] Last Admin: 07/05/17 09:29 Dose: 400 mg Methylprednisolone Sodium Succinate (Solu-Medrol) 125 mg IVPUSH ONETIME ONE Stop: 07/01/17 09:01 Last Admin: 07/01/17 09:17 Dose: 125 mg Methylprednisolone Sodium Succinate (Solu-Medrol) 80 mg IVPUSH Q8H [facility] Last Admin: 07/04/17 08:49 Dose: 80 mg Methylprednisolone Sodium Succinate (Solu-Medrol) 40 mg IVPUSH Q8H [facility] Last Admin: 07/06/17 09:32 Dose: 40 mg Metoprolol Tartrate (Lopressor) 50 mg PO Q12HR [facility] Midazolam HCl (Versed 1 Mg/Ml) Confirm Administered Dose 6 mg .ROUTE .STK-MED ONE Stop: 07/01/17 15:17 Last Admin: 07/01/17 18:05 Dose: Not Given Midazolam HCl (Versed 1 Mg/Ml) 5 mg IVPUSH ONETIME ONE Stop: 07/01/17 13:07 Last Admin: 07/01/17 17:55 Dose: 5 mg Midazolam HCl (Versed 1 Mg/Ml) 5 mg IVPUSH ONETIME ONE Stop: 07/01/17 15:20 Last Admin: 07/01/17 18:07 Dose: Not Given Midazolam HCl (Versed 1 Mg/Ml) 5 mg IVPUSH ONETIME ONE Stop: 07/01/17 15:20 Last Admin: 07/01/17 15:19 Dose: 5 mg Modafinil (Provigil) 100 mg PO ONETIME ONE Stop: 07/02/17 08:01 Last Admin: 07/02/17 23:10 Dose: Not Given Modafinil (Provigil) 100 mg PO ONETIME ONE Stop: 07/03/17 08:01 Last Admin: 07/03/17 09:42 Dose: 100 mg Morphine Sulfate (Morphine) 1 mg IVPUSH Q2H PRN PRN Reason: Other Stop: 07/02/17 02:09 Last Admin: 07/01/17 11:09 Dose: 1 mg Naloxone HCl (Narcan) 0.4 mg IVPUSH ONETIME ONE Stop: 07/01/17 12:31 Naloxone HCl (Narcan) 0.4 mg IVPUSH ONETIME ONE Stop: 07/01/17 12:31 Last Admin: 07/01/17 12:29 Dose: 0.4 mg Pantoprazole Sodium (Protonix Iv) 40 mg IVPUSH DAILY [facility] Last Admin: 07/03/17 09:51 Dose: 40 mg Pantoprazole Sodium (Protonix) 40 mg PO DAILY [facility] Potassium Chloride (Klor-Con M20) 40 meq PO ONETIME ONE Stop: 07/01/17 09:01 Last Admin: 07/01/17 08:56 Dose: 40 meq Prednisone (Prednisone) 20 mg PO BID [facility] Rocuronium [place] (Zemuron) 40 mg IVPUSH ONETIME ONE Stop: 07/01/17 13:08 Last Admin: 07/01/17 17:55 Dose: 40 mg Tiotropium [place] (Spiriva Handihaler) 18 mcg INH DAILY [facility] Last Admin: 07/01/17 09:33 Dose: 1 cap Tiotropium [place] (Spiriva Handihaler) 18 mcg INH DAILY PRN PRN Reason: Shortness of Breath - Exam Quality Assessment: Reports: Supplemental Oxygen General: Reports: Alert, Oriented, Cooperative, No Acute Distress HEENT: Reports: Pupils Equal, Pupils Reactive, EOMI, Mucous Membr. Moist/[place] Neck: Reports: Supple, Trachea Midline, No JVD, No Thyromegaly Lungs: Reports: Clear to Auscultation, Normal Respiratory Effort, Decreased Breath Sounds Cardiovascular: Reports: Irregular Rhythm, Other (Irregular rate) GI/Abdominal Exam: Normal Bowel Sounds, Soft, Non-Tender, No Organomegaly, No Distention, No Abnormal Bruit, No Mass (Female) Exam: Deferred Rectal (Female) Exam: Deferred Back Exam: Reports: Normal Inspection, Decreased Range of Motion Extremities: Normal Inspection, Normal Range of Motion, Non-Tender, No Pedal Edema, Normal Capillary Refill Skin: Reports: Warm, Dry, Intact Neurological: Reports: No New Focal Deficit Psy/Mental Status: Reports: Alert, Normal Affect, Normal Mood
[2017-07-06] MEDS ORDERED: cloNIDine 0.1 MG Tab PO SCH (21:00)
[2017-07-07] MEDS ORDERED: Famotidine 20 MG Tab PO SCH (09:00)
[2017-07-07] MEDS ORDERED: Citalopram 20 MG Tab PO SCH (09:00)
== END 2017-07-06 15:21 | disposition home or self-care (01) | DRG 208 ==
LOC: JD.ED 00:46 → JD.ICU 02:07 → JD.MS 07-04 18:50
PROVIDERS: ADMIT Internal Medicine; ATTEND Internal Medicine
PROC: 5A1945Z Respiratory Ventilation, 24-96 Consecutive Hours (ICD-10-PCS; principal; 2017-07-01)
PROC: 5A09357 Assistance with Respiratory Ventilation, Less than 24 Consecutive Hours, Continuous Positive Airway Pressure (ICD-10-PCS; 2017-07-01)
PROC: 4A133B1 Monitoring of Arterial Pressure, Peripheral, Percutaneous Approach (ICD-10-PCS; 2017-07-01)
PROC: 039Y3ZZ Drainage of Upper Artery, Percutaneous Approach (ICD-10-PCS; 2017-07-01)
PROC: 0BH17EZ Insertion of Endotracheal Airway into Trachea, Via Natural or Artificial Opening (ICD-10-PCS; 2017-07-01)
DX: J44.1 Chronic obstructive pulmonary disease with (acute) exacerbation (principal); J96.02 Acute respiratory failure with hypercapnia; J96.01 Acute respiratory failure with hypoxia; R06.03 Acute respiratory distress; I50.9 Heart failure, unspecified; I50.32 Chronic diastolic (congestive) heart failure; I47.1 Supraventricular tachycardia; E78.00 Pure hypercholesterolemia, unspecified; I48.0 Paroxysmal atrial fibrillation; J44.9 Chronic obstructive pulmonary disease, unspecified; I48.2 Chronic atrial fibrillation; H54.7 Unspecified visual loss; H35.30 Unspecified macular degeneration; F41.9 Anxiety disorder, unspecified; I11.0 Hypertensive heart disease with heart failure; K64.9 Unspecified hemorrhoids; M19.90 Unspecified osteoarthritis, unspecified site; R42 Dizziness and giddiness; K59.00 Constipation, unspecified; R32 Unspecified urinary incontinence; M54.9 Dorsalgia, unspecified; M54.2 Cervicalgia; E78.5 Hyperlipidemia, unspecified; E83.42 Hypomagnesemia; F41.8 Other specified anxiety disorders; Z79.82 Long term (current) use of aspirin; Z87.891 Personal history of nicotine dependence; I25.2 Old myocardial infarction; M25.552 Pain in left hip; M25.551 Pain in right hip; M25.562 Pain in left knee; M25.561 Pain in right knee; R06.82 Tachypnea, not elsewhere classified; I49.8 Other specified cardiac arrhythmias; R53.83 Other fatigue; R06.2 Wheezing; R06.00 Dyspnea, unspecified; R05 Cough; R09.3 Abnormal sputum; R53.81 Other malaise; R53.1 Weakness; R60.9 Edema, unspecified; R06.02 Shortness of breath; R07.9 Chest pain, unspecified; J81.0 Acute pulmonary edema; Z96.652 Presence of left artificial knee joint; Z86.718 Personal history of other venous thrombosis and embolism; Z99.81 Dependence on supplemental oxygen; Z88.8 Allergy status to other drugs, medicaments and biological substances; Z91.048 Other nonmedicinal substance allergy status; Z79.52 Long term (current) use of systemic steroids; Z79.01 Long term (current) use of anticoagulants; Z79.899 Other long term (current) drug therapy; Z87.01 Personal history of pneumonia (recurrent)
CPT/HCPCS: 36415; 36600; 51702; 71045; 71045-26; 80048; 80053; 80162; 82553; 82803; 82962; 83735; 83880; 84439; 84443; 84484; 85007; 85025; 85027; 85610; 86140; 93005; 94002; 94003; 94640; 94660; 94664; 94760; 94761; 96365; 96368; 96375; 96376; 97110-GO; 97116-GP; 97162-GP; 97166-GO; 97530-GO; 97530-GP; 99285-25; A9270; A9270-GY; C9113; J0360; J0456; J1160; J1940; J2060; J2250; J2270; J2310; J2920; J2930; J3010; J3475; J3490; J7030; J7040; J7042; J7050; J7612

== ENCOUNTER 2018-04-20 16:49 | Emergency (ER) | payer MEDICARE, OTHER ==
--- NOTE | 2018-04-20 18:21 | EDM.PDOC ---
ED HPI GENERAL MEDICAL PROBLEM - General Chief Complaint: Respiratory Problem Stated Complaint: SOB Time Seen by Provider: 04/20/18 18:17 Source of Information: Reports: Patient, RN Notes Reviewed - History of Present Illness INITIAL COMMENTS - FREE TEXT/NARRATIVE: 72 year old female with hx COPD and CHF with worsening Dyspnea, especially with exertion the past couple of days, not coughing, no fever chills. No chest pain. Hx of severe resp. failure late last summer so want to avoid this turning into something like that. She has very occasional cough. No current nasal or sinus congestion and sore throat, fever or chills. No abdominal pain nausea or vomiting. She does also have hx of A fib. - Related Data Allergies Allergy/AdvReac Type Severity Reaction Status Date / Time adhesive Allergy Rash Verified 04/20/18 17:03 metals Allergy Rash Uncoded 04/20/18 17:03 Home Meds: Home Meds B2/Vit A,C & E/Lut/Zeaxanth/Mn [Icaps] 2 cap PO DAILY 04/20/18 [History] Digoxin 125 mcg PO DAILY 04/20/18 [History] Fluticasone/Salmeterol [Advair Hfa 230-21 Mcg Inhaler] 1 puff IH BID 04/20/18 [ History] Furosemide 20 mg PO DAILY 04/20/18 [History] Guaifenesin/Pseudoephedrne HCl [Mucinex D ER 1,200-120 mg Tab] 1 tab PO BID PRN 04/20/18 [History] Ipratropium [Atrovent HFA Inh] 1 puff INH Q6H PRN 04/20/18 [History] LORazepam 0.5 mg PO BID PRN 04/20/18 [History] Levalbuterol HCl [Levalbuterol Concentrate] 1 vial NEB Q6H PRN 04/20/18 [History ] Losartan [Cozaar] 25 mg PO DAILY 04/20/18 [History] [place]-3 Fatty Acids [Maxepa] 1,200 mg PO DAILY 04/20/18 [History] Potassium Chloride [Klor-Con M20] 20 meq PO DAILY 04/20/18 [History] Pravastatin [Pravachol] 20 mg PO DAILY 04/20/18 [History] Psyllium [Metamucil] 0.52 gm PO DAILY 04/20/18 [History] Rivaroxaban [Xarelto] 20 mg PO DAILY 04/20/18 [History] predniSONE [Prednisone] 20 mg PO DAILY PRN 04/20/18 [History] Past Medical History HEENT History: Reports: Impaired Vision, Macular Degeneration, Other (See Below) Other HEENT History: wears glasses Cardiovascular History: Reports: Afib, Heart Failure, High Cholesterol, Hypertension, [place], SOB on Exertion Other Cardiovascular History: blood clot caused heart attack Respiratory History: Reports: COPD, Pneumonia, Recurrent Gastrointestinal History: Reports: Cholelithiasis, Hemorrhoids Genitourinary History: Reports: None [employer] History: Reports: None Musculoskeletal History: Reports: Arthritis Neurological History: Reports: Vertigo Psychiatric History: Reports: Anxiety Endocrine/Metabolic History: Reports: None Hematologic History: Reports: None Immunologic History: Reports: None Oncologic (Cancer) History: Reports: None Dermatologic History: Reports: None - Past Surgical History HEENT Surgical History: Reports: Cataract Surgery GI Surgical History: Reports: Appendectomy Female Surgical History: Reports: Tubal Ligation Endocrine Surgical History: Reports: None Neurological Surgical History: Reports: None Musculoskeletal Surgical History: Reports: Other (See Below) Other Musculoskeletal Surgeries/Procedures:: partial left knee replacement Oncologic Surgical History: Reports: None Dermatological Surgical History: Reports: None Social & Family History - Family History Family Medical History: Noncontributory - Tobacco Use Smoking Status *Q: Former Smoker Used Tobacco, but Quit: Yes Month/Year Tobacco Last Used: 10 years ago - Caffeine Use Caffeine Use: Reports: None Other Caffeine Use: drinks decaffinated coffee - Recreational Drug Use Recreational Drug Use: No - Living Situation & Occupation Living situation: Reports: Occupation: Retired ED ROS GENERAL - Review of Systems Review Of Systems: See Below Constitutional: Denies: Fever, Chills, Diaphoresis HEENT: Denies: Rhinitis, Sinus Problem, Throat Pain Respiratory: Reports: Shortness of Breath, Wheezing, Cough. Denies: Sputum ( Very occasional) Cardiovascular: Denies: Chest Pain GI/Abdominal: Denies: Abdominal Pain, Nausea, Vomiting Musculoskeletal: Denies: Leg Pain Skin: Reports: No Symptoms Neurological: Reports: No Symptoms ED EXAM, GENERAL - Physical Exam Exam: See Below General Appearance: Alert, No Apparent Distress Eye Exam: Bilateral Eye: PERRL Throat/Mouth: Normal Inspection, Normal Oropharynx Head: Atraumatic. No: Facial Swelling Neck: Supple, Full Range of Motion, Other (No JVD). No: Lymphadenopathy (L), Lymphadenopathy (R) Respiratory/Chest: No Accessory Muscle Use, Respiratory Distress. No: Rales ( Mild tachypnea), Rhonchi, Wheezing Cardiovascular: Irregularly Irregular GI/Abdominal: Soft, Non-Tender. No: Guarding Back Exam: No: CVA Tenderness (L), CVA Tenderness (R) Extremities: Normal Inspection. No: Pedal Edema, Leg Pain, Increased Warmth, Redness Neurological: Alert, Oriented, No Motor/Sensory Deficits Skin Exam: Warm, Dry, Normal Color EKG INTERPRETATION EKG Date: 04/21/18 Rhythm: A-Fib [place]: Normal P-Wave: Absent QRS: Other (Q waves visible V2 and V3) ST-T: Normal Course - Vital Signs Last Recorded V/S: Last Vital Signs Temp 97 F 04/20/18 16:57 Pulse 93 04/20/18 16:57 Resp 20 04/20/18 16:57 BP 179/94 H 04/20/18 16:57 Pulse Ox 98 04/20/18 16:57 - Orders/Labs/Meds Orders: Active Orders 24 hr Category Date Time Status EKG 12 Lead [EKG Documentation Completion] [RC] STAT Care 04/20/18 17:31 Active Chest 1V Frontal [CR] Stat Exams 04/20/18 17:47 Taken Labs: Laboratory Tests 04/20/18 04/20/18 04/20/18 Range/Units 17:20 17:20 17:20 WBC 9.87 (3.98-10.04) K/mm3 RBC 4.57 (3.98-5.22) M/mm3 Hgb 13.2 (11.2-15.7) gm/L Hct 41.7 (34.1-44.9) % MCV 91.2 (79.4-94.8) fl MCH 28.9 (25.6-32.2) pg MCHC 31.7 L (32.2-35.5) g/dl RDW Std Deviation 47.2 H (36.4-46.3) fL Plt Count 225 (182-369) K/mm3 MPV 10.5 (9.4-12.3) fl Neutrophils % (Manual) 57 (40-60) % Band Neutrophils % 2 (0-10) % Lymphocytes % (Manual) 36 (20-40) % Atypical Lymphs % 0 % Monocytes % (Manual) 5 (2-10) % Eosinophils % (Manual) 0 L (0.7-5.8) % Basophils % (Manual) 0 L (0.1-1.2) Platelet Estimate Adequate RBC Morph Comment Normal Sodium 139 (136-145) mEq/L Potassium 4.4 (3.5-5.1) mEq/L Chloride 101 (98-107) mEq/L Carbon Dioxide 29 (21-32) mEq/L Anion Gap 13.4 (5-15) BUN 20 H (7-18) mg/dL Creatinine 1.2 H (0.55-1.02) mg/dL Est Cr Clr Drug Dosing 33.02 mL/min Estimated GFR (MDRD) 44 (>60) mL/min BUN/Creatinine Ratio 16.7 (14-18) Glucose 118 H (83-115) mg/dL Calcium 9.0 (8.5-10.1) mg/dL Total Bilirubin 0.6 (0.2-1.0) mg/dL AST 20 (15-37) U/L ALT 31 (14-59) U/L Alkaline Phosphatase 68 (46-116) U/L Troponin I < 0.017 (0.00-0.056) ng/mL NT-Pro-B Natriuret Pep (0-125) pg/mL Total Protein 7.4 (6.4-8.2) g/dl Albumin 3.8 (3.4-5.0) g/dl Globulin 3.6 gm/dL Albumin/Globulin Ratio 1.1 (1-2) 04/20/18 Range/Units 17:20 WBC (3.98-10.04) K/mm3 RBC (3.98-5.22) M/mm3 Hgb (11.2-15.7) gm/L Hct (34.1-44.9) % MCV (79.4-94.8) fl MCH (25.6-32.2) pg MCHC (32.2-35.5) g/dl RDW Std Deviation (36.4-46.3) fL Plt Count (182-369) K/mm3 MPV (9.4-12.3) fl Neutrophils % (Manual) (40-60) % Band Neutrophils % (0-10) % Lymphocytes % (Manual) (20-40) % Atypical Lymphs % % Monocytes % (Manual) (2-10) % Eosinophils % (Manual) (0.7-5.8) % Basophils % (Manual) (0.1-1.2) Platelet Estimate RBC Morph Comment Sodium (136-145) mEq/L Potassium (3.5-5.1) mEq/L Chloride (98-107) mEq/L Carbon Dioxide (21-32) mEq/L Anion Gap (5-15) BUN (7-18) mg/dL Creatinine (0.55-1.02) mg/dL Est Cr Clr Drug Dosing mL/min Estimated GFR (MDRD) (>60) mL/min BUN/Creatinine Ratio (14-18) Glucose (83-115) mg/dL Calcium (8.5-10.1) mg/dL Total Bilirubin (0.2-1.0) mg/dL AST (15-37) U/L ALT (14-59) U/L Alkaline Phosphatase (46-116) U/L Troponin I (0.00-0.056) ng/mL NT-Pro-B Natriuret Pep 1215 H (0-125) pg/mL Total Protein (6.4-8.2) g/dl Albumin (3.4-5.0) g/dl Globulin gm/dL Albumin/Globulin Ratio (1-2) Meds: Medications Discontinued Medications Generic Name Dose Route Start Last Admin Trade Name Freq PRN Reason Stop Dose Admin Methylprednisolone Sodium Succinate 125 mg 04/20/18 18:28 04/20/18 18:46 Solu-Medrol IVPUSH 04/20/18 18:29 125 mg ONETIME ONE Administration Departure - Departure Time of Disposition: 19:35 Disposition: Home, Self-Care 01 Condition: Fair Clinical Impression: Dyspnea Qualifiers: Dyspnea type: dyspnea on exertion Qualified Code(s): R06.09 - Other forms of dyspnea Congestive heart failure (CHF) Qualifiers: Heart failure type: combined systolic and diastolic Heart failure chronicity: acute on chronic Qualified Code(s): I50.43 - Acute on chronic combined systolic (congestive) and diastolic (congestive) heart failure COPD (chronic obstructive pulmonary disease) Qualifiers: COPD type: unspecified COPD Qualified Code(s): J44.9 - Chronic obstructive pulmonary disease, unspecified - Discharge Information Instructions: Shortness of Breath, Adult, [id number], Chronic Obstructive Pulmonary Disease, [id number], Heart Failure, [id number] Referrals: Alfa Reid MD [Primary Care Provider] - Forms: ED Department Discharge Additional Instructions: You have been given solumedrol, a form of steroid medication IV here in the ED, take an extra furosemide (lasix) 20 mg when you get home this evening and increase that to twice daily, morning and noon until you get down to your baseline of about 130 lbs. Prednisone as prescribed. See Dr Cobb in about 6 to 7 days, call for appt. in AM, return to ED if symptoms worsening in any way. - My Orders Last 24 Hours: My Active Orders 04/20/18 17:31 EKG 12 Lead [EKG Documentation Completion] [RC] STAT 04/20/18 17:47 Chest 1V Frontal [CR] Stat - Assessment/Plan Last 24 Hours: My Active Orders 04/20/18 17:31 EKG 12 Lead [EKG Documentation Completion] [RC] STAT 04/20/18 17:47 Chest 1V Frontal [CR] Stat
[2018-04-20] MEDS ORDERED: methylPREDNISolone Sodium Succinate 125 MG/2 ML SDV IVPUSH ONE (18:28)
--- NOTE | 2018-04-21 09:53 | CR ---
Chest: Portable view of the chest was obtained. Comparison: Previous chest x-ray of 07/03/17. Heart is enlarged. Tortuous thoracic aorta is seen. Lungs are clear but hyperinflated. Bony structures are grossly intact. Impression: 1. Emphysematous change. Mild cardiomegaly. 2. Nothing acute is otherwise seen. Diagnostic code #2
== END 2018-04-20 19:45 | disposition home or self-care (01) ==
LOC: JD.ED 16:49
DX: I11.0 Hypertensive heart disease with heart failure (principal); I50.43 Acute on chronic combined systolic (congestive) and diastolic (congestive) heart failure; J44.9 Chronic obstructive pulmonary disease, unspecified; I25.2 Old myocardial infarction; Z91.09 Other allergy status, other than to drugs and biological substances; Z88.8 Allergy status to other drugs, medicaments and biological substances; Z79.899 Other long term (current) drug therapy; Z87.01 Personal history of pneumonia (recurrent); Z98.49 Cataract extraction status, unspecified eye; Z90.49 Acquired absence of other specified parts of digestive tract; Z98.51 Tubal ligation status; Z87.891 Personal history of nicotine dependence
CPT/HCPCS: 36415; 71045; 80053; 83880; 84484; 85007; 85027; 87804; 93005; 96374; 99285; J2930; 93010; 99284

== ENCOUNTER 2020-07-08 20:42 | Emergency (ER) | payer MEDICARE, OTHER ==
[2020-07-08] MEDS ORDERED: Sodium Chloride 0.9% 10 ML Syringe FLUSH PRN (21:07)
[2020-07-08] MEDS ORDERED: methylPREDNISolone Sodium Succinate 125 MG/2 ML SDV IVPUSH ONE (21:08)
[2020-07-08] MEDS ORDERED: Albuterol/Ipratropium 3.0-0.5 MG/3 ML Neb Soln NEB ONE (21:09)
--- NOTE | 2020-07-08 21:14 | EDM.PDOC ---
ED HPI GENERAL MEDICAL PROBLEM - General Chief Complaint: Respiratory Problem Stated Complaint: CHEST TIGHTNESS/EAR PAIN/SORE THROAT Time Seen by Provider: 07/08/20 21:01 Source of Information: Reports: Patient, Family History Limitations: Reports: No Limitations - History of Present Illness INITIAL COMMENTS - FREE TEXT/NARRATIVE: The patient presents with tightness in her chest and shortness of breath. She also has a cough. She has no fever or chills. She has no abdominal pain, nausea or vomiting. She has a history of COPD and she is on home oxygen at 2L. She had to go up to 3L. She says this has been going on for a few days. Her was recently diagnosed with pneumonia. About 2 years ago the patient was intubated and put on a ventilator for a few days. Onset: Gradual Duration: Day(s): Location: Reports: Chest Quality: Reports: Other (tightness) Severity: Moderate Improves with: Reports: None Worsens with: Reports: None Associated Symptoms: Reports: Chest Pain, Cough, Shortness of Breath. Denies: Fever/Chills, Headaches, Nausea/Vomiting - Related Data Allergies Allergy/AdvReac Type Severity Reaction Status Date / Time adhesive Allergy Rash Verified 07/08/20 20:58 metals Allergy Rash Uncoded 07/08/20 20:58 Home Meds: Home Meds B2/Vits A,C,E/Lut/Zeaxanth/Min [Icaps] 2 cap PO DAILY 04/20/18 [History] Digoxin 125 mcg PO DAILY 04/20/18 [History] Furosemide 20 mg PO DAILY 04/20/18 [History] Guaifenesin/Pseudoephedrne HCl [Mucinex D ER 1,200-120 mg Tab] 1 tab PO BID PRN 04/20/18 [History] Losartan [Cozaar] 25 mg PO DAILY 04/20/18 [History] [place]-3 Fatty Acids [Maxepa] 1,200 mg PO DAILY 04/20/18 [History] Potassium Chloride [Klor-Con M20] 20 meq PO DAILY 04/20/18 [History] Pravastatin [Pravachol] 20 mg PO DAILY 04/20/18 [History] Rivaroxaban [Xarelto] 15 mg PO DAILY 04/20/18 [History] levalbuterol HCL [Levalbuterol Concentrate] 1 vial NEB Q6H PRN 04/20/18 [Hist ory] predniSONE [Prednisone] 40 mg PO DAILY PRN 04/20/18 [History] Aspirin [Halfprin] 81 mg PO DAILY 07/08/20 [History] Azithromycin [Zithromax] 250 mg PO DAILY #6 tab 07/08/20 [Rx] Cyclobenzaprine [Flexeril] 5 mg PO TID PRN 07/08/20 [History] Psyllium [place] [Psyllium Fiber] 1 tab PO DAILY 07/08/20 [History] Ubidecarenone [Co Q-10] 200 mg PO DAILY 07/08/20 [History] Umeclidinium-Vilanterol. 1 puff INH DAILY 07/08/20 [History] carvediloL [Carvedilol] 12.5 mg PO BID 07/08/20 [History] traMADol [Ultram] 25 mg PO BID PRN 07/08/20 [History] Past Medical History HEENT History: Reports: Impaired Vision, Macular Degeneration, Other (See Below) Other HEENT History: wears glasses Cardiovascular History: Reports: Afib, Heart Failure, High Cholesterol, Hypertension, [place], SOB on Exertion Other Cardiovascular History: blood clot caused heart attack Respiratory History: Reports: COPD, Pneumonia, Recurrent Gastrointestinal History: Reports: Cholelithiasis, Hemorrhoids Genitourinary History: Reports: None 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 Musculoskeletal History: Reports: Arthritis Neurological History: Reports: Vertigo Psychiatric History: Reports: Anxiety Endocrine/Metabolic History: Reports: None Hematologic History: Reports: None Immunologic History: Reports: None Oncologic (Cancer) History: Reports: None Dermatologic History: Reports: None - Past Surgical History HEENT Surgical History: Reports: Cataract Surgery Cardiovascular Surgical History: Reports: None Respiratory Surgical History: Reports: None GI Surgical History: Reports: Appendectomy Female Surgical History: Reports: Tubal Ligation Endocrine Surgical History: Reports: None Neurological Surgical History: Reports: None Musculoskeletal Surgical History: Reports: Other (See Below) Other Musculoskeletal Surgeries/Procedures:: partial left knee replacement Oncologic Surgical History: Reports: None Dermatological Surgical History: Reports: None Social & Family History - Family History Family Medical History: No Pertinent Family History - Tobacco Use Tobacco Use Status *Q: Former Tobacco User Used Tobacco, but Quit: Yes Month/Year Tobacco Last Used: 15 years ago - Caffeine Use Caffeine Use: Reports: Coffee Other Caffeine Use: drinks decaffinated coffee - Recreational Drug Use Recreational Drug Use: No - Living Situation & Occupation Living situation: Reports: Occupation: Retired ED ROS GENERAL - Review of Systems Review Of Systems: See Below Constitutional: Reports: No Symptoms HEENT: Reports: No Symptoms Respiratory: Reports: Shortness of Breath, Cough Cardiovascular: Reports: Chest Pain Endocrine: Reports: No Symptoms GI/Abdominal: Reports: No Symptoms : Reports: No Symptoms Musculoskeletal: Reports: No Symptoms Skin: Reports: No Symptoms ED EXAM, GENERAL - Physical Exam Exam: See Below Exam Limited By: No Limitations General Appearance: Alert, No Apparent Distress Ears: Normal External Exam Nose: Normal Inspection Head: Atraumatic, Normocephalic Neck: Normal Inspection Respiratory/Chest: No Respiratory Distress, Decreased Breath Sounds Cardiovascular: Regular Rate, Rhythm, No Edema, No Murmur GI/Abdominal: Soft, Non-Tender, No Organomegaly, No Mass Back Exam: Normal Inspection Extremities: Normal Inspection Neurological: Alert, Oriented, No Motor/Sensory Deficits #1 Interpretation EKG Date: 07/08/20 Time: 21:17 Rhythm: A-Fib Rate (Beats/Min): 97 [place]: Normal P-Wave: Absent QRS: Normal ST-T: Normal QT: Normal Course - Vital Signs Last Recorded V/S: Last Vital Signs Temp 97 F 07/08/20 20:55 Pulse 98 07/08/20 20:55 Resp 16 07/08/20 20:55 BP 194/94 H 07/08/20 20:55 Pulse Ox 97 07/08/20 21:22 - Orders/Labs/Meds Orders: Active Orders 24 hr Category Date Time Status Cardiac Monitoring [RC] . DIRECTED Care 07/08/20 21:07 Active EKG Documentation Completion [RC] STAT Care 07/08/20 21:08 Active Oxygen Therapy [RC] PRN Care 07/08/20 21:07 Active Peripheral IV Care [RC] . DIRECTED Care 07/08/20 21:08 Active RT Aerosol Therapy [RC] ASDIRECTED Care 07/08/20 21:09 Active Chest 1V Frontal [CR] Stat Exams 07/08/20 21:08 Taken CULTURE BLOOD [BC] Stat Lab 07/08/20 21:25 Received CULTURE BLOOD [BC] Stat Lab 07/08/20 21:40 Received Sodium Chloride 0.9% [Saline Flush] Med 07/08/20 21:07 Active 10 ml FLUSH ASDIRECTED PRN cefTRIAXone [Rocephin] 1 gm Med 07/08/20 22:44 Ordered Sodium Chloride 0.9% [Normal Saline] 100 ml IV ONETIME Blood Culture x2 Reflex Set [OM.PC] Stat Oth 07/08/20 21:08 Ordered Peripheral IV Insertion Adult [OM.PC] Stat Oth 07/08/20 21:07 Ordered Medication Orders Ceftriaxone Sodium 1 gm/ (Sodium Chloride) 100 mls @ 200 mls/hr IV ONETIME ONE Stop: 07/08/20 23:13 Sodium Chloride (Sodium Chloride 0.9% 10 Ml Syringe) 10 ml FLUSH ASDIRECTED PRN PRN Reason: Keep Vein Open Last Admin: 07/08/20 21:37 Dose: 10 ml Documented by: MAURICE Labs: Laboratory Tests 07/08/20 07/08/20 07/08/20 Range/Units 21:25 21:25 21:25 WBC 8.85 (3.98-10.04) K/mm3 RBC 4.26 (3.98-5.22) M/mm3 Hgb 12.6 (11.2-15.7) gm/dl Hct 40.8 (34.1-44.9) % MCV 95.8 H D (79.4-94.8) fl MCH 29.6 (25.6-32.2) pg MCHC 30.9 L (32.2-35.5) g/dl RDW Std Deviation 46.3 (36.4-46.3) fL Plt Count 206 (182-369) K/mm3 MPV 10.3 (9.4-12.3) fl Neut % (Auto) 77.2 H (34.0-71.1) % Lymph % (Auto) 10.6 L (19.3-51.7) % [place] % (Auto) 6.7 (4.7-12.5) % Eos % (Auto) 4.9 (0.7-5.8) Baso % (Auto) 0.5 (0.1-1.2) % Neut # (Auto) 6.84 H (1.56-6.13) K/mm3 Lymph # (Auto) 0.94 L (1.18-3.74) K/mm3 [place] # (Auto) 0.59 H (0.24-0.36) K/mm3 Eos # (Auto) 0.43 H (0.04-0.36) K/mm3 Baso # (Auto) 0.04 (0.01-0.08) K/mm3 Sodium 138 (136-145) mEq/L Potassium 4.1 (3.5-5.1) mEq/L Chloride 95 L (98-107) mEq/L Carbon Dioxide 37 H (21-32) mEq/L Anion Gap 10.1 (5-15) BUN 13 (7-18) mg/dL Creatinine 1.0 (0.55-1.02) mg/dL Est Cr Clr Drug Dosing 38.44 mL/min Estimated GFR (MDRD) 54 (>60) mL/min BUN/Creatinine Ratio 13.0 L (14-18) Glucose 118 H (70-99) mg/dL Lactic Acid 1.3 (0.4-2.0) mmol/L Calcium 9.0 (8.5-10.1) mg/dL Total Bilirubin 0.6 (0.2-1.0) mg/dL AST 18 (15-37) U/L ALT 25 (14-59) U/L Alkaline Phosphatase 50 (46-116) U/L Troponin I < 0.017 (0.00-0.056) ng/mL C-Reactive Protein 2.4 H* (<1.0) mg/dL Total Protein 7.5 (6.4-8.2) g/dl Albumin 4.2 (3.4-5.0) g/dl Globulin 3.3 gm/dL Albumin/Globulin Ratio 1.3 (1-2) SARS-CoV-2 RNA (CAR) (NEGATIVE) 07/08/20 Range/Units 21:30 WBC (3.98-10.04) K/mm3 RBC (3.98-5.22) M/mm3 Hgb (11.2-15.7) gm/dl Hct (34.1-44.9) % MCV (79.4-94.8) fl MCH (25.6-32.2) pg MCHC (32.2-35.5) g/dl RDW Std Deviation (36.4-46.3) fL Plt Count (182-369) K/mm3 MPV (9.4-12.3) fl Neut % (Auto) (34.0-71.1) % Lymph % (Auto) (19.3-51.7) % [place] % (Auto) (4.7-12.5) % Eos % (Auto) (0.7-5.8) Baso % (Auto) (0.1-1.2) % Neut # (Auto) (1.56-6.13) K/mm3 Lymph # (Auto) (1.18-3.74) K/mm3 [place] # (Auto) (0.24-0.36) K/mm3 Eos # (Auto) (0.04-0.36) K/mm3 Baso # (Auto) (0.01-0.08) K/mm3 Sodium (136-145) mEq/L Potassium (3.5-5.1) mEq/L Chloride (98-107) mEq/L Carbon Dioxide (21-32) mEq/L Anion Gap (5-15) BUN (7-18) mg/dL Creatinine (0.55-1.02) mg/dL Est Cr Clr Drug Dosing mL/min Estimated GFR (MDRD) (>60) mL/min BUN/Creatinine Ratio (14-18) Glucose (70-99) mg/dL Lactic Acid (0.4-2.0) mmol/L Calcium (8.5-10.1) mg/dL Total Bilirubin (0.2-1.0) mg/dL AST (15-37) U/L ALT (14-59) U/L Alkaline Phosphatase (46-116) U/L Troponin I (0.00-0.056) ng/mL C-Reactive Protein (<1.0) mg/dL Total Protein (6.4-8.2) g/dl Albumin (3.4-5.0) g/dl Globulin gm/dL Albumin/Globulin Ratio (1-2) SARS-CoV-2 RNA (CAR) Negative (NEGATIVE) Meds: Medications Generic Name Dose Route Start Last Admin Trade Name Freq PRN Reason Stop Dose Admin Ceftriaxone Sodium 1 gm/ 100 mls @ 200 mls/hr 07/08/20 22:44 Sodium Chloride IV 07/08/20 23:13 ONETIME ONE Sodium Chloride 10 ml 07/08/20 21:07 07/08/20 21:37 Sodium Chloride 0.9% 10 Ml Syringe FLUSH 10 ml ASDIRECTED PRN Administration Keep Vein Open Discontinued Medications Generic Name Dose Route Start Last Admin Trade Name Mary PRN Reason Stop Dose Admin Albuterol/Ipratropium 3 ml 07/08/20 21:09 07/08/20 21:21 Albuterol/Ipratropium 3.0-0.5 Mg/3 Ml Neb Soln NEB 07/08/20 21:10 3 ml ONETIME ONE Administration Methylprednisolone Sodium Succinate 125 mg 07/08/20 21:08 07/08/20 21:35 Methylprednisolone Sodium Succinate 125 Mg/2 Ml Sdv IVPUSH 07/08/20 21:09 125 mg ONETIME ONE Administration - Re-Assessments/Exams Free Text/Narrative Re-Assessment/Exam: 07/08/20 21:13 I ordered oxygen, IV saline lock, EKG, CXR, labs, blood cultures, lactic acid, COVID 19, duoneb and solu-medrol 125mg IV. 07/08/20 22:45 Her EKG shows atrial fibrillation with no acute changes. Her CXR shows COPD but no infiltrates. Her CBC looks good. Her CO2 was elevated at 37. Her troponin is negative. Her COVID 19 is negative. She feels a little better. I feel she has a COPD exacerbation with bronchitis early pneumonia. I will give her a dose of rocephin here and a prescription for zithromax at home. She has some prednisone at home. I will have her take that for a few days. Departure - Departure Time of Disposition: 22:50 Disposition: Home, Self-Care 01 Condition: Good Clinical Impression: COPD exacerbation, Bronchitis - Discharge Information *PRESCRIPTION DRUG MONITORING PROGRAM REVIEWED*: Not Applicable *COPY OF PRESCRIPTION DRUG MONITORING REPORT IN PATIENT BLANCO: Not Applicable Prescriptions: Azithromycin [Zithromax] 250 mg PO DAILY #6 tab Referrals: Alfa Reid MD [Primary Care Provider] - 1 Week Forms: ED Department Discharge Additional Instructions: Take your medications as prescribed. Take the zithromax 2 pills on day 1 and 1 pill on day 2 through 5. Take the prednisone for a few days that Dr Reid gave you. Follow up with Dr Reid. Please return if you are worse. Sepsis Event Note (ED) - Evaluation Sepsis Screening Result: No Definite Risk - Focused Exam Vital Signs: Vital Signs Temp Pulse Resp BP Pulse Ox Pulse Ox 07/08/20 21:22 97 07/08/20 20:55 97 F 98 16 194/94 H 96 - My Orders Last 24 Hours: My Active Orders 07/08/20 21:07 Cardiac Monitoring [RC] . DIRECTED Oxygen Therapy [RC] PRN Sodium Chloride 0.9% [Saline Flush] 10 ml FLUSH ASDIRECTED PRN Peripheral IV Insertion Adult [OM.PC] Stat 07/08/20 21:08 EKG Documentation Completion [RC] STAT Peripheral IV Care [RC] . DIRECTED Chest 1V Frontal [CR] Stat Blood Culture x2 Reflex Set [OM.PC] Stat 07/08/20 21:09 RT Aerosol Therapy [RC] ASDIRECTED 07/08/20 21:25 CULTURE BLOOD [BC] Stat 07/08/20 21:40 CULTURE BLOOD [BC] Stat 07/08/20 22:44 cefTRIAXone [Rocephin] 1 gm Sodium Chloride 0.9% [Normal Saline] 100 ml IV ONETIME - Assessment/Plan Last 24 Hours: My Active Orders 07/08/20 21:07 Cardiac Monitoring [RC] . DIRECTED Oxygen Therapy [RC] PRN Sodium Chloride 0.9% [Saline Flush] 10 ml FLUSH ASDIRECTED PRN Peripheral IV Insertion Adult [OM.PC] Stat 07/08/20 21:08 EKG Documentation Completion [RC] STAT Peripheral IV Care [RC] . DIRECTED Chest 1V Frontal [CR] Stat Blood Culture x2 Reflex Set [OM.PC] Stat 07/08/20 21:09 RT Aerosol Therapy [RC] ASDIRECTED 07/08/20 21:25 CULTURE BLOOD [BC] Stat 07/08/20 21:40 CULTURE BLOOD [BC] Stat 07/08/20 22:44 cefTRIAXone [Rocephin] 1 gm Sodium Chloride 0.9% [Normal Saline] 100 ml IV ONETIME
[2020-07-08] MEDS ORDERED: cefTRIAXone 1 GM in Sodium Chloride 0.9% 100 ML IV ONE (22:44)
--- NOTE | 2020-07-09 07:42 | CR ---
Chest: Frontal view of the chest was obtained. Comparison: Prior chest x-ray of 04/20/18. Heart size is slightly prominent. Upper mediastinum is within normal limits. Lungs are clear with no acute parenchymal change. Bony structures show nothing acute. Impression: 1. Heart size is slightly prominent. 2. Nothing acute is otherwise seen on frontal chest x-ray. Diagnostic code #2
== END 2020-07-08 23:35 | disposition home or self-care (01) ==
LOC: JD.ED 20:42
DX: J44.1 Chronic obstructive pulmonary disease with (acute) exacerbation (principal); I48.91 Unspecified atrial fibrillation; I11.0 Hypertensive heart disease with heart failure; I50.9 Heart failure, unspecified; I25.2 Old myocardial infarction; E78.00 Pure hypercholesterolemia, unspecified; Z91.018 Allergy to other foods; Z91.048 Other nonmedicinal substance allergy status; Z79.82 Long term (current) use of aspirin; Z79.899 Other long term (current) drug therapy; Z87.891 Personal history of nicotine dependence; Z20.822 Contact with and (suspected) exposure to COVID-19
CPT/HCPCS: 36415; 71045; 80053; 83605; 84484; 85025; 86140; 87040; 93005; 94640; 96365; 96375; 99285; J0696; J2930; U0002; 93010; 99284; J7620-GY

== ENCOUNTER 2021-05-06 22:10 | Emergency (ER) | payer MEDICARE, OTHER ==
[2021-05-06] MEDS ORDERED: Sodium Chloride 0.9% 10 ML Syringe FLUSH PRN (22:23)
[2021-05-06] MEDS ORDERED: methylPREDNISolone Sodium Succinate 125 MG/2 ML SDV IVPUSH ONE (22:25)
[2021-05-06] MEDS ORDERED: Albuterol/Ipratropium 3.0-0.5 MG/3 ML Neb Soln NEB ONE (22:25)
[2021-05-07] MEDS ORDERED: LORazepam 1 MG Tab PO ONE (00:26)
[2021-05-07] MEDS ORDERED: LORazepam 1 MG Tab ONE (00:27)
== END 2021-05-07 00:40 | disposition home or self-care (01) ==
LOC: JD.ED 22:10
DX: J44.1 Chronic obstructive pulmonary disease with (acute) exacerbation (principal); J01.90 Acute sinusitis, unspecified; I48.91 Unspecified atrial fibrillation; E78.00 Pure hypercholesterolemia, unspecified; I11.0 Hypertensive heart disease with heart failure; I50.9 Heart failure, unspecified; I25.2 Old myocardial infarction; Z91.048 Other nonmedicinal substance allergy status; Z79.899 Other long term (current) drug therapy; Z79.82 Long term (current) use of aspirin; Z87.891 Personal history of nicotine dependence
CPT/HCPCS: 36415; 71045; 80053; 84484; 85025; 85379; 93005; 94640; 96374; 99285; A9270; J2930; 93010; J7620-GY

== ENCOUNTER 2021-05-07 13:22 | Inpatient (IN) | payer MEDICARE, OTHER ==
[~2021-05-07 13:22] MED LIST changes: -Adenosine 12 MG/4 ML SDV ONE; +EPINEPHrine 1:10,000 1 MG/10 ML Syringe ONE
[2021-05-07] MEDS ORDERED: Succinylcholine 200 MG/10 ML MDV ONE (13:30)
[2021-05-07] MEDS ORDERED: Rocuronium 50 MG/5 ML Vial ONE (13:30)
[2021-05-07] MEDS ORDERED: propofoL 100 ML ONE (13:36)
[2021-05-07] MEDS ORDERED: Sodium Chloride 0.9% 1,000 ML ONE (13:54)
[2021-05-07] MEDS ORDERED: Sodium Chloride 0.9% 1,000 ML IV ONE (14:32)
[2021-05-07] MEDS: propofoL 100 ML IV SCH ×2 (14:40→19:41)
[2021-05-07] MEDS: Norepinephrine 4 MG in Dextrose 5% in Water 246 ML IV SCH ×2 (14:41)
[2021-05-07] MEDS ORDERED: Sodium Polystyrene Sulfonate 15 GM/60 ML Susp 60 ML Bot RECTAL ONE (15:44)
[2021-05-07] MEDS ORDERED: Iopamidol 755 Mg/ML 100 ML Bottle IVPUSH ONE (18:23)
[2021-05-07] MEDS ORDERED: Sodium Chloride 0.9% 10 ML Syringe FLUSH ONE (18:23)
[2021-05-07] MEDS ORDERED: Sodium Chloride 0.9% 100 ML IV SCH (18:30)
[2021-05-07] MEDS ORDERED: LORazepam 40 MG in Dextrose 5% in Water 20 ML IV SCH ×2 (21:45)
[2021-05-07] MEDS: Pantoprazole 40 MG Vial IVPUSH SCH (22:26)
[2021-05-07] MEDS: cefTRIAXone 2 GM in Sodium Chloride 0.9% 100 ML IV SCH (22:28)
[2021-05-07] MEDS: Hydrocortisone Sodium Succinate 100 MG/2 ML SDV IVPUSH SCH (22:28)
[2021-05-08] MEDS: Dextrose 5%-0.45% NaCl 1,000 ML IV SCH ×2 (02:29→09:07)
[2021-05-08] MEDS: propofoL 100 ML IV SCH ×4 (02:35→20:57)
[2021-05-08] MEDS: Norepinephrine 4 MG in Dextrose 5% in Water 246 ML IV SCH ×2 (02:36)
[2021-05-08] MEDS: Hydrocortisone Sodium Succinate 100 MG/2 ML SDV IVPUSH SCH ×3 (05:42→22:11)
[2021-05-08] MEDS: Pantoprazole 40 MG Vial IVPUSH SCH (08:03)
[2021-05-08] MEDS ORDERED: Metoprolol Tartrate 5 MG/5 ML SDV IVPUSH ONE (08:40)
[2021-05-08] MEDS: Carvedilol 12.5 MG Tab OGTUBE SCH ×2 (09:00→20:18)
[2021-05-08] MEDS: Rivaroxaban 15 MG Tab OGTUBE SCH (09:01)
[2021-05-08] MEDS: Digoxin 125 MCG Tab OGTUBE SCH (09:01)
[2021-05-08] MEDS ORDERED: predniSONE 20 MG Tab PO ONE (11:00)
[2021-05-08] MEDS ORDERED: predniSONE 20 MG Tab OGTUBE ONE (11:30)
[2021-05-08] MEDS: Insulin Lispro 100 Unit/ML 3 ML KwikPen SUBCUT SCH ×3 (12:03→20:22)
[2021-05-08] MEDS: D5 1/2 NS w/ 20 mEq/L KCl 1,000 ML IV SCH (12:25)
[2021-05-08] MEDS: cefTRIAXone 2 GM in Sodium Chloride 0.9% 100 ML IV SCH (22:09)
[2021-05-09] MEDS: propofoL 100 ML IV SCH ×4 (01:22→20:25)
[2021-05-09] MEDS: Hydrocortisone Sodium Succinate 100 MG/2 ML SDV IVPUSH SCH ×3 (06:36→21:55)
[2021-05-09] MEDS: Insulin Lispro 100 Unit/ML 3 ML KwikPen SUBCUT SCH ×4 (07:57→20:24)
[2021-05-09] MEDS: D5 1/2 NS w/ 20 mEq/L KCl 1,000 ML IV SCH ×2 (07:57→21:57)
[2021-05-09] MEDS: Digoxin 125 MCG Tab OGTUBE SCH (08:00)
[2021-05-09] MEDS: Rivaroxaban 15 MG Tab OGTUBE SCH (08:00)
[2021-05-09] MEDS: Pantoprazole 40 MG Vial IVPUSH SCH (08:01)
[2021-05-09] MEDS: Carvedilol 12.5 MG Tab OGTUBE SCH ×2 (08:01→20:24)
[2021-05-09] MEDS: Albuterol/Ipratropium 3.0-0.5 MG/3 ML Neb Soln NEB PRN ×2 (08:22→14:05)
[2021-05-09] MEDS ORDERED: Losartan 25 MG Tab PO ONE ×2 (20:00→21:00)
[2021-05-09] MEDS: cefTRIAXone 2 GM in Sodium Chloride 0.9% 100 ML IV SCH (21:56)
[2021-05-10] MEDS: propofoL 100 ML IV SCH ×3 (03:42→15:52)
[2021-05-10] MEDS: Hydrocortisone Sodium Succinate 100 MG/2 ML SDV IVPUSH SCH (06:33)
[2021-05-10] MEDS: Insulin Lispro 100 Unit/ML 3 ML KwikPen SUBCUT SCH ×4 (07:24→20:33)
[2021-05-10] MEDS: Carvedilol 12.5 MG Tab OGTUBE SCH ×2 (08:00→20:33)
[2021-05-10] MEDS: Digoxin 125 MCG Tab OGTUBE SCH (08:01)
[2021-05-10] MEDS: Rivaroxaban 15 MG Tab OGTUBE SCH (08:01)
[2021-05-10] MEDS: Pantoprazole 40 MG Vial IVPUSH SCH (08:01)
[2021-05-10] MEDS: Albuterol/Ipratropium 3.0-0.5 MG/3 ML Neb Soln NEB PRN ×2 (08:59→13:59)
[2021-05-10] MEDS ORDERED: Losartan 25 MG Tab PO SCH (09:00)
[2021-05-10] MEDS: D5 1/2 NS w/ 20 mEq/L KCl 1,000 ML IV SCH (11:04)
[2021-05-10] MEDS ORDERED: Sodium Chloride 0.9% 1,000 ML ONE ×2 (12:18→16:08)
[2021-05-10] MEDS ORDERED: Propofol 200 MG/20 ML SDV ONE (15:30)
[2021-05-10] MEDS ORDERED: Succinylcholine 200 MG/10 ML MDV ONE (15:30)
[2021-05-10] MEDS: Morphine 4 MG/ML Syringe IVPUSH PRN ×3 (17:22→22:48)
[2021-05-10] MEDS ORDERED: Hydrocortisone Sodium Succinate 100 MG/2 ML SDV IVPUSH SCH (18:00)
[2021-05-10] MEDS ORDERED: cefTRIAXone 1 GM in Sodium Chloride 0.9% 100 ML IV SCH (22:00)
[2021-05-11] MEDS: Morphine 4 MG/ML Syringe IVPUSH PRN ×4 (01:24→10:56)
[2021-05-11] MEDS: Pantoprazole 40 MG Vial IVPUSH SCH (08:56)
[2021-05-11] MEDS ORDERED: Furosemide 20 MG/2 ML VIAL IVPUSH SCH (09:00)
== END 2021-05-11 13:07 | disposition expired | DRG 208 ==
LOC: JD.ED 13:22 → JD.ICU 21:31
PROVIDERS: ADMIT Pediatrics; ATTEND Pediatrics
PROC: 0BH17EZ Insertion of Endotracheal Airway into Trachea, Via Natural or Artificial Opening (ICD-10-PCS; principal; 2021-05-07)
PROC: 5A1945Z Respiratory Ventilation, 24-96 Consecutive Hours (ICD-10-PCS; 2021-05-07)
PROC: 3E033XZ Introduction of Vasopressor into Peripheral Vein, Percutaneous Approach (ICD-10-PCS; 2021-05-07)
PROC: 5A12012 Performance of Cardiac Output, Single, Manual (ICD-10-PCS; 2021-05-07)
PROC: 0BH17EZ Insertion of Endotracheal Airway into Trachea, Via Natural or Artificial Opening (ICD-10-PCS; 2021-05-10)
PROC: 0DH67UZ Insertion of Feeding Device into Stomach, Via Natural or Artificial Opening (ICD-10-PCS; 2021-05-10)
DX: J96.22 Acute and chronic respiratory failure with hypercapnia (principal); J96.02 Acute respiratory failure with hypercapnia; I50.43 Acute on chronic combined systolic (congestive) and diastolic (congestive) heart failure; I21.09 ST elevation (STEMI) myocardial infarction involving other coronary artery of anterior wall; E46 Unspecified protein-calorie malnutrition; I50.9 Heart failure, unspecified; J44.0 Chronic obstructive pulmonary disease with (acute) lower respiratory infection; K92.1 Melena; I46.9 Cardiac arrest, cause unspecified; R94.31 Abnormal electrocardiogram [ECG] [EKG]; J20.9 Acute bronchitis, unspecified; J44.9 Chronic obstructive pulmonary disease, unspecified; I25.10 Atherosclerotic heart disease of native coronary artery without angina pectoris; E87.5 Hyperkalemia; Z20.822 Contact with and (suspected) exposure to COVID-19; Z66 Do not resuscitate; Z51.5 Encounter for palliative care; H54.7 Unspecified visual loss; H35.30 Unspecified macular degeneration; E78.00 Pure hypercholesterolemia, unspecified; K80.20 Calculus of gallbladder without cholecystitis without obstruction; M19.90 Unspecified osteoarthritis, unspecified site; I48.91 Unspecified atrial fibrillation; F41.9 Anxiety disorder, unspecified; Z96.652 Presence of left artificial knee joint; I11.0 Hypertensive heart disease with heart failure; R73.9 Hyperglycemia, unspecified; I27.81 Cor pulmonale (chronic); I49.3 Ventricular premature depolarization; I95.9 Hypotension, unspecified; R41.82 Altered mental status, unspecified; R00.1 Bradycardia, unspecified; Z95.1 Presence of aortocoronary bypass graft; Z79.52 Long term (current) use of systemic steroids; Z79.82 Long term (current) use of aspirin; Z79.899 Other long term (current) drug therapy; I25.2 Old myocardial infarction; Z87.01 Personal history of pneumonia (recurrent); Z98.49 Cataract extraction status, unspecified eye; Z90.49 Acquired absence of other specified parts of digestive tract; Z98.51 Tubal ligation status; Z79.01 Long term (current) use of anticoagulants; Z87.891 Personal history of nicotine dependence; Z91.09 Other allergy status, other than to drugs and biological substances; Z88.8 Allergy status to other drugs, medicaments and biological substances; Z86.718 Personal history of other venous thrombosis and embolism; Z91.048 Other nonmedicinal substance allergy status; Z99.81 Dependence on supplemental oxygen; Z68.24 Body mass index [BMI] 24.0-24.9, adult
CPT/HCPCS: 36415; 36600 ×3; 43752; 51702; 70450; 70496; 70498; 71045; 80053; 80162; 82803 ×2; 83880; 84484; 85025; 85379; 85610; 85730; 93005; 96365; 96366; 96368; 99285; A9270; J0171; J0330; J2704 ×2; J7030; J7060; Q9967; U0002; 31500; 80048; 82947; 83605; 83735; 84443; 86140; 87040; 87070; 87086; 87205; 93010; 93306; 94003; 94640; 96375; C9113; J0696; J1720; J1815; J2270; J3480; J3490; J7042; J7512; J7620-GY